=== PATIENT | female | born 1935 | race Caucasian/White ===

== ENCOUNTER 2016-10-27 11:27 | Inpatient (IN) ==
[2016-10-27] MEDS ORDERED: ALBUTEROL 2.5 MG/3 ML NEB RESP TX STA (11:48)
[2016-10-27] MEDS ORDERED: methylPREDNISolone SOD SUC 125 MG/2 ML VIAL IV STA (11:49)
--- NOTE | 2016-10-27 11:52 | Emergency Department Note ---
Enrrique Davis Meredith, am scribing for, and in the presence of, Kenneth Romero MD 11: 48. Heather Davis James D, MD, personally performed the services described in this documentation, ascribed by Montserrat Osuna in my presence, and it is both accurate and complete . Arrival - Arrival Chief Complaint: Weakness ED Nursing Triage Note: Brought in by EMS c/o generalized weakness and multiple falls-onset last night. Patient was dx with pneumonia here on Tuesday. C/o generalized pain. Denies SOB or CP. Mode of Arrival: Stretcher Limitations: No Limitations Source: Patient, Old Records Reviewed, RN Notes Reviewed Time Seen by Provider: 10/27/16 11:44 - History of Present Illness HPI Narrative: Pt is an 81 y/o white female brought to the ED by EMS with c/o generalized weakness and multiple falls since last night. She was seen here 2 days ago and was diagnosed with pneumonia. Pt denies any chest pain or shortness of breath. She has a history of HTN, NIDDM, UTI, GI bleed, IBS, GERD, arthritis, and anemia. Onset (ago): hour(s) Date of Last Menstrual Period: hysterectomy Allergies/Adverse Reactions: Allergies Allergy/AdvReac Type Severity Reaction Status Date / Time Iodinated Contrast Media - Allergy SHORTNESS Verified 03/18/16 17:28 IV Dye OF BREATH Amoxicillin [From Augmentin] AdvReac Vomiting Verified 03/18/16 17:28 clavulanic acid AdvReac Vomiting Verified 03/18/16 17:28 [From Augmentin] Home Medications: Home Medications Medication Instructions Recorded Confirmed Type Ascorbic Acid [Vitamin C] 500 mg PO DAILY 03/18/16 10/25/16 History Aspirin [Ecotrin] 81 mg PO DAILY 03/18/16 10/25/16 History Dicyclomine Cap/Tab [Bentyl 10 mg PO BID 03/18/16 10/25/16 History Cap/Tab] Ferrous Sulfate 325 mg PO BID 03/18/16 10/25/16 History Fosinopril [Monopril] 20 mg PO DAILY W/SUPPER 03/18/16 10/25/16 History Gabapentin Cap/Tab [Neurontin 300 mg PO QAM 03/18/16 10/25/16 History Cap/Tab] Gemfibrozil 600 mg PO BID 03/18/16 10/25/16 History NIFEdipine XL TAB [Procardia Xl] 60 mg PO DAILY 03/18/16 10/25/16 History Omeprazole 40 mg PO QAM 03/18/16 10/25/16 History Polyethylene Glycol Powder 17 gm PO QPM 03/18/16 10/25/16 History [Miralax] Saccharomyces Boulardii [Probiotic] 250 mg PO DAILY 03/18/16 10/25/16 History glipiZIDE [Glipizide] 10 mg PO BID 03/18/16 10/25/16 History hydroCHLOROthiazide 25 mg PO DAILY 03/18/16 10/25/16 History [Hydrochlorothiazide] Albuterol Neb [Proventil Neb] 2.5 mg RESP TX RT Q8H #90 03/24/16 10/25/16 Rx nebulization solution Gabapentin 300 mg PO QPM 10/25/16 10/25/16 History Levofloxacin Tab [Levaquin Tab] 500 mg PO DAILY #7 tablet 10/25/16 Rx Metformin HCl [Metformin HCl ER] 750 mg PO DAILY W/BREAKFAST 10/25/16 10/25/16 History Ondansetron [Ondansetron Odt] 4 mg PO Q4H PRN #10 tab.rapdis 10/25/16 Rx metFORMIN [Glucophage] 500 mg PO DAILY W/SUPPER 10/25/16 10/25/16 History Review of System - Review of System 12 point system: reviewed and no additional remarkable complaints except as stated - Review of System Constitutional: Present: as per HPI, weakness (multiple falls) Respiratory: Present: as per HPI, other (recent pneumonia diagnosis) Medical,Surgical,& Family Hx - Medical History Cardio: History of: Hypertension Endocrine: History of: Diabetes Mellitus (NIDDM) Respiratory: History of: Bronchitis, Pneumonia Genitourinary: History of: Recurring Urinary Tract Infections Gastrointestinal: History of: GERD, Gastrointestinal Bleed, GI Problems (IBS) Musculoskeletal: History of: Back/Neck Problems, Musculoskeletal Problems ( Arthritis) Hematology: History of: Anemia - Surgical History HEENT Surgeries: Surgical HX of: Eye Surgery (Cataracts), Tonsilectomy & Adenoidectomy Abdominal Surgeries: Surgical HX of: Appendectomy Reproductive Surgeries: Surgical HX of;: Hysterectomy Orthopedic Surgeries: Surgical HX of;: Total Hip Replacement, Total Knee Replacement - Family History Family History: Reports;: Family Cancer (2 Sister, 1 brother), Family Diabetes ( mother, 2 sisters, 1 brother), Family Heart Disease (1 sister), Family Hypertension (mother, father,), Family Stroke (father) Denies;: Family Anesthesia Reaction, Family Psychiatric Problems - Social History Smoking Status: Never smoker Frequency of Alcohol Use: None Type of Drug Use: None Exam Physical Examination: GENERAL: This is a well-nourished, well-developed white female in no apparent distress. VITAL SIGNS: Temperature: 98.0, Pulse: 73, Respirations: 22, Blood pressure: 150 /60, O2 Saturation: 94 HEENT: Head is normocephalic and atraumatic. Pupils are equally round and reactive to light. Extraocular movement are intact. Oropharynx is benign with moist mucous membranes. NECK: Neck is soft and supple without tenderness. There are no masses. There is no lymphadenopathy. LUNGS:Expiratory wheezes in bilateral posterior lung bassett. Chest rises symmetrically. There is no chest wall tenderness. CV: Heart is regular rate and rhythm without murmurs, rubs, or gallops. ABDOMEN: Abdomen is soft, non-tender to palpation. There are no abnormal masses palpated. There is no organomegaly. Bowel sounds are present and active. SKIN: Skin is warm and dry. No rash. EXTREMITIES: Patient has full range of motion without tenderness. There is no pedal edema. Generalized muscle weakness. NEUROLOGIC: Awake, alert, and oriented x4. Cranial nerves II through XII are grossly intact. There are no motorsensory deficits. PSYCHIATRIC: Normal affect. Normal mood. Vital Signs: Vital Signs Temperature 98.0 F 10/27/16 11:33 Pulse Rate 73 10/27/16 11:33 Respiratory Rate 18 10/27/16 11:41 Blood Pressure 150/60 10/27/16 11:33 O2 Sat by Pulse Oximetry 94 L 10/27/16 11:33 Course - Consultations Consultation #1: Discussed with Dr. Davis. Patient will be admitted to his service. Initial orders written for him. Time: :52 Disposition Clinical Impression: Pneumonia, Failed outpatient therapy, Generalized weakness Case discussed with: patient Disposition: Still a Patient Condition: Stable Time of Disposition: 11:52
--- NOTE | 2016-10-27 12:16 | XRay Report ---
XR chest 1V portable Indication: Pneumonia Comparison: Chest x-ray 10/25/2016 Technique: Portable AP chest was performed. Findings: Interval partial clearing of airspace opacities in the right cardiophrenic angle is demonstrated. The chest is otherwise stable. Impression: 1. Interval partial clearing of the lower right lung is demonstrated. 10/27/2016 12:13 PM PROCEDURE INTERPRETED AT [facility] DEPARTMENT OF RADIOLOGY Final Report Signed by: Dr. Franklin Harding
[2016-10-27 12:44] LABS: Basophils % 0.2 % (0.0-0.8); Eosinophils # 0.1 10*3/uL (0.0-0.87); Eosinophils % 0.7 % (0.00-10.9); Hematocrit 31.2 VOL% (35.7-47.0); Hemoglobin 10.2 GM/DL (12.0-16.0); Immature Granulocytes Absolute 0.17 #; Lymphocytes # 0.8 10*3/uL (1.4-4.0); Lymphocytes % 4.8 % (21.3-54.2); Mean Corpuscular HGB Conc 32.7 GM/DL (32-36); Mean Corpuscular Hemoglobin 30 PG (27-34); Mean Corpuscular Volume 90.2 FL (87-102); Mean Platelet Volume 11.7 FL (9.6-12.0); Monocytes % 6.2 % (1.7-12.7); Neutrophils # 14.4 10*3/uL (1.4-7.4); Neutrophils % 87.1 % (38.7-73.9); Platelet Count 261 T/CUMM (130-400); Red Blood Count 3.46 MC/CUMM (3.8-5.5); Red Cell Distribution Width 12.8 % (9.3-17.3); White Blood Count 16.5 T/CUMM (4-12)
[2016-10-27 13:25] LABS: Alanine Aminotransferase 13 U/L (13-56); Albumin 3.1 G/DL (3.4-5.0); Alkaline Phosphatase 71 U/L (45-117); Aspartate Amino Transferase 18 U/L (0-37); Bilirubin,Total < 0.39 MG/DL (0.2-1.0); Blood Urea Nitrogen 40 MG/DL (7-18); Calcium 9.1 MG/DL (8.5-10.1); Glucose 53 MG/DL (74-106); Osmolality,Calculated 285.4 MOS/KG (273-304); Sodium 140 MMOL/L (136-145); Total Protein 5.7 G/DL (6.4-8.3)
[2016-10-27] MEDS ORDERED: methylPREDNISolone SOD SUC 125 MG/2 ML VIAL ONE (13:38)
[2016-10-27] MEDS: SODIUM CHLORIDE 0.9% 1,000 ML IV SCH (15:20)
[2016-10-27] MEDS: LEVOFLOXACIN INJ 500 MG in PREMIX 1 EACH IV SCH (15:20)
--- NOTE | 2016-10-27 17:51 | Family Practice History&Phys ---
Assessment and Plan (1) right lower lobe pneumonia Status: Acute Assessment and plan: We will admit for IV hydration and antibiotics Current Visit: Yes (2) Generalized weakness Status: Acute Assessment and plan: Probably multifactorial in nature. Will monitor closely consult physical therapy Current Visit: Yes (3) type 2 diabetes mellitus Status: Chronic Assessment and plan: Resume home medications and start on sliding scale Current Visit: No (4) renal insufficiency Status: Acute Assessment and plan: We will hydrate well and monitor. We'll repeat labs a.m. Current Visit: Yes (5) hyperlipidemia Status: Chronic Assessment and plan: Resume home medications Current Visit: Yes (6) hypertension Status: Chronic Assessment and plan: Resume home medications and monitor closely Current Visit: No (7) gastroesophageal reflux Status: Chronic Assessment and plan: Elevate head of bed resume home meds Current Visit: Yes History of Present Illness Chief complaint: cough and nausea vomiting History of present illness: Ms. Goldstein is a 81 year old female Patient is an 81-year-old white female who was brought to emergency room by ambulance after she became extremely weak at home. Patient was seen in the emergency room on Tuesday and diagnosed as having a right lower lobe pneumonia. She had been having this nausea vomiting and became extremely weak. She apparently had fallen several times at home. She progressively became weaker. She was brought to the emergency room by ambulance where she was admitted for further evaluation and therapy. Home Medications Medication Instructions Recorded Confirmed Type Ascorbic Acid [Vitamin C] 500 mg PO DAILY 03/18/16 10/27/16 History Aspirin [Ecotrin] 81 mg PO DAILY 03/18/16 10/27/16 History Dicyclomine Cap/Tab [Bentyl 10 mg PO BID 03/18/16 10/27/16 History Cap/Tab] Ferrous Sulfate 325 mg PO BID 03/18/16 10/27/16 History Fosinopril [Monopril] 20 mg PO DAILY W/SUPPER 03/18/16 10/27/16 History Gabapentin Cap/Tab [Neurontin 300 mg PO QAM 03/18/16 10/27/16 History Cap/Tab] Gemfibrozil 600 mg PO BID 03/18/16 10/27/16 History NIFEdipine XL TAB [Procardia Xl] 60 mg PO DAILY 03/18/16 10/27/16 History Omeprazole 40 mg PO QAM 03/18/16 10/27/16 History Polyethylene Glycol Powder 17 gm PO QPM 03/18/16 10/27/16 History [Miralax] Saccharomyces Boulardii [Probiotic] 250 mg PO DAILY 03/18/16 10/27/16 History glipiZIDE [Glipizide] 10 mg PO BID 03/18/16 10/27/16 History hydroCHLOROthiazide 25 mg PO DAILY 03/18/16 10/27/16 History [Hydrochlorothiazide] Albuterol Neb [Proventil Neb] 2.5 mg RESP TX RT Q8H #90 03/24/16 10/27/16 Rx nebulization solution Gabapentin 300 mg PO QPM 10/25/16 10/27/16 History Levofloxacin Tab [Levaquin Tab] 500 mg PO DAILY #7 tablet 10/25/16 10/27/16 Rx Metformin HCl [Metformin HCl ER] 750 mg PO DAILY W/BREAKFAST 10/25/16 10/27/16 History Ondansetron [Ondansetron Odt] 4 mg PO Q4H PRN #10 tab.rapdis 10/25/16 10/27/16 Rx metFORMIN [Glucophage] 500 mg PO DAILY W/SUPPER 10/25/16 10/27/16 History Allergies Allergy/AdvReac Type Severity Reaction Status Date / Time Iodinated Contrast Media - Allergy SHORTNESS Verified 03/18/16 17:28 IV Dye OF BREATH Amoxicillin [From Augmentin] AdvReac Vomiting Verified 03/18/16 17:28 clavulanic acid AdvReac Vomiting Verified 03/18/16 17:28 [From Augmentin] Medical,Surgical,& Family Hx - Medical History Cardio: History of: Hypertension Neurology: History of: Peripheral Neuropathy HEENT: History of: Dental Problems Endocrine: History of: Diabetes Mellitus (NIDDM), Dyslipidemia Respiratory: History of: Bronchitis, Pneumonia Genitourinary: History of: Recurring Urinary Tract Infections Gastrointestinal: History of: GERD, Gastrointestinal Bleed, GI Problems (IBS) Musculoskeletal: History of: Back/Neck Problems, Musculoskeletal Problems ( Arthritis) Hematology: History of: Anemia - Surgical History HEENT Surgeries: Surgical HX of: Eye Surgery (Cataracts), Tonsilectomy & Adenoidectomy Abdominal Surgeries: Surgical HX of: Appendectomy Reproductive Surgeries: Surgical HX of;: Genitourinary Surgery (bladder suspension), Hysterectomy Orthopedic Surgeries: Surgical HX of;: Total Hip Replacement, Total Knee Replacement - Family History Family History: Reports;: Family Cancer (2 Sister, 1 brother), Family Diabetes ( mother, 2 sisters, 1 brother), Family Heart Disease (1 sister), Family Hypertension (mother, father,), Family Stroke (father) Denies;: Family Anesthesia Reaction, Family Psychiatric Problems - Social History Smoking Status: Never smoker Frequency of Alcohol Use: None Type of Drug Use: None Marital Status: Lives With:: Children Functional capacity: uses cane/walker Exam - Constitutional Vitals: Period Temp Pulse Resp BP Sys/Mendez Pulse Ox Last 24 Hr 98 F-99.6 F 68-76 16-28 103-158/50-60 91-99 General appearance: mild distress - Head Head exam: Present: normal inspection - ENT ENT exam: Present: normal exam - Neck Neck exam: Present: normal inspection - Respiratory Respiratory exam: Present: rhonchi - Cardiovascular Cardiovascular exam: Present: irregular rhythm - GI/Abdominal GI/Abdominal exam: Present: normal bowel sounds, soft - Extremities Exam Extremities exam: Present: full ROM, edema - Back Exam Back exam: Present: normal inspection - Neurological Exam Neurological exam: Present: alert, oriented X3 - Psychiatric Psychiatric exam: Present: normal affect - Skin Skin exam: Present: normal color Results - Labs CBC & BMP: 10/27/16 12:34 10/27/16 12:34
[2016-10-27] MEDS: ACETAMINOPHEN 325 MG TABLET PO PRN (21:32)
[2016-10-27] MEDS: GABAPENTIN 300 MG CAPSULE PO SCH (21:33)
[2016-10-27] MEDS: DICYCLOMINE 10 MG CAPSULE PO SCH (21:33)
[2016-10-27] MEDS: GEMFIBROZIL 600 MG TABLET PO SCH (21:33)
[2016-10-27] MEDS: DOCUSATE SODIUM 100 MG CAPSULE PO SCH (21:33)
[2016-10-27] MEDS: glipiZIDE 10 MG TABLET PO SCH (21:33)
[2016-10-27] MEDS: INSULIN LISPRO 100 UNIT/ML SUBCUT SCH ×2 (21:34→21:37)
[2016-10-27] MEDS: FERROUS SULFATE 325 MG TABLET PO SCH (21:35)
[2016-10-28] MEDS: SODIUM CHLORIDE 0.9% 1,000 ML IV SCH ×2 (00:35→08:22)
[2016-10-28 03:15] LABS: Basophils % 0.1 % (0.0-0.8); Hematocrit 29.7 VOL% (35.7-47.0); Hemoglobin 9.5 GM/DL (12.0-16.0); Immature Granulocytes % 1.1 %; Immature Granulocytes Absolute 0.12 #; Lymphocytes # 0.5 10*3/uL (1.4-4.0); Lymphocytes % 4.3 % (21.3-54.2); Mean Corpuscular Hemoglobin 29 PG (27-34); Mean Corpuscular Volume 90.8 FL (87-102); Mean Platelet Volume 12.2 FL (9.6-12.0); Monocytes # 0.4 10*3/uL (0.11-0.8); Monocytes % 3.5 % (1.7-12.7); Neutrophils # 10.2 10*3/uL (1.4-7.4); Platelet Count 269 T/CUMM (130-400); Red Blood Count 3.27 MC/CUMM (3.8-5.5); Red Cell Distribution Width 12.4 % (9.3-17.3); White Blood Count 11.2 T/CUMM (4-12)
[2016-10-28 03:19] LABS: Albumin 2.7 G/DL (3.4-5.0); Bilirubin,Total 1.2 MG/DL (0.2-1.0); Calcium 8.6 MG/DL (8.5-10.1); Potassium 4.4 MMOL/L (3.5-5.1); Total Protein 5.2 G/DL (6.4-8.3)
[2016-10-28 03:25] LABS: Ferritin 211.2 ng/ml (8-252); Magnesium 2.2 MG/DL (1.8-2.4); Thyroid Stimulating Hormone 0.336 uIU/ml (0.358-3.74)
[2016-10-28 04:54] LABS: Hypochromasia Slight; Microcytosis Slight; Platelet Estimate Normal
--- NOTE | 2016-10-28 08:10 | Family Practice Progress Note ---
Family Practice - PN: Subj Interval history: Patient states she feels much better today. She is afebrile with minimal cough today. Blood pressures have been elevated. On questioning patient states that she is only been taking 30 mg of her nifedipine instead of the 60 mg that had originally been ordered. She had reduced the dosage after having some significant diarrhea earlier this week. We will resume the 60 mg of nifedipine today. Her a.m. labs are stable except for a hemoglobin of 9.5 hematocrit 29.7. Creatinine is minimally elevated at 1.5. Osmolarity is still elevated consistent with some volume depletion. Patient is also complaining of pain in her right leg and foot secondary to the fall. We will order x-rays of these today. We will consult physical therapy to ambulate. Appearance-general alert and oriented HEENT-no acute changes Heart-irregular rate and rhythm no murmurs Lungs-clear to auscultation Abdomen-soft and nontender Extremities-slight edema, has tenderness in the right lower leg ankle and foot Neurological exam-stable to present Exam (Progress Note) - Constitutional Vitals: Period Temp Pulse Resp BP Sys/Mendez Pulse Ox Last 24 Hr 98 F-99.6 F 67-77 16-28 103-176/50-72 91-99 Results - Labs CBC & BMP: 10/28/16 02:17 10/28/16 02:17 Assessment and Plan (1) right lower lobe pneumonia Status: Acute Assessment and plan: We will admit for IV hydration and antibiotics Current Visit: Yes (2) Generalized weakness Status: Acute Assessment and plan: Probably multifactorial in nature. Will monitor closely consult physical therapy Current Visit: Yes (3) type 2 diabetes mellitus Status: Chronic Assessment and plan: Resume home medications and start on sliding scale Current Visit: No (4) renal insufficiency Status: Acute Assessment and plan: We will hydrate well and monitor. We'll repeat labs a.m. Current Visit: Yes (5) hyperlipidemia Status: Chronic Assessment and plan: Resume home medications Current Visit: Yes (6) hypertension Status: Chronic Assessment and plan: Resume home medications and monitor closely Current Visit: No (7) gastroesophageal reflux Status: Chronic Assessment and plan: Elevate head of bed resume home meds Current Visit: Yes
[2016-10-28] MEDS: LEVOFLOXACIN INJ 500 MG in PREMIX 1 EACH IV SCH (08:25)
[2016-10-28] MEDS: ASPIRIN EC 81 MG TABLET PO SCH (08:30)
[2016-10-28] MEDS: GABAPENTIN 300 MG CAPSULE PO SCH ×2 (08:30→21:19)
[2016-10-28] MEDS: FERROUS SULFATE 325 MG TABLET PO SCH ×2 (08:30→21:20)
[2016-10-28] MEDS: glipiZIDE 10 MG TABLET PO SCH ×2 (08:31→21:19)
[2016-10-28] MEDS: DOCUSATE SODIUM 100 MG CAPSULE PO SCH ×2 (08:31→21:19)
[2016-10-28] MEDS: hydroCHLOROthiazide 25 MG TABLET PO SCH (08:31)
[2016-10-28] MEDS: PANTOPRAZOLE 40 MG TABLET PO SCH (08:31)
[2016-10-28] MEDS: ASCORBIC ACID 500 MG TABLET PO SCH (08:31)
[2016-10-28] MEDS: DICYCLOMINE 10 MG CAPSULE PO SCH ×2 (08:31→21:20)
[2016-10-28] MEDS: GEMFIBROZIL 600 MG TABLET PO SCH ×2 (08:31→21:19)
[2016-10-28] MEDS: INSULIN LISPRO 100 UNIT/ML SUBCUT SCH ×2 (08:32→18:43)
--- NOTE | 2016-10-28 10:00 | Ultrasound Report ---
Exam: Carotid ultrasound Date: 10/28/2016 Comparison: None Technique: Duplex scans of the carotid and vertebral arteries using B-mode/Parker scale imaging and Doppler spectral analysis and color flow. Reason: Syncope Findings: The right ICA measures 3.3 mm in diameter and the left ICA measures 3. mm in diameter. Color-flow documented in the visualized arteries. The peak systolic velocities are as follows: Right CCA: 89.9 cm/s Right ICA: 118.4 cm/s Right ECA: 251.0 cm/s Left CCA: 163.6 cm/s Left ICA: 147.4 cm/s Left ECA: 126.4 cm/s The peak systolic ICA/CCA velocity ratios are as follows: 1.3 on the right and 0.9 on the left. Antegrade flow is present in both vertebral arteries. Impression:[Velocity measurements in the right ICA fall within the less than 50% stenosis range. The velocity measurements in the left ICA fall within the 50-69% stenosis range with heterogeneous plaque formation. However the artery is tortuous and the ICA/CCA ratio is normal which indicates that the stenosis may be less critical. Antegrade flow in both vertebral arteries.] The Society of Radiologists in Ultrasound consensus conference criteria was used. The Ultrasound images were captured and stored. PROCEDURE INTERPRETED AT [facility] DEPARTMENT OF RADIOLOGY Final Report Signed by: Dr. Sammie Nieto
--- NOTE | 2016-10-28 10:29 | XRay Report ---
Referring Physician: Rush Davis Exam: XR right ankle 2 views, XR right tibia/fibula 2 views, XR right foot 2 views Date: October 28, 2016 Reason: Right ankle pain, right foot pain secondary to fall, right leg pain secondary to fall, initial encounter Comparison: None Findings: The patient is status post right total knee replacement. Position and alignment appear satisfactory. There is mild adjacent heterotopic calcification. No acute fracture, dislocation or osseous destructive process is identified at the right tibia or fibula. There is soft tissue swelling at the right ankle, mainly at the lateral aspect. However, no acute fracture, dislocation or osseous destructive process is identified at the right ankle. There is diffuse demineralization/osteopenia at the right lower extremity. Mild hallux valgus is seen at the right foot. No acute fracture, dislocation or osseous destructive process is identified. Impression: 1. There is soft tissue swelling at the right ankle, mainly at the lateral aspect. However, no acute fracture is identified at the right ankle. 2. No acute fracture is identified at the right tibia/fibula. 3. No acute fracture is identified at the right foot. PROCEDURE INTERPRETED AT [facility] DEPARTMENT OF RADIOLOGY Final Report Signed by: Dr. Felisha Wu
[2016-10-28 10:33] LABS: Apearance,Urine CLEAR (Clear); Bilirubin,Urine Negative (Negative); Blood, Urine Negative (Negative); Glucose,Urine (UA) 150 mg/dL (Negative); Ketones,Urine Negative (Negative); Nitrite,Urine Negative (Negative); Protein,Urine 30 MG/DL; RBC,Urine 1 /HPF (0-4); Squamous Epithelial Cell,Urine Occasional /HPF (0-10); Urine Color Straw (Yellow); Urine Specific Gravity 1.011 (1.001-1.035); Urine Urobilinogen < 2.0 EU/DL (0.2-1.0); WBC,Urine <1 /HPF (0-6)
[2016-10-28] MEDS: FOSINOPRIL 20 MG TABLET PO SCH (18:44)
[2016-10-28] MEDS: metFORMIN 500 MG TABLET PO SCH (18:44)
[2016-10-28] MEDS ORDERED: cloNIDine 0.1 MG TABLET PO SCH (21:00)
[2016-10-28] MEDS: ZALEPLON 5 MG CAPSULE PO SCH (21:19)
[2016-10-29 06:56] LABS: Basophils # 0.1 10*3/uL (0.0-0.2); Basophils % 0.3 % (0.0-0.8); Eosinophils # 0.2 10*3/uL (0.0-0.87); Eosinophils % 1.5 % (0.00-10.9); Hemoglobin 9.6 GM/DL (12.0-16.0); Immature Granulocytes % 0.8 %; Immature Granulocytes Absolute 0.11 #; Lymphocytes # 1.2 10*3/uL (1.4-4.0); Lymphocytes % 7.9 % (21.3-54.2); Mean Corpuscular Hemoglobin 29 PG (27-34); Mean Corpuscular Volume 90.9 FL (87-102); Mean Platelet Volume 11.8 FL (9.6-12.0); Monocytes # 1.2 10*3/uL (0.11-0.8); Monocytes % 7.9 % (1.7-12.7); Neutrophils # 11.9 10*3/uL (1.4-7.4); Neutrophils % 81.6 % (38.7-73.9); Platelet Count 306 T/CUMM (130-400); Red Cell Distribution Width 12.6 % (9.3-17.3); White Blood Count 14.6 T/CUMM (4-12)
[2016-10-29] MEDS: INSULIN LISPRO 100 UNIT/ML SUBCUT SCH ×5 (07:28→20:53)
[2016-10-29 07:39] LABS: Calcium 8.6 MG/DL (8.5-10.1); Ferritin 176.4 ng/ml (8-252); Free T4 (Free Thyroxine) 1.07 NG/DL (0.76-1.46); Osmolality,Calculated 298.3 MOS/KG (273-304); Thyroid Stimulating Hormone 0.707 uIU/ml (0.358-3.74)
[2016-10-29] MEDS: SODIUM CHLORIDE 0.9% 1,000 ML IV SCH ×4 (08:58→22:08)
[2016-10-29] MEDS: DICYCLOMINE 10 MG CAPSULE PO SCH ×2 (08:59→20:25)
[2016-10-29] MEDS: GABAPENTIN 300 MG CAPSULE PO SCH ×2 (08:59→18:12)
[2016-10-29] MEDS: hydroCHLOROthiazide 25 MG TABLET PO SCH (08:59)
[2016-10-29] MEDS: LEVOFLOXACIN INJ 500 MG in PREMIX 1 EACH IV SCH (08:59)
[2016-10-29] MEDS: DOCUSATE SODIUM 100 MG CAPSULE PO SCH ×2 (08:59→20:25)
[2016-10-29] MEDS: FERROUS SULFATE 325 MG TABLET PO SCH ×2 (08:59→20:25)
[2016-10-29] MEDS: ASPIRIN EC 81 MG TABLET PO SCH (08:59)
[2016-10-29] MEDS: GEMFIBROZIL 600 MG TABLET PO SCH ×2 (08:59→20:25)
[2016-10-29] MEDS: ASCORBIC ACID 500 MG TABLET PO SCH (08:59)
[2016-10-29] MEDS: PANTOPRAZOLE 40 MG TABLET PO SCH (08:59)
[2016-10-29] MEDS: glipiZIDE 10 MG TABLET PO SCH ×2 (08:59→20:25)
--- NOTE | 2016-10-29 14:08 | Family Practice Progress Note ---
Family Practice - PN: Subj Interval history: Patient states that she feels stronger today. She has had increased cough and wheezing. She uses a home nebulizer and Advair at home. She has not been on any bronchodilators in the hospital. Her appetite is slowly improving. Reviewed her labs and studies. Denies any other related complaints. Seems to be slowly improved. Appearance-general alert and oriented HEENT-no acute changes Heart-regular rate and rhythm no murmurs Lungs-wheezing in bases bilaterally Abdomen-soft and nontender, no masses Extremities-slight edema Neurological exam-stable to present PLAN-we will start on respiratory treatments AND cough suppressants. She is presently on Levaquin. We will plan to repeat chest x-ray in a.m.. We will continue to increase activity. Her blood pressures have been running slightly high so we will modify her blood pressure medications. Exam (Progress Note) - Constitutional Vitals: Period Temp Pulse Resp BP Sys/Mendez Pulse Ox Last 24 Hr 97 F-99.2 F 69-82 18-22 128-166/58-86 90-98 Results - Labs CBC & BMP: 10/29/16 06:22 10/29/16 06:22 Assessment and Plan (1) right lower lobe pneumonia Status: Acute Assessment and plan: We will admit for IV hydration and antibiotics Current Visit: Yes (2) Generalized weakness Status: Acute Assessment and plan: Probably multifactorial in nature. Will monitor closely consult physical therapy Current Visit: Yes (3) type 2 diabetes mellitus Status: Chronic Assessment and plan: Resume home medications and start on sliding scale Current Visit: No (4) renal insufficiency Status: Acute Assessment and plan: We will hydrate well and monitor. We'll repeat labs a.m. Current Visit: Yes (5) hyperlipidemia Status: Chronic Assessment and plan: Resume home medications Current Visit: Yes (6) hypertension Status: Chronic Assessment and plan: Resume home medications and monitor closely Current Visit: No (7) gastroesophageal reflux Status: Chronic Assessment and plan: Elevate head of bed resume home meds Current Visit: Yes
[2016-10-29] MEDS: metFORMIN 500 MG TABLET PO SCH (16:55)
[2016-10-29] MEDS: FOSINOPRIL 20 MG TABLET PO SCH (16:56)
[2016-10-29] MEDS: ALBUTEROL/IPRATROPIUM 3 ML NEB RESP TX SCH (19:58)
[2016-10-29] MEDS: ZALEPLON 5 MG CAPSULE PO SCH (20:25)
[2016-10-29] MEDS: cloNIDine 0.1 MG TABLET PO SCH (20:25)
[2016-10-29] MEDS: ONDANSETRON 4 MG/2 ML VIAL IV PRN (20:47)
[2016-10-29] MEDS: FLUTICASONE/SALMETEROL 250-50 DISKUS 14 DOSE INH SCH (20:53)
[2016-10-29] MEDS: HYDROcodone/CHLORPHENIRAMINE ER 5 ML UDCUP PO PRN (21:35)
[2016-10-30] MEDS: ALBUTEROL/IPRATROPIUM 3 ML NEB RESP TX SCH ×4 (00:05→20:34)
[2016-10-30 04:08] LABS: Basophils % 0.3 % (0.0-0.8); Eosinophils # 0.3 10*3/uL (0.0-0.87); Eosinophils % 3.3 % (0.00-10.9); Hematocrit 27.9 VOL% (35.7-47.0); Hemoglobin 8.9 GM/DL (12.0-16.0); Immature Granulocytes % 0.7 %; Immature Granulocytes Absolute 0.07 #; Lymphocytes # 1.6 10*3/uL (1.4-4.0); Lymphocytes % 17.1 % (21.3-54.2); Mean Corpuscular HGB Conc 31.9 GM/DL (32-36); Mean Corpuscular Hemoglobin 29 PG (27-34); Mean Corpuscular Volume 89.4 FL (87-102); Mean Platelet Volume 11.7 FL (9.6-12.0); Monocytes # 1.1 10*3/uL (0.11-0.8); Monocytes % 11.9 % (1.7-12.7); Neutrophils # 6.3 10*3/uL (1.4-7.4); Neutrophils % 66.7 % (38.7-73.9); Platelet Count 291 T/CUMM (130-400); Red Blood Count 3.12 MC/CUMM (3.8-5.5); Red Cell Distribution Width 12.8 % (9.3-17.3); White Blood Count 9.5 T/CUMM (4-12)
[2016-10-30 04:37] LABS: Calcium 8.1 MG/DL (8.5-10.1); Osmolality,Calculated 288.7 MOS/KG (273-304); Potassium 3.8 MMOL/L (3.5-5.1)
[2016-10-30] MEDS: FERROUS SULFATE 325 MG TABLET PO SCH ×2 (08:09→20:08)
[2016-10-30] MEDS: ASCORBIC ACID 500 MG TABLET PO SCH (08:09)
[2016-10-30] MEDS: GABAPENTIN 300 MG CAPSULE PO SCH ×2 (08:09→20:08)
[2016-10-30] MEDS: DOCUSATE SODIUM 100 MG CAPSULE PO SCH ×2 (08:09→20:09)
[2016-10-30] MEDS: hydroCHLOROthiazide 25 MG TABLET PO SCH (08:09)
[2016-10-30] MEDS: glipiZIDE 10 MG TABLET PO SCH ×2 (08:09→20:09)
[2016-10-30] MEDS: DICYCLOMINE 10 MG CAPSULE PO SCH ×2 (08:09→20:09)
[2016-10-30] MEDS: GEMFIBROZIL 600 MG TABLET PO SCH (08:09)
[2016-10-30] MEDS: PANTOPRAZOLE 40 MG TABLET PO SCH (08:10)
[2016-10-30] MEDS: ASPIRIN EC 81 MG TABLET PO SCH (08:10)
[2016-10-30] MEDS: LEVOFLOXACIN INJ 500 MG in PREMIX 1 EACH IV SCH (08:10)
[2016-10-30] MEDS: INSULIN LISPRO 100 UNIT/ML SUBCUT SCH ×4 (08:10→20:11)
[2016-10-30] MEDS: FLUTICASONE/SALMETEROL 250-50 DISKUS 14 DOSE INH SCH ×2 (08:18→20:10)
[2016-10-30] MEDS: POLYETHYLENE GLYCOL POWDER 17 GM PACK PO SCH (09:14)
--- NOTE | 2016-10-30 09:27 | Family Practice Progress Note ---
Family Practice - PN: Subj Interval history: Patient states she feels better but is still extremely weak. Still has moderate nonproductive cough. Chest x-ray pending this a.m.. Test feels that she is breathing better overall. main complaint is constipation. A.m. vitals and labs are stable. Reviewed findings in detail. Appearance-general alert and oriented HEENT-no acute changes Heart-irregular rate and rhythm no murmurs Lungs-patient has slight wheezing in right base but overall much improved Abdomen-soft and nontender Extremities-slight edema Neurological exam-stable to present PLAN: We will continue present therapy and increase activity. Will review chest x-ray when available. Hopefully will continue to improve Exam (Progress Note) - Constitutional Vitals: Period Temp Pulse Resp BP Sys/Mendez Pulse Ox Last 24 Hr 97.3 F-98.7 F 51-88 16-20 124-166/51-96 89-98 Results - Labs CBC & BMP: 10/30/16 03:23 10/30/16 03:23 Assessment and Plan (1) right lower lobe pneumonia Status: Acute Assessment and plan: We will admit for IV hydration and antibiotics Current Visit: Yes (2) Generalized weakness Status: Acute Assessment and plan: Probably multifactorial in nature. Will monitor closely consult physical therapy Current Visit: Yes (3) type 2 diabetes mellitus Status: Chronic Assessment and plan: Resume home medications and start on sliding scale Current Visit: No (4) renal insufficiency Status: Acute Assessment and plan: We will hydrate well and monitor. We'll repeat labs a.m. Current Visit: Yes (5) hyperlipidemia Status: Chronic Assessment and plan: Resume home medications Current Visit: Yes (6) hypertension Status: Chronic Assessment and plan: Resume home medications and monitor closely Current Visit: No (7) gastroesophageal reflux Status: Chronic Assessment and plan: Elevate head of bed resume home meds Current Visit: Yes
[2016-10-30] MEDS: SODIUM CHLORIDE 0.9% 1,000 ML IV SCH ×2 (09:39→23:00)
--- NOTE | 2016-10-30 10:33 | XRay Report ---
2 view chest. Indication: Pneumonia. Comparison: October 27, 2016. The heart is normal in size. There is calcific plaque present within the aortic knob. The pulmonary vasculature is normal. There are interstitial infiltrates, mild in severity, at the lung bases, with slight worsening on the left compared to the previous study. No pleural effusion. No pneumothorax. Demineralization of the osseous structures, with exaggerated kyphosis and degenerative change. Impression: Basilar infiltrates, with left basilar worsening. PROCEDURE INTERPRETED AT [facility] DEPARTMENT OF RADIOLOGY Final Report Signed by: Dr. Celine Mckeon
[2016-10-30] MEDS: metFORMIN 500 MG TABLET PO SCH (17:17)
[2016-10-30] MEDS: FOSINOPRIL 20 MG TABLET PO SCH (17:17)
[2016-10-30] MEDS: ZALEPLON 5 MG CAPSULE PO SCH (20:09)
[2016-10-30] MEDS: cloNIDine 0.1 MG TABLET PO SCH (20:09)
[2016-10-31] MEDS: ALBUTEROL/IPRATROPIUM 3 ML NEB RESP TX SCH ×4 (00:50→21:08)
[2016-10-31] MEDS: ACETAMINOPHEN 325 MG TABLET PO PRN (03:40)
[2016-10-31 03:48] LABS: Basophils % 0.4 % (0.0-0.8); Eosinophils # 0.3 10*3/uL (0.0-0.87); Hematocrit 28.3 VOL% (35.7-47.0); Hemoglobin 8.8 GM/DL (12.0-16.0); Immature Granulocytes % 1.4 %; Immature Granulocytes Absolute 0.13 #; Lymphocytes # 1.2 10*3/uL (1.4-4.0); Mean Corpuscular HGB Conc 31.1 GM/DL (32-36); Mean Corpuscular Hemoglobin 29 PG (27-34); Mean Corpuscular Volume 92.2 FL (87-102); Mean Platelet Volume 11.3 FL (9.6-12.0); Monocytes # 0.9 10*3/uL (0.11-0.8); Monocytes % 9.9 % (1.7-12.7); Neutrophils # 6.8 10*3/uL (1.4-7.4); Neutrophils % 72.3 % (38.7-73.9); Platelet Count 262 T/CUMM (130-400); Red Blood Count 3.07 MC/CUMM (3.8-5.5); Red Cell Distribution Width 12.7 % (9.3-17.3); White Blood Count 9.5 T/CUMM (4-12)
[2016-10-31 04:20] LABS: Albumin 2.4 G/DL (3.4-5.0); Bilirubin,Total 0.5 MG/DL (0.2-1.0); Calcium 8.4 MG/DL (8.5-10.1); Total Protein 4.6 G/DL (6.4-8.3)
[2016-10-31] MEDS: GEMFIBROZIL 600 MG TABLET PO SCH ×3 (07:53→20:58)
[2016-10-31] MEDS: ONDANSETRON 4 MG/2 ML VIAL IV PRN ×2 (07:55→17:07)
[2016-10-31] MEDS: POLYETHYLENE GLYCOL POWDER 17 GM PACK PO SCH (08:48)
[2016-10-31] MEDS: DOCUSATE SODIUM 100 MG CAPSULE PO SCH ×2 (08:49→20:58)
[2016-10-31] MEDS: DICYCLOMINE 10 MG CAPSULE PO SCH ×2 (08:49→20:58)
[2016-10-31] MEDS: hydroCHLOROthiazide 25 MG TABLET PO SCH (08:49)
[2016-10-31] MEDS: LEVOFLOXACIN INJ 500 MG in PREMIX 1 EACH IV SCH (08:49)
[2016-10-31] MEDS: PANTOPRAZOLE 40 MG TABLET PO SCH (08:49)
[2016-10-31] MEDS: FERROUS SULFATE 325 MG TABLET PO SCH ×2 (08:49→20:58)
[2016-10-31] MEDS: ASPIRIN EC 81 MG TABLET PO SCH (08:49)
[2016-10-31] MEDS: GABAPENTIN 300 MG CAPSULE PO SCH ×2 (08:49→18:19)
[2016-10-31] MEDS: glipiZIDE 10 MG TABLET PO SCH ×2 (08:49→20:59)
[2016-10-31] MEDS: ASCORBIC ACID 500 MG TABLET PO SCH (08:49)
[2016-10-31] MEDS: INSULIN LISPRO 100 UNIT/ML SUBCUT SCH ×4 (08:50→20:35)
[2016-10-31] MEDS: FLUTICASONE/SALMETEROL 250-50 DISKUS 14 DOSE INH SCH ×2 (08:59→20:59)
--- NOTE | 2016-10-31 12:16 | Family Practice Progress Note ---
Family Practice - PN: Subj Interval history: Patient states she vomited this a.m.. States that she is having difficulty with food hanging in her upper esophagus. She said this has progressed over the last several weeks. Does not occur with every meal but is becoming more frequent. She has had esophageal dilatations in the past for esophageal stricture. States present symptoms feel like symptoms that she had with previous stricture. Patient states that her cough is improved but is still present. Recent chest x-ray revealed some slight worsening of pneumonia left greater than right. Her a.m. labs are stable. Appearance-general alert and oriented, appears comfortable and relaxed HEENT-no acute changes Heart-regular rate and rhythm no murmurs Lungs-she continues to have some wheezing in bases but definitely improved. Abdomen-soft and nontender, no masses or nodules noted, normal bowel sounds Extremities-slight edema Neurological exam-stable to present P L A N: Will add steroids to her present medications for bronchospasm. Will consult GI and a.m. for possible EGD. Encourage patient increase activity and sitting in chair as much as possible. We will plan repeat lab studies in a.m.. We will also repeat chest x-ray in a.m.. Exam (Progress Note) - Constitutional Vitals: Period Temp Pulse Resp BP Sys/Mendez Pulse Ox Last 24 Hr 98.3 F-98.4 F 63-76 16-22 111-158/49-71 90-98 Results - Labs CBC & BMP: 10/31/16 03:22 10/31/16 03:22 Assessment and Plan (1) right lower lobe pneumonia Status: Acute Assessment and plan: We will admit for IV hydration and antibiotics Current Visit: Yes (2) Generalized weakness Status: Acute Assessment and plan: Probably multifactorial in nature. Will monitor closely consult physical therapy Current Visit: Yes (3) type 2 diabetes mellitus Status: Chronic Assessment and plan: Resume home medications and start on sliding scale Current Visit: No (4) renal insufficiency Status: Acute Assessment and plan: We will hydrate well and monitor. We'll repeat labs a.m. Current Visit: Yes (5) hyperlipidemia Status: Chronic Assessment and plan: Resume home medications Current Visit: Yes (6) hypertension Status: Chronic Assessment and plan: Resume home medications and monitor closely Current Visit: No (7) gastroesophageal reflux Status: Chronic Assessment and plan: Elevate head of bed resume home meds Current Visit: Yes
[2016-10-31] MEDS ORDERED: BISACODYL 5 MG TABLET PO ONE (12:32)
[2016-10-31] MEDS: SODIUM CHLORIDE 0.9% 1,000 ML IV SCH ×2 (13:29→17:49)
[2016-10-31] MEDS: FOSINOPRIL 20 MG TABLET PO SCH (16:39)
[2016-10-31] MEDS: metFORMIN 500 MG TABLET PO SCH (16:39)
[2016-10-31] MEDS: HYDROcodone/CHLORPHENIRAMINE ER 5 ML UDCUP PO PRN (17:44)
[2016-10-31] MEDS ORDERED: DEXTROSE 50% 25 GM/50 ML VIAL IV ONE (20:39)
[2016-10-31] MEDS: DEXTROSE 50% 25 GM/50 ML VIAL IV PRN (20:49)
[2016-10-31] MEDS: ZALEPLON 5 MG CAPSULE PO SCH (20:58)
[2016-10-31] MEDS: cloNIDine 0.1 MG TABLET PO SCH (20:58)
[2016-11-01] MEDS: ALBUTEROL/IPRATROPIUM 3 ML NEB RESP TX SCH ×4 (00:48→19:50)
[2016-11-01] MEDS: DEXTROSE 50% 25 GM/50 ML VIAL IV PRN ×2 (03:10→05:39)
[2016-11-01] MEDS: SODIUM CHLORIDE 0.9% 1,000 ML IV SCH (05:48)
[2016-11-01 06:42] LABS: Basophils % 0.3 % (0.0-0.8); Eosinophils # 0.4 10*3/uL (0.0-0.87); Eosinophils % 3.8 % (0.00-10.9); Hematocrit 26.6 VOL% (35.7-47.0); Hemoglobin 8.4 GM/DL (12.0-16.0); Immature Granulocytes % 2.4 %; Immature Granulocytes Absolute 0.22 #; Lymphocytes # 1.4 10*3/uL (1.4-4.0); Lymphocytes % 15.1 % (21.3-54.2); Mean Corpuscular HGB Conc 31.6 GM/DL (32-36); Mean Corpuscular Hemoglobin 29 PG (27-34); Mean Corpuscular Volume 90.8 FL (87-102); Mean Platelet Volume 11.9 FL (9.6-12.0); Monocytes % 10.2 % (1.7-12.7); Neutrophils # 6.3 10*3/uL (1.4-7.4); Neutrophils % 68.2 % (38.7-73.9); Platelet Count 279 T/CUMM (130-400); Red Blood Count 2.93 MC/CUMM (3.8-5.5); Red Cell Distribution Width 12.9 % (9.3-17.3); White Blood Count 9.3 T/CUMM (4-12)
[2016-11-01 07:21] LABS: Alanine Aminotransferase 13 U/L (13-56); Albumin 2.3 G/DL (3.4-5.0); Alkaline Phosphatase 56 U/L (45-117); Aspartate Amino Transferase 13 U/L (0-37); Bilirubin,Total < 0.39 MG/DL (0.2-1.0); Blood Urea Nitrogen 19 MG/DL (7-18); Glucose 55 MG/DL (74-106); Osmolality,Calculated 278.4 MOS/KG (273-304); Potassium 4.5 MMOL/L (3.5-5.1); Sodium 140 MMOL/L (136-145); Total Protein 4.6 G/DL (6.4-8.3)
[2016-11-01] MEDS ORDERED: LACTULOSE 20 GM/30 ML UDCUP PO ONE ×2 (08:54→14:29)
[2016-11-01] MEDS: GEMFIBROZIL 600 MG TABLET PO SCH ×2 (09:04→21:00)
[2016-11-01] MEDS: FERROUS SULFATE 325 MG TABLET PO SCH ×2 (09:04→21:03)
[2016-11-01] MEDS: ASCORBIC ACID 500 MG TABLET PO SCH (09:04)
[2016-11-01] MEDS: methylPREDNISolone SOD SUC 125 MG/2 ML VIAL IV SCH ×2 (09:05→16:49)
[2016-11-01] MEDS: ASPIRIN EC 81 MG TABLET PO SCH (09:05)
[2016-11-01] MEDS: GABAPENTIN 300 MG CAPSULE PO SCH ×2 (09:05→18:14)
[2016-11-01] MEDS: POLYETHYLENE GLYCOL POWDER 17 GM PACK PO SCH (09:05)
[2016-11-01] MEDS: DICYCLOMINE 10 MG CAPSULE PO SCH ×2 (09:05→21:02)
[2016-11-01] MEDS: PANTOPRAZOLE 40 MG TABLET PO SCH (09:05)
[2016-11-01] MEDS: DOCUSATE SODIUM 100 MG CAPSULE PO SCH ×2 (09:05→21:02)
[2016-11-01] MEDS: hydroCHLOROthiazide 25 MG TABLET PO SCH (09:05)
[2016-11-01] MEDS: FLUTICASONE/SALMETEROL 250-50 DISKUS 14 DOSE INH SCH ×2 (09:06→20:59)
[2016-11-01] MEDS: LEVOFLOXACIN INJ 500 MG in PREMIX 1 EACH IV SCH (09:06)
[2016-11-01] MEDS: INSULIN LISPRO 100 UNIT/ML SUBCUT SCH ×4 (10:17→21:00)
--- NOTE | 2016-11-01 10:36 | Gastrointestinal Consult Note ---
Assessment and Plan (1) Dysphagia Status: Acute Assessment and plan: 11/01-History of dysphagia with reported dilations in past. Recent worsening of difficulty with early satiety, difficulty with some solids and pills and regurgitation. Obtain [facility] records. Plan and addendum to follow by Dr Prasad. Current Visit: Yes History of Present Illness Chief complaint: Dysphagia History of present illness: Ms. Goldstein is a 81 year old female who presented to the hospital with onset of cough, nausea and vomiting. Pt states that last Tuesday she was seen in the ER for RLL pneumonia. She was discharged home at that time on Levaquin and Zofran for nausea. She was given followup appt with Dr Davis later that week. Pt states she progressively became weaker as the days went by and continued to have some episodes of nausea and vomiting. She states that she presented back to the ER on 10.27 for increased weakness and falls and was was admitted at that time. She is noted to have a history of HTN, DM, GERD, anemia and OA. She states that she has problems at home over the last several months of GERD and at times regurgitation after she eats. She states she takes Prilosec but this doesnt always control her symptoms. Pt has a history of dysphagia and states this has worsened over the last several months. She was scheduled for repeat EGD last June but states she has been sick off and on since this time and hasnt rescheduled. She reports having trouble at times with solids and pills. Reports early satiety with eating as well at times after taking several bites of food. Pt feels like she may at times be aspirating when she eats. She cannot recall her last EGD however states it was at [facility]. She denies any weight loss. Denies melena or hematochezia. Denies coffee ground or hematemesis. Her last colonoscopy was in 2013 with findings of diverticulosis. She has a history of anemia and takes iron for this daily. Home Medications Medication Instructions Recorded Confirmed Type Ascorbic Acid [Vitamin C] 500 mg PO DAILY 03/18/16 10/27/16 History Aspirin [Ecotrin] 81 mg PO DAILY 03/18/16 10/27/16 History Dicyclomine Cap/Tab [Bentyl 10 mg PO BID 03/18/16 10/27/16 History Cap/Tab] Ferrous Sulfate 325 mg PO BID 03/18/16 10/27/16 History Fosinopril [Monopril] 20 mg PO DAILY W/SUPPER 03/18/16 10/27/16 History Gabapentin Cap/Tab [Neurontin 300 mg PO QAM 03/18/16 10/27/16 History Cap/Tab] Gemfibrozil 600 mg PO BID 03/18/16 10/27/16 History NIFEdipine XL TAB [Procardia Xl] 60 mg PO DAILY 03/18/16 10/27/16 History Omeprazole 40 mg PO QAM 03/18/16 10/27/16 History Polyethylene Glycol Powder 17 gm PO QPM 03/18/16 10/27/16 History [Miralax] Saccharomyces Boulardii [Probiotic] 250 mg PO DAILY 03/18/16 10/27/16 History glipiZIDE [Glipizide] 10 mg PO BID 03/18/16 10/27/16 History hydroCHLOROthiazide 25 mg PO DAILY 03/18/16 10/27/16 History [Hydrochlorothiazide] Albuterol Neb [Proventil Neb] 2.5 mg RESP TX RT Q8H #90 03/24/16 10/27/16 Rx nebulization solution Gabapentin 300 mg PO QPM 10/25/16 10/27/16 History Levofloxacin Tab [Levaquin Tab] 500 mg PO DAILY #7 tablet 10/25/16 10/27/16 Rx Metformin HCl [Metformin HCl ER] 750 mg PO DAILY W/BREAKFAST 10/25/16 10/27/16 History Ondansetron [Ondansetron Odt] 4 mg PO Q4H PRN #10 tab.rapdis 10/25/16 10/27/16 Rx metFORMIN [Glucophage] 500 mg PO DAILY W/SUPPER 10/25/16 10/27/16 History Allergies Allergy/AdvReac Type Severity Reaction Status Date / Time Iodinated Contrast Media - Allergy SHORTNESS Verified 03/18/16 17:28 IV Dye OF BREATH Amoxicillin [From Augmentin] AdvReac Vomiting Verified 03/18/16 17:28 clavulanic acid AdvReac Vomiting Verified 03/18/16 17:28 [From Augmentin] Medical,Surgical,& Family Hx - Medical History Cardio: History of: Hypertension Neurology: History of: Peripheral Neuropathy HEENT: History of: Dental Problems Endocrine: History of: Diabetes Mellitus (NIDDM), Dyslipidemia Respiratory: History of: Bronchitis, Pneumonia Genitourinary: History of: Recurring Urinary Tract Infections Gastrointestinal: History of: GERD, Gastrointestinal Bleed, GI Problems (IBS) Musculoskeletal: History of: Back/Neck Problems, Musculoskeletal Problems ( Arthritis) Hematology: History of: Anemia - Surgical History HEENT Surgeries: Surgical HX of: Eye Surgery (Cataracts), Tonsilectomy & Adenoidectomy Abdominal Surgeries: Surgical HX of: Appendectomy Reproductive Surgeries: Surgical HX of;: Genitourinary Surgery (bladder suspension), Hysterectomy Orthopedic Surgeries: Surgical HX of;: Total Hip Replacement, Total Knee Replacement - Family History Family History: Reports;: Family Cancer (2 Sister, 1 brother), Family Diabetes ( mother, 2 sisters, 1 brother), Family Heart Disease (1 sister), Family Hypertension (mother, father,), Family Stroke (father) Denies;: Family Anesthesia Reaction, Family Psychiatric Problems - Social History Smoking Status: Never smoker Frequency of Alcohol Use: None Type of Drug Use: None 12 point system: reviewed and no additional remarkable complaints except as stated - Constitutional Constitutional: Present: as per HPI, weakness - EENT Eyes: Present: as per HPI Ears: Present: as per HPI Nose, mouth and throat: Present: as per HPI, dysphagia - Cardiovascular Cardiovascular: Present: as per HPI - Respiratory Respiratory: Present: as per HPI - Gastrointestinal Gastrointestinal: Present: as per HPI, dyspepsia, heartburn, nausea, vomiting - Genitourinary Genitourinary: Present: as per HPI - Musculoskeletal Musculoskeletal: Present: as per HPI - Neurological Neurological: Present: as per HPI - Psychiatric Psychiatric: Present: as per HPI - Endocrine Endocrine: Present: as per HPI - Hematologic/Lymphatic Hematologic/Lymphatic: Present: as per HPI Exam - Constitutional Vitals: Period Temp Pulse Resp BP Sys/Mendez Pulse Ox Last 24 Hr 97.2 F-98.8 F 57-82 18-24 105-162/44-85 90-99 General appearance: normal weight, no acute distress - Head Head exam: Present: normal inspection, normocephalic - Eye Eye exam: Present: other (lids and conjunctiva unremarkable). Absent: scleral icterus - ENT ENT exam: Present: normal exam, normal oropharynx - Neck Neck exam: Present: normal inspection - Respiratory Respiratory exam: Present: clear to auscultation bilaterally. Absent: rales, rhonchi, wheezes - Cardiovascular Cardiovascular exam: Present: regular rate and rhythm. Absent: diastolic murmur , JVD, systolic murmur - GI/Abdominal GI/Abdominal exam: Present: normal bowel sounds, soft. Absent: ascites, distended, mass, organomegaly, tenderness - Extremities Exam Extremities exam: Present: normal inspection, full ROM - Back Exam Back exam: Present: normal inspection - Neurological Exam Neurological exam: Present: alert, oriented X3 - Psychiatric Psychiatric exam: Present: normal affect, normal mood - Skin Skin exam: Present: normal color, warm, dry Results - Labs CBC & BMP: 11/01/16 04:46 11/01/16 04:46 Lab Results: I have reviewed the past 24 hour labs
[2016-11-01] MEDS: glipiZIDE 10 MG TABLET PO SCH ×2 (14:39→21:03)
--- NOTE | 2016-11-01 15:25 | Physician Query Form ---
CLICK EDIT DOCUMENT TO SELECT QUERY ANSWER --> OK --> SIGN Korin Bear RN Clinical Phytopathology Teacher W) [phone] (f) [phone] [email or web address]: Make your selection(s) from the choices in EACH section by typing an "x" and enter comments in the comment section. Please use your independent medical judgment in providing your response. This request does not imply that any particular answer is desired or expected. CLINICAL INDICATORS: (Providers should not edit this section) Based on documentation of "Acute renal insufficiency" Creatinine from 1.70 to 1.30. GFR from 32 to 41. Monitored with serial lab checks. Treated with NS infusion. Clarify which of the following most accurately represents the patient's renal status: ( ) Acute kidney injury (non-traumatic) ( ) Acute renal failure (x ) Acute renal failure with underlying Chronic Kidney Disease (CKD) - please provide stage below ( ) Acute renal failure with pathological renal lesion ( ) Acute renal failure with necrosis ( ) tubular ( ) medullary ( ) cortical ( ) CKD - please provide stage below ( ) End Stage Renal Disease ( ) Acute interstitial nephritis ( ) Hepatorenal syndrome ( ) Other, please specify: ( ) Clinically unable to determine Chronic Kidney Disease Stages Source: National Kidney Disease Foundation ( ) Stage I (eGFR > or = 90) ( ) Stage II (eGFR 60 - 89) ( x) Stage III (eGFR 30 - 59) ( ) Stage IV (eGFR 15 - 29) ( ) Stage V (eGFR < 15 or dialysis) COMMENTS: Use of terms such as suspected, likely, or probable (associated with a specific diagnosis that is being evaluated, monitored, or treated as if it exists) are acceptable and can be restated in the discharge summary if not ruled out. MTDD
[2016-11-01] MEDS: FOSINOPRIL 20 MG TABLET PO SCH (16:50)
[2016-11-01] MEDS: ACETAMINOPHEN 325 MG TABLET PO PRN (16:53)
[2016-11-01] MEDS: metFORMIN 500 MG TABLET PO SCH (16:54)
[2016-11-01] MEDS: ZALEPLON 5 MG CAPSULE PO SCH (21:02)
[2016-11-01] MEDS: cloNIDine 0.1 MG TABLET PO SCH (21:03)
[2016-11-01] MEDS: HYDROcodone/CHLORPHENIRAMINE ER 5 ML UDCUP PO PRN (21:13)
[2016-11-02] MEDS: ALBUTEROL/IPRATROPIUM 3 ML NEB RESP TX SCH ×4 (01:04→19:16)
[2016-11-02] MEDS: SODIUM CHLORIDE 0.9% 1,000 ML IV SCH ×2 (02:31→22:45)
[2016-11-02] MEDS: methylPREDNISolone SOD SUC 125 MG/2 ML VIAL IV SCH ×3 (02:41→16:41)
[2016-11-02 06:55] LABS: Basophils % 0.1 % (0.0-0.8); Hematocrit 28.9 VOL% (35.7-47.0); Immature Granulocytes % 2.3 %; Immature Granulocytes Absolute 0.25 #; Lymphocytes # 0.5 10*3/uL (1.4-4.0); Lymphocytes % 4.7 % (21.3-54.2); Mean Corpuscular HGB Conc 31.1 GM/DL (32-36); Mean Corpuscular Hemoglobin 29 PG (27-34); Mean Corpuscular Volume 91.7 FL (87-102); Mean Platelet Volume 11.1 FL (9.6-12.0); Monocytes # 0.3 10*3/uL (0.11-0.8); Monocytes % 2.5 % (1.7-12.7); Neutrophils # 9.7 10*3/uL (1.4-7.4); Neutrophils % 90.4 % (38.7-73.9); Platelet Count 315 T/CUMM (130-400); Red Blood Count 3.15 MC/CUMM (3.8-5.5); Red Cell Distribution Width 12.6 % (9.3-17.3); White Blood Count 10.8 T/CUMM (4-12)
[2016-11-02 07:17] LABS: Lymphocytes 3 % (20-55); Platelet Estimate Adequate; Segmented Neutrophils 93 % (50-85); Total Cells Counted 100
[2016-11-02 07:18] LABS: Burr Cells Slight; Elliptocytes Few; Hypochromasia 1+
[2016-11-02] MEDS: INSULIN LISPRO 100 UNIT/ML SUBCUT SCH ×4 (08:41→21:02)
--- NOTE | 2016-11-02 08:41 | Family Practice Progress Note ---
Family Practice - PN: Subj Interval history: Patient states that she feels better today. States that her cough is improved and she is breathing better overall. Still getting choked on some food substances. Consult to GI and will defer to their decisions about need for EGD. Chest x-ray is pending from this a.m.. Her lung bassett are clear to auscultation this a.m.. Will increase activity and possible discharge in a.m. if continues to improve Exam (Progress Note) - Constitutional Vitals: Period Temp Pulse Resp BP Sys/Mendez Pulse Ox Last 24 Hr 97.8 F-98.7 F 65-86 16-22 99-162/47-89 93-99 Results - Labs CBC & BMP: 11/02/16 06:29 11/01/16 04:46 Assessment and Plan (1) right lower lobe pneumonia Status: Acute Assessment and plan: We will admit for IV hydration and antibiotics Current Visit: Yes (2) Generalized weakness Status: Acute Assessment and plan: Probably multifactorial in nature. Will monitor closely consult physical therapy Current Visit: Yes (3) type 2 diabetes mellitus Status: Chronic Assessment and plan: Resume home medications and start on sliding scale Current Visit: No (4) renal insufficiency Status: Acute Assessment and plan: We will hydrate well and monitor. We'll repeat labs a.m. Current Visit: Yes (5) hyperlipidemia Status: Chronic Assessment and plan: Resume home medications Current Visit: Yes (6) hypertension Status: Chronic Assessment and plan: Resume home medications and monitor closely Current Visit: No (7) gastroesophageal reflux Status: Chronic Assessment and plan: Elevate head of bed resume home meds Current Visit: Yes
[2016-11-02] MEDS: LEVOFLOXACIN INJ 500 MG in PREMIX 1 EACH IV SCH (08:42)
[2016-11-02] MEDS: GEMFIBROZIL 600 MG TABLET PO SCH ×2 (08:43→21:01)
[2016-11-02] MEDS: ASPIRIN EC 81 MG TABLET PO SCH (08:43)
[2016-11-02] MEDS: glipiZIDE 10 MG TABLET PO SCH ×2 (08:43→21:01)
[2016-11-02] MEDS: PANTOPRAZOLE 40 MG TABLET PO SCH (08:43)
[2016-11-02] MEDS: GABAPENTIN 300 MG CAPSULE PO SCH ×2 (08:44→18:25)
[2016-11-02] MEDS: DICYCLOMINE 10 MG CAPSULE PO SCH ×2 (08:44→21:01)
[2016-11-02] MEDS: DOCUSATE SODIUM 100 MG CAPSULE PO SCH ×2 (08:44→21:01)
[2016-11-02] MEDS: ASCORBIC ACID 500 MG TABLET PO SCH (08:44)
[2016-11-02] MEDS: FERROUS SULFATE 325 MG TABLET PO SCH ×2 (08:45→21:01)
[2016-11-02] MEDS: hydroCHLOROthiazide 25 MG TABLET PO SCH (08:45)
--- NOTE | 2016-11-02 09:03 | XRay Report ---
Exam: Chest 2 views Date: November 02, 2016 at 8:55 AM Comparison: Chest 2 views October 30, 2016 Reason: Pneumonia Findings: The cardiac silhouette is normal in size. There are minimal opacities at both lung bases. This likely represents atelectasis and possibly pneumonia. Follow-up is recommended to confirm resolution. No pneumothorax is identified, but there is likely minimal left pleural fluid. The lungs are also hyperexpanded, which can be seen in COPD. No acute osseous process is identified. Impression: There has been no significant change. PROCEDURE INTERPRETED AT [facility] Final Report Signed by: Dr. Felisha Wu
--- NOTE | 2016-11-02 09:49 | Gastrointestinal Progress Note ---
Assessment and Plan (1) Dysphagia Status: Acute Assessment and plan: 11/02-continue reports of dysphagia. Patient reports improved breathing. Chest x-ray noted with no change. For possible discharge home tomorrow. Tentatively plan for EGD tomorrow morning pending respiratory status. Plan an addendum to followed by Dr. Prasad 11/01-History of dysphagia with reported dilations in past. Recent worsening of difficulty with early satiety, difficulty with some solids and pills and regurgitation. Obtain [facility] records. Plan and addendum to follow by Dr Prasad. Current Visit: Yes Gastroenterology - PN: Subj Interval history: CC: Dysphagia Patient is seen awake and alert sitting up in bed. Physical therapy at bedside. Patient states she is feeling much stronger today. Denies any abdominal pain, nausea or vomiting. States she feels like she is breathing a little better as well. She does complain of continued sensation of food becoming lodged in her throat as she is eating. Chest x-ray this morning shows no significant change however patient clinically appears to be doing better. WBC unremarkable, afebrile. Patient is noted for possible discharge home tomorrow. If patient's respiratory status continues to improve could tentatively plan EGD for tomorrow prior to discharge. Abdomen is soft, nontender. ROS: Denies shortness of breath or chest pain Exam (Progress Note) - Constitutional Vitals: Period Temp Pulse Resp BP Sys/Mendez Pulse Ox Last 24 Hr 97.8 F-98.7 F 65-86 16-22 99-162/47-89 93-99 General appearance: normal weight, no acute distress - Head Head exam: Present: normal inspection, normocephalic - Eye Eye exam: Present: other (Lids and conjunctivae unremarkable). Absent: scleral icterus - ENT ENT exam: Present: normal exam, normal oropharynx - Neck Neck exam: Present: normal inspection - Respiratory Respiratory exam: Present: clear to auscultation bilaterally. Absent: rales, rhonchi, wheezes - Cardiovascular Cardiovascular exam: Present: regular rate and rhythm. Absent: diastolic murmur , JVD, systolic murmur - GI/Abdominal GI/Abdominal exam: Present: normal bowel sounds, soft. Absent: ascites, distended, mass, organomegaly, tenderness - Extremities Exam Extremities exam: Present: normal inspection, full ROM - Back Exam Back exam: Present: normal inspection - Neurological Exam Neurological exam: Present: alert, oriented X3 - Psychiatric Psychiatric exam: Present: normal affect, normal mood - Skin Skin exam: Present: normal color, warm, dry Results - Labs CBC & BMP: 11/02/16 06:29 11/01/16 04:46 Lab Results: I have reviewed the past 24 hour labs - Diagnostic Findings Procedure: Chest x-ray: report reviewed by me
[2016-11-02] MEDS: POLYETHYLENE GLYCOL POWDER 17 GM PACK PO SCH (11:07)
[2016-11-02] MEDS: ACETAMINOPHEN 325 MG TABLET PO PRN ×2 (14:18→20:01)
[2016-11-02] MEDS: metFORMIN 500 MG TABLET PO SCH (16:43)
[2016-11-02] MEDS: FOSINOPRIL 20 MG TABLET PO SCH (16:47)
[2016-11-02] MEDS: ZALEPLON 5 MG CAPSULE PO SCH (21:01)
[2016-11-02] MEDS: cloNIDine 0.1 MG TABLET PO SCH (21:01)
[2016-11-02] MEDS: HYDROcodone/CHLORPHENIRAMINE ER 5 ML UDCUP PO PRN (21:02)
[2016-11-02] MEDS: FLUTICASONE/SALMETEROL 250-50 DISKUS 14 DOSE INH SCH ×2 (21:12→22:55)
[2016-11-03] MEDS: ALBUTEROL/IPRATROPIUM 3 ML NEB RESP TX SCH ×4 (00:12→18:49)
[2016-11-03] MEDS: methylPREDNISolone SOD SUC 125 MG/2 ML VIAL IV SCH ×3 (02:20→17:54)
[2016-11-03 06:08] LABS: Basophils % 0.1 % (0.0-0.8); Hematocrit 26.5 VOL% (35.7-47.0); Hemoglobin 8.5 GM/DL (12.0-16.0); Immature Granulocytes % 1.5 %; Lymphocytes # 0.5 10*3/uL (1.4-4.0); Lymphocytes % 3.9 % (21.3-54.2); Mean Corpuscular HGB Conc 32.1 GM/DL (32-36); Mean Corpuscular Hemoglobin 29 PG (27-34); Mean Corpuscular Volume 89.8 FL (87-102); Mean Platelet Volume 11.2 FL (9.6-12.0); Monocytes # 0.5 10*3/uL (0.11-0.8); Monocytes % 3.6 % (1.7-12.7); Neutrophils # 12.5 10*3/uL (1.4-7.4); Neutrophils % 90.9 % (38.7-73.9); Platelet Count 342 T/CUMM (130-400); Red Blood Count 2.95 MC/CUMM (3.8-5.5); Red Cell Distribution Width 12.9 % (9.3-17.3); White Blood Count 13.8 T/CUMM (4-12)
[2016-11-03 06:32] LABS: Osmolality,Calculated 290.3 MOS/KG (273-304); Potassium 5.2 MMOL/L (3.5-5.1)
[2016-11-03 06:57] LABS: Band Neutrophils 1 % (0-10); Lymphocytes 3 % (20-55); Segmented Neutrophils 95 % (50-85); Total Cells Counted 100
[2016-11-03 06:58] LABS: Hypochromasia 1+; Platelet Estimate Adequate
[2016-11-03] MEDS ORDERED: FUROSEMIDE 20 MG/2 ML VIAL IV ONE (09:00)
[2016-11-03] MEDS ORDERED: LIDOCAINE 2% 5 ML VIAL ONE (13:19)
[2016-11-03] MEDS ORDERED: PROPOFOL 200 MG/20 ML VIAL IV ONE (13:19)
--- NOTE | 2016-11-03 13:26 | History and Physical Update ---
History and Physical Update - History and Physical H&P was reviewed, the patient examined and there: are no changes in the patients condition since last H&P was completed. - Physical Exam Mental Status: alert and oriented Heart: regular rate and rhythm Lung: clear to auscultation Abdomen: within normal limits Vitals: within normal limits
--- NOTE | 2016-11-03 13:29 | Operative Note ---
Date of procedure: 11/03/16 Pre-op diagnosis: dysphagia Procedure: Procedure: Esophagogastroduodenoscopy with bougie dilation esophagus Brief clinical abstract: 81-year-old female has had recent dysphagia to solids. Her weight stable. Indication for procedure: Dysphagia Endoscopic findings:[After informed consent was obtained, the patient was placed in the left lateral decubitus position. The gastroscope was inserted in the upper esophagus under direct vision with no resistance encountered. Esophageal mucosa appeared normal down to the squamocolumnar junction. There was a mildly obstructive fibrous appearing stricture at that level consistent with reflux etiology. A small hiatal hernia was present just distal to this. The endoscope was advanced in the stomach which was carefully examined including retroflexed view of the cardia and fundus with no other abnormality seen. The pyloric channel, duodenal bulb, second and third portion of the duodenum were normal. The endoscope was withdrawn and Llanos dilator size 54 Hungarian was inserted in the upper esophagus and advanced to the level of the GE junction with mild resistance encountered. No blood was noted on the dilator afterwards and she had no chest pain. She appeared to tolerate the procedure well. Impression: #1 distal esophageal stricture secondary to GERD-status post bougie dilation #2 small hiatal hernia Recommendations: Continue PPI therapy. Relate as needed for dysphagia symptoms. Anesthesia: MAC Surgeon / Physician: Pramod Prasad Estimated blood loss: none Specimens: none sent Condition: stable Disposition: post procedure unit Results - Labs CBC & BMP: 11/03/16 05:10 11/03/16 05:10 Discharge Plan - Discharge Medications No Action Saccharomyces Boulardii [Probiotic] 250 mg PO DAILY Ascorbic Acid [Vitamin C] 500 mg PO DAILY Omeprazole 40 mg PO QAM Dicyclomine Cap/Tab [Bentyl Cap/Tab] 10 mg PO BID Aspirin [Ecotrin] 81 mg PO DAILY Polyethylene Glycol Powder [Miralax] 17 gm PO QPM NIFEdipine XL TAB [Procardia Xl] 60 mg PO DAILY hydroCHLOROthiazide [Hydrochlorothiazide] 25 mg PO DAILY glipiZIDE [Glipizide] 10 mg PO BID Gemfibrozil 600 mg PO BID Gabapentin Cap/Tab [Neurontin Cap/Tab] 300 mg PO QAM Fosinopril [Monopril] 20 mg PO DAILY W/SUPPER Ferrous Sulfate 325 mg PO BID Albuterol Neb [Proventil Neb] 2.5 mg RESP TX RT Q8H #90 nebulization solution Gabapentin 300 mg PO QPM Metformin HCl [Metformin HCl ER] 750 mg PO DAILY W/BREAKFAST Levofloxacin Tab [Levaquin Tab] 500 mg PO DAILY #7 tablet Ondansetron [Ondansetron Odt] 4 mg PO Q4H PRN #10 tab.rapdis PRN Reason: Nausea metFORMIN [Glucophage] 500 mg PO DAILY W/SUPPER - Follow Up or Referral - Forms/Instructions
--- NOTE | 2016-11-03 14:36 | Anesthesia ---
Anesthesia Post OP - Post Ansesthetic Evaluation Patient seen in post op: Yes Resp: within normal limits CV: within normal limits Mental: within normal limits Temp: within normal limits [id number]: within normal limits Nausea and Vomiting: within normal limits Pain: within normal limits
[2016-11-03] MEDS: ASCORBIC ACID 500 MG TABLET PO SCH (15:11)
[2016-11-03] MEDS: FERROUS SULFATE 325 MG TABLET PO SCH ×2 (15:11→21:01)
[2016-11-03] MEDS: GABAPENTIN 300 MG CAPSULE PO SCH ×2 (15:12→18:01)
[2016-11-03] MEDS: FLUTICASONE/SALMETEROL 250-50 DISKUS 14 DOSE INH SCH ×2 (15:12→21:38)
[2016-11-03] MEDS: PANTOPRAZOLE 40 MG TABLET PO SCH (15:12)
[2016-11-03] MEDS: DOCUSATE SODIUM 100 MG CAPSULE PO SCH ×2 (15:12→21:01)
[2016-11-03] MEDS: DICYCLOMINE 10 MG CAPSULE PO SCH ×2 (15:12→21:01)
[2016-11-03] MEDS: ASPIRIN EC 81 MG TABLET PO SCH (15:12)
[2016-11-03] MEDS: hydroCHLOROthiazide 25 MG TABLET PO SCH (15:12)
[2016-11-03] MEDS: POLYETHYLENE GLYCOL POWDER 17 GM PACK PO SCH (15:13)
[2016-11-03] MEDS: GEMFIBROZIL 600 MG TABLET PO SCH ×2 (15:14→21:01)
[2016-11-03] MEDS: INSULIN LISPRO 100 UNIT/ML SUBCUT SCH ×4 (15:15→21:02)
[2016-11-03] MEDS: LEVOFLOXACIN INJ 500 MG in PREMIX 1 EACH IV SCH (15:15)
[2016-11-03] MEDS: glipiZIDE 10 MG TABLET PO SCH ×2 (15:17→21:01)
[2016-11-03] MEDS: FOSINOPRIL 20 MG TABLET PO SCH (17:54)
[2016-11-03] MEDS: SODIUM CHLORIDE 0.9% 1,000 ML IV SCH (17:55)
[2016-11-03] MEDS: metFORMIN 500 MG TABLET PO SCH (17:58)
--- NOTE | 2016-11-03 19:01 | Family Practice Progress Note ---
Family Practice - PN: Subj Interval history: Patient is somewhat lethargic following EGD this a.m.. Patient was noted to have a distal esophageal stricture which was dilated. Patient tolerated procedure well with no competitions. Overall she has continued to improve. Her lung bassett are clear to auscultation this p.m. She has not ambulated much today because of the sedation from the EGD. We'll monitor overnight and increased activity in a.m.. Hopefully can discharge in a.m. if patient doing well Exam (Progress Note) - Constitutional Vitals: Period Temp Pulse Resp BP Sys/Mendez Pulse Ox Last 24 Hr 98.1 F-100.1 F 65-87 16-24 126-167/57-76 88-99 Results - Labs CBC & BMP: 11/03/16 05:10 11/03/16 05:10 Assessment and Plan (1) right lower lobe pneumonia Status: Acute Assessment and plan: We will admit for IV hydration and antibiotics Current Visit: Yes (2) Generalized weakness Status: Acute Assessment and plan: Probably multifactorial in nature. Will monitor closely consult physical therapy Current Visit: Yes (3) type 2 diabetes mellitus Status: Chronic Assessment and plan: Resume home medications and start on sliding scale Current Visit: No (4) renal insufficiency Status: Acute Assessment and plan: We will hydrate well and monitor. We'll repeat labs a.m. Current Visit: Yes (5) hyperlipidemia Status: Chronic Assessment and plan: Resume home medications Current Visit: Yes (6) hypertension Status: Chronic Assessment and plan: Resume home medications and monitor closely Current Visit: No (7) gastroesophageal reflux Status: Chronic Assessment and plan: Elevate head of bed resume home meds Current Visit: Yes
[2016-11-03] MEDS ORDERED: GABAPENTIN 300 MG CAPSULE PO SCH (21:00)
[2016-11-03] MEDS: ZALEPLON 5 MG CAPSULE PO SCH (21:01)
[2016-11-03] MEDS: cloNIDine 0.1 MG TABLET PO SCH (21:01)
[2016-11-04] MEDS: ALBUTEROL/IPRATROPIUM 3 ML NEB RESP TX SCH ×2 (00:08→08:03)
[2016-11-04] MEDS: methylPREDNISolone SOD SUC 125 MG/2 ML VIAL IV SCH ×2 (00:26→08:08)
[2016-11-04 07:35] LABS: Hematocrit 31.7 VOL% (35.7-47.0); Hemoglobin 9.8 GM/DL (12.0-16.0); Immature Granulocytes % 1.7 %; Immature Granulocytes Absolute 0.21 #; Lymphocytes # 0.6 10*3/uL (1.4-4.0); Lymphocytes % 4.7 % (21.3-54.2); Mean Corpuscular HGB Conc 30.9 GM/DL (32-36); Mean Corpuscular Hemoglobin 28 PG (27-34); Mean Corpuscular Volume 91.6 FL (87-102); Mean Platelet Volume 10.8 FL (9.6-12.0); Monocytes # 0.5 10*3/uL (0.11-0.8); Monocytes % 3.7 % (1.7-12.7); Neutrophils # 11.3 10*3/uL (1.4-7.4); Neutrophils % 89.9 % (38.7-73.9); Platelet Count 436 T/CUMM (130-400); Red Blood Count 3.46 MC/CUMM (3.8-5.5); Red Cell Distribution Width 12.9 % (9.3-17.3); White Blood Count 12.5 T/CUMM (4-12)
[2016-11-04 07:59] LABS: Band Neutrophils 2 % (0-10); Hypochromasia 1+; Lymphocytes 4 % (20-55); Microcytosis 1+; Platelet Estimate Increased; Segmented Neutrophils 91 % (50-85); Total Cells Counted 100
[2016-11-04 08:06] LABS: Albumin 3.2 G/DL (3.4-5.0); Calcium 9.2 MG/DL (8.5-10.1); Potassium 4.7 MMOL/L (3.5-5.1); Total Protein 5.9 G/DL (6.4-8.3)
[2016-11-04] MEDS: INSULIN LISPRO 100 UNIT/ML SUBCUT SCH (08:07)
[2016-11-04] MEDS: POLYETHYLENE GLYCOL POWDER 17 GM PACK PO SCH (08:08)
[2016-11-04] MEDS: GEMFIBROZIL 600 MG TABLET PO SCH (08:11)
[2016-11-04] MEDS: ASCORBIC ACID 500 MG TABLET PO SCH (08:11)
[2016-11-04] MEDS: DICYCLOMINE 10 MG CAPSULE PO SCH (08:11)
[2016-11-04] MEDS: PANTOPRAZOLE 40 MG TABLET PO SCH (08:11)
[2016-11-04] MEDS: glipiZIDE 10 MG TABLET PO SCH (08:11)
[2016-11-04] MEDS: FERROUS SULFATE 325 MG TABLET PO SCH (08:11)
[2016-11-04] MEDS: hydroCHLOROthiazide 25 MG TABLET PO SCH (08:11)
[2016-11-04] MEDS: DOCUSATE SODIUM 100 MG CAPSULE PO SCH (08:12)
[2016-11-04] MEDS: ASPIRIN EC 81 MG TABLET PO SCH (08:13)
[2016-11-04] MEDS: LEVOFLOXACIN INJ 500 MG in PREMIX 1 EACH IV SCH (08:13)
--- NOTE | 2016-11-04 08:14 | Discharge Summary ---
Hospital Course - Hospital Course Hospital Course: History of present illness: Ms. Goldstein is a 81 year old female Patient is an 81-year-old white female who was brought to emergency room by ambulance after she became extremely weak at home. Patient was seen in the emergency room on Tuesday and diagnosed as having a right lower lobe pneumonia. She had been having this nausea vomiting and became extremely weak. She apparently had fallen several times at home. She progressively became weaker. She was brought to the emergency room by ambulance where she was admitted for further evaluation and therapy. Diagnosis - Discharge Diagnosis (1) right lower lobe pneumonia Status: Acute (2) Generalized weakness Status: Acute (3) type 2 diabetes mellitus Status: Chronic (4) renal insufficiency Status: Acute (5) hyperlipidemia Status: Chronic (6) hypertension Status: Chronic (7) gastroesophageal reflux Status: Chronic Discharge Plan - Discharge Data Disposition: Disch To Home/Self Care Condition at Discharge: Stable Discharge Diet: diabetic diet Activity: ambulate only with your walker Weight Bearing at Discharge: weight bear as tolerated Contact your physician if you experience:: fever over 101, Shortness of breath - Discharge Medications Continue Saccharomyces Boulardii [Probiotic] 250 mg PO DAILY Ascorbic Acid [Vitamin C] 500 mg PO DAILY Omeprazole 40 mg PO QAM Dicyclomine Cap/Tab [Bentyl Cap/Tab] 10 mg PO BID Aspirin [Ecotrin] 81 mg PO DAILY Polyethylene Glycol Powder [Miralax] 17 gm PO QPM NIFEdipine XL TAB [Procardia Xl] 60 mg PO DAILY hydroCHLOROthiazide [Hydrochlorothiazide] 25 mg PO DAILY glipiZIDE [Glipizide] 10 mg PO BID Gemfibrozil 600 mg PO BID Gabapentin Cap/Tab [Neurontin Cap/Tab] 600 mg PO QAM Fosinopril [Monopril] 20 mg PO DAILY W/SUPPER Ferrous Sulfate 325 mg PO BID Albuterol Neb [Proventil Neb] 2.5 mg RESP TX RT Q8H #90 nebulization solution Gabapentin 600 mg PO BEDTIME Metformin HCl [Metformin HCl ER] 750 mg PO DAILY W/BREAKFAST Levofloxacin Tab [Levaquin Tab] 500 mg PO DAILY #7 tablet Ondansetron [Ondansetron Odt] 4 mg PO Q4H PRN #10 tab.rapdis PRN Reason: Nausea metFORMIN [Glucophage] 500 mg PO DAILY W/SUPPER - Follow Up or Referral Follow Up: Rush Davis DO [Physician] - - Forms/Instructions Exam - Constitutional Vitals: Period Temp Pulse Resp BP Sys/Mendez Pulse Ox Last 24 Hr 98.1 F-99.4 F 64-79 18-24 110-167/54-76 88-99 Discharge Results Labs on day of discharge: Labs from last 24 hours 11/04/16 11/04/16 11/04/16 07:50 07:21 07:21 WBC 12.5 H RBC 3.46 L Hgb 9.8 L Hct 31.7 L MCV 91.6 MCH 28 MCHC 30.9 L RDW 12.9 Plt Count 436 H D MPV 10.8 Neut % (Auto) 89.9 H Lymph % (Auto) 4.7 L Cottle % (Auto) 3.7 Eos % (Auto) 0.0 Baso % (Auto) 0.0 Neut # (Auto) 11.3 H Lymph # (Auto) 0.6 L [place] # (Auto) 0.5 Eos # (Auto) 0.0 Baso # (Auto) 0.0 Total Counted 100 Immature Gran % 1.7 Nucleated RBC % 0.0 Immature Gran # 0.21 Segmented Neutrophils 91 H Band Neutrophils 2 Lymphocytes 4 L Monocytes 3 Nucleated RBCs # 0.00 Platelet Estimate Increased Hypochromasia 1+ Microcytosis 1+ Morphology Comment Sodium 143 Potassium 4.7 Chloride 105 Carbon Dioxide 27 Anion Gap 15.7 H BUN 35 H Creatinine 1.60 H GFR Calculation 32 BUN/Creatinine Ratio 21.00 H Glucose 242 H POC Glucose 259 H Calculated Osmolality 300.0 Calcium 9.2 Total Bilirubin 1.00 AST 8 ALT 17 Alkaline Phosphatase 70 Total Protein 5.9 L Albumin 3.2 L Globulin 2.7 Albumin/Globulin Ratio 1.1 11/03/16 11/03/16 11/03/16 19:19 17:34 15:09 WBC RBC Hgb Hct MCV MCH MCHC RDW Plt Count MPV Neut % (Auto) Lymph % (Auto) Cottle % (Auto) Eos % (Auto) Baso % (Auto) Neut # (Auto) Lymph # (Auto) Cottle # (Auto) Eos # (Auto) Baso # (Auto) Total Counted Immature Gran % Nucleated RBC % Immature Gran # Segmented Neutrophils Band Neutrophils Lymphocytes Monocytes Nucleated RBCs # Platelet Estimate Hypochromasia Microcytosis Morphology Comment Sodium Potassium Chloride Carbon Dioxide Anion Gap BUN Creatinine GFR Calculation BUN/Creatinine Ratio Glucose POC Glucose 204 H 180 H 110 H Calculated Osmolality Calcium Total Bilirubin AST ALT Alkaline Phosphatase Total Protein Albumin Globulin Albumin/Globulin Ratio 11/03/16 11/03/16 11:29 08:06 WBC RBC Hgb Hct MCV MCH MCHC RDW Plt Count MPV Neut % (Auto) Lymph % (Auto) Cott[place] % (Auto) Eos % (Auto) Baso % (Auto) Neut # (Auto) Lymph # (Auto) Cottle # (Auto) Eos # (Auto) Baso # (Auto) Total Counted Immature Gran % Nucleated RBC % Immature Gran # Segmented Neutrophils Band Neutrophils Lymphocytes Monocytes Nucleated RBCs # Platelet Estimate Hypochromasia Microcytosis Morphology Comment Sodium Potassium Chloride Carbon Dioxide Anion Gap BUN Creatinine GFR Calculation BUN/Creatinine Ratio Glucose POC Glucose 207 H 218 H Calculated Osmolality Calcium Total Bilirubin AST ALT Alkaline Phosphatase Total Protein Albumin Globulin Albumin/Globulin Ratio DS: Provider Date of admission: 10/27/16 11:49 Ms. Goldstein is a 81 year old female Patient is an 81-year-old white female who was brought to emergency room by ambulance after she became extremely weak at home. Patient was seen in the emergency room on Tuesday and diagnosed as having a right lower lobe pneumonia. She had been having this nausea vomiting and became extremely weak. She apparently had fallen several times at home. She progressively became weaker. She was brought to the emergency room by ambulance where she was admitted for further evaluation and therapy. Primary care physician: . No PCP Attending physician on admission: Rush Davis DO Consults: 10/27/16 14:29 Consult to Case Mgmt/Social Srvs [CONS] Routine Reason for Case Mgmt/Social Srvs: Discharge Planning 10/28/16 07:59 Consult to Physical Therapy [CONS] Routine Reason for Physical Therapy: Ambulation Start Therapy: Today Consult Comment: Please assist with ambulation and strength 10/31/16 12:22 Consult to Physician [CONS] Routine Comment: Consulting Provider: Pramod Prasad When should Consulting Provider be notified: In am Discharging clinician: Rush Davis DO
[2016-11-04] MEDS ORDERED: GABAPENTIN 600 MG TABLET PO SCH (09:00)
[2016-11-04] MEDS: FLUTICASONE/SALMETEROL 250-50 DISKUS 14 DOSE INH SCH (10:57)
[2016-11-04 13:12] VITALS: BP 150/89
[2016-11-05] MEDS ORDERED: AZITHROMYCIN 250 MG TABLET PO SCH (09:00)
== END 2016-11-04 12:30 | DRG 194 ==
LOC: EDBD → EDUNIT# → N.ED 11:27 → N.EDINP 11:49 → N.2E 14:28
PROVIDERS: ADMIT Family Medicine; ATTEND Family Medicine

== ENCOUNTER 2017-02-10 10:21 | Inpatient (IN) ==
[2017-02-10] MEDS ORDERED: SODIUM CHLORIDE 0.9% 1,000 ML IV STA (10:50)
[2017-02-10 11:00] LABS: Basophils # 0.1 10*3/uL (0.0-0.2); Basophils % 0.3 % (0.0-0.8); Eosinophils # 0.1 10*3/uL (0.0-0.87); Eosinophils % 0.3 % (0.00-10.9); Hemoglobin 13.8 GM/DL (12.0-16.0); Immature Granulocytes % 0.3 %; Immature Granulocytes Absolute 0.05 #; Lymphocytes # 0.4 10*3/uL (1.4-4.0); Lymphocytes % 2.3 % (21.3-54.2); Mean Corpuscular HGB Conc 32.9 GM/DL (32-36); Mean Corpuscular Hemoglobin 29 PG (27-34); Mean Platelet Volume 11.4 FL (9.6-12.0); Monocytes # 1.1 10*3/uL (0.11-0.8); Monocytes % 6.1 % (1.7-12.7); Neutrophils # 15.6 10*3/uL (1.4-7.4); Neutrophils % 90.7 % (38.7-73.9); Platelet Count 314 T/CUMM (130-400); Red Blood Count 4.83 MC/CUMM (3.8-5.5); Red Cell Distribution Width 13.4 % (9.3-17.3); White Blood Count 17.3 T/CUMM (4-12)
[2017-02-10 11:32] LABS: Apearance,Urine Slightly Hazy (Clear); Bilirubin,Urine Negative (Negative); Blood, Urine Negative (Negative); Glucose,Urine (UA) Negative (Negative); Ketones,Urine Negative (Negative); Mucus,Urine Occasional /LPF (Occasional); Nitrite,Urine Negative (Negative); Protein,Urine 100 MG/DL; Squamous Epithelial Cell,Urine Occasional /HPF (0-10); Urine Color Yellow (Yellow); Urine Specific Gravity 1.014 (1.001-1.035); Urine Urobilinogen < 2.0 EU/DL (0.2-1.0)
[2017-02-10 11:33] LABS: Alanine Aminotransferase 15 U/L (13-56); Albumin 3.7 G/DL (3.4-5.0); Alkaline Phosphatase 80 U/L (45-117); Aspartate Amino Transferase 12 U/L (0-37); Bilirubin,Total < 0.39 MG/DL (0.2-1.0); Blood Urea Nitrogen 43 MG/DL (7-18); Calcium 9.1 MG/DL (8.5-10.1); Glucose 241 MG/DL (74-106); Osmolality,Calculated 299.3 MOS/KG (273-304); Sodium 141 MMOL/L (136-145); Total Protein 6.5 G/DL (6.4-8.3)
--- NOTE | 2017-02-10 12:10 | Ultrasound Report ---
US gallbladder Indication: Abdominal pain with nausea and vomiting. ULTRASOUND ABDOMEN, limited Comparison: 10/25/2016 Findings: Liver: Unremarkable Gallbladder: No stones or sludge. Negative sonographic Cross sign. Common bile duct: 5 mm Pancreas: Tail obscured by bowel gas. Head and body are unremarkable. Right kidney: 10.6 cm length. No solid mass, calcification or obstruction. There are 2 cysts present, one is slightly complex with a thin internal septation. This complex cyst is also the largest measuring 29 x 27 x 17 mm located at the lower pole. This more complex cyst was not seen on the previous exam. Impression: No acute intra-abdominal pathology. Slightly complex right renal cyst now present at the lower pole, not seen previously. Consider 12 month follow-up ultrasound. PROCEDURE INTERPRETED AT [facility] DEPARTMENT OF RADIOLOGY Final Report Signed by: Corbin Corona M.D.
--- NOTE | 2017-02-10 12:33 | Emergency Department Note ---
Coni Davis Hilary, am scribing for, and in the presence of, Jono Harris MD 10:51. Kimberly Davis Phillip K, MD, personally performed the services described in this documentation, ascribed by Lisa Newberry in my presence, and it is both accurate and complete 232 . Arrival - Arrival Chief Complaint: Nausea/Vomiting/Diarrhea Stated Complaint: low blood pressure vomiting ED Nursing Triage Note: Pain all over with generalized weakness - pt states that she has been having some n/v/d onset this am - pt was sent from Dr Woods office for evaulation Mode of Arrival: Wheelchair Limitations: No Limitations Source: Patient, RN Notes Reviewed - History of Present Illness HPI Narrative: Pt is a 81 y/o female presenting to the ED with c/o nausea and vomiting which onset around 0500. She confirms weakness, nausea, vomiting, pain in middle and right side abdominal pain, eye pain, and fever but denies chest pain. Pt has a PMHx of IBS and believes this could be the cause. No other complaints or problems stated in the ED. Onset (ago): hour(s) Consistency: constant Severity: mild Severity scale (1-10): 1 Allergies/Adverse Reactions: Allergies Allergy/AdvReac Type Severity Reaction Status Date / Time Iodinated Contrast Media - Allergy SHORTNESS Verified 03/18/16 17:28 Oral and OF BREATH [Iodinated Contrast Media - IV Dye] Amoxicillin [From Augmentin] AdvReac Vomiting Verified 03/18/16 17:28 clavulanic acid AdvReac Vomiting Verified 03/18/16 17:28 [From Augmentin] Home Medications: Home Medications Medication Instructions Recorded Confirmed Type Ascorbic Acid [Vitamin C] 500 mg PO DAILY 03/18/16 02/10/17 History Aspirin [Ecotrin] 81 mg PO DAILY 03/18/16 02/10/17 History Dicyclomine Cap/Tab [Bentyl 10 mg PO BID 03/18/16 02/10/17 History Cap/Tab] Ferrous Sulfate 325 mg PO BID 03/18/16 02/10/17 History Fosinopril [Monopril] 20 mg PO DAILY W/SUPPER 03/18/16 02/10/17 History Gemfibrozil 600 mg PO BID 03/18/16 02/10/17 History NIFEdipine XL TAB [Procardia Xl] 60 mg PO DAILY 03/18/16 02/10/17 History Omeprazole 40 mg PO QAM 03/18/16 02/10/17 History Polyethylene Glycol Powder 17 gm PO QPM 03/18/16 02/10/17 History [Miralax] glipiZIDE [Glipizide] 10 mg PO BID 03/18/16 02/10/17 History hydroCHLOROthiazide 25 mg PO DAILY 03/18/16 02/10/17 History [Hydrochlorothiazide] Gabapentin 600 mg PO BEDTIME 10/25/16 02/10/17 History Metformin HCl [Metformin HCl ER] 750 mg PO DAILY W/BREAKFAST 10/25/16 02/10/17 History metFORMIN [Glucophage] 500 mg PO DAILY W/SUPPER 10/25/16 02/10/17 History Albuterol Neb [Proventil Neb] 2.5 mg RESP TX RT Q8H PRN 02/10/17 02/10/17 History Ascorbic Acid Tab [Vitamin C Tab] 500 mg PO DAILY 02/10/17 02/10/17 History Fluticasone/Salmeterol 250-50 1 puff INH BID 02/10/17 02/10/17 History [Advair 250-50] Gabapentin 300 mg PO QAM 02/10/17 02/10/17 History Lactobacillus Combo No.6 1 each PO DAILY 02/10/17 02/10/17 History [Probiotic Complex] Review of System - Review of System 12 point system: reviewed and no additional remarkable complaints except as stated - Review of System Constitutional: Present: fever (subjective), weakness Gastrointestinal: Present: abdominal pain, nausea, vomiting Neurological: Present: weakness Medical,Surgical,& Family Hx - Medical History Neurology: History of: Peripheral Neuropathy HEENT: History of: Dental Problems Endocrine: History of: Dyslipidemia Respiratory: History of: Asthma, Bronchitis, Pneumonia Genitourinary: History of: Recurring Urinary Tract Infections Gastrointestinal: History of: GERD, Gastrointestinal Bleed Musculoskeletal: History of: Back/Neck Problems, Musculoskeletal Problems ( Arthritis) Hematology: History of: Anemia - Surgical History HEENT Surgeries: Surgical HX of: Eye Surgery (Cataracts), Tonsilectomy & Adenoidectomy Abdominal Surgeries: Surgical HX of: Appendectomy Reproductive Surgeries: Surgical HX of;: Genitourinary Surgery (bladder suspension) Orthopedic Surgeries: Surgical HX of;: Total Hip Replacement, Total Knee Replacement - Family History Family History: Reports;: Family Cancer (2 Sister, 1 brother), Family Diabetes ( mother, 2 sisters, 1 brother), Family Heart Disease (1 sister), Family Hypertension (mother, father,), Family Stroke (father) Denies;: Family Anesthesia Reaction, Family Psychiatric Problems - Social History Smoking Status: Never smoker Frequency of Alcohol Use: None Type of Drug Use: None Exam Vital Signs: Vital Signs Temperature 98.1 F 02/10/17 10:40 Pulse Rate 72 02/10/17 10:52 Respiratory Rate 28 H 02/10/17 10:52 Blood Pressure 123/39 02/10/17 10:52 O2 Sat by Pulse Oximetry 99 02/10/17 10:52 - General General appearance: alert, in no apparent distress - Head Head exam: Present: atraumatic, normocephalic - Eye Eye exam: Present: normal appearance, PERRL, EOMI - ENT ENT exam: Present: mucous membranes moist, TM's normal bilaterally. Absent: mucous membranes dry - Neck Neck exam: Present: full ROM, trachea midline. Absent: tenderness - Chest Chest inspection: Present: symmetric chest wall rise. Absent: tenderness - Respiratory Respiratory exam: Present: normal lung sounds bilaterally. Absent: respiratory distress - Cardiovascular Cardiovascular exam: Present: regular rate, normal rhythm, normal heart sounds, murmur (2/6 systolic ejection ) - Abdominal Exam Abdominal exam: Present: soft, tenderness (diffused around RUQ), normal bowel sounds. Absent: distention - Extremities Exam Extremities exam: Present: full ROM. Absent: tenderness - Back Exam Back exam: Present: full ROM, CVA tenderness (R), CVA tenderness (L). Absent: tenderness - Neurological Exam Neurological exam: Present: alert, oriented X3, CN II-XII intact. Absent: motor sensory deficit - Psychiatric Psychiatric exam: Present: normal affect, normal mood - Skin Skin exam: Present: warm, dry, intact, normal color. Absent: rash Course Course Narrative: On subsequent exam patient does have tenderness in the left lower quadrant also and has a history of diverticulitis. We will obtain a CT abdomen to rule out diverticulitis. Patient discussed with Dr. Davis. Will admit for IV antibiotics. Results - Labs CBC & BMP: 02/10/17 10:51 02/10/17 10:51 Lab Results: I have reviewed the patients labs Labs: Laboratory Tests 02/10/17 10:51 WBC 17.3 H RBC 4.83 Hgb 13.8 Hct 42.0 Plt Count 314 Neut % (Auto) 90.7 H Lymph % (Auto) 2.3 L Neut # (Auto) 15.6 H Lymph # (Auto) 0.4 L [place] # (Auto) 1.1 H Laboratory Tests 02/10/17 02/10/17 10:51 11:20 Sodium 141 Potassium 4.0 Chloride 104 Carbon Dioxide 24 Anion Gap 17.0 H BUN 43 H Creatinine 2.20 H Glucose 241 H POC Glucose 226 H Total Protein 6.5 Laboratory Tests 02/10/17 02/10/17 02/10/17 10:50 10:51 12:44 Total Counted 100 Segmented Neutrophils 74 Band Neutrophils 15 H Lymphocytes 6 L Monocytes 4 Eosinophils 1 Platelet Estimate Adequate Hypochromasia Slight Lactic Acid 1.7 Urine pH 5.0 Ur Specific [place] 1.014 Urine Protein 100 Urine Urobilinogen < 2.0 H Urine Leukocytes Trace - Diagnostic Findings Procedure: CT Abdomen and Pelvis: report reviewed by me (1. Findings compatible with right lower lobe pneumonia. 2. Colonic diverticulosis is present without evidence of diverticulitis. 3. Complex right renal cyst with internal calcification or septal calcification as differential considerations including cyst renal cell carcinoma 4. Mild hepatomegaly is of uncertain clinical significance. ), Ultrasound: report reviewed by me (Gallbladder: No acute intra- abdominal pathology. Slightly complex right renal cyst now present at the lower pole, not seen previoulsy. Consider 12 month follow up) Disposition Clinical Impression: Right lower lobe pneumonia, Diverticulosis, Complex right renal cyst, Vomiting and diarrhea Case discussed with: patient, patient's physician Disposition: Still a Patient Condition: Guarded Additional Instructions: Admit to Dr. Davis
[2017-02-10] MEDS ORDERED: LEVOFLOXACIN INJ 500 MG in PREMIX 1 EACH IV STA (12:41)
[2017-02-10] MEDS ORDERED: metroNIDAZOLE INJ 500 MG in PREMIX 1 EACH IV STA (12:41)
[2017-02-10] MEDS ORDERED: LEVOFLOXACIN INJ 100 ML IV ONE (12:48)
[2017-02-10] MEDS ORDERED: metroNIDAZOLE 500 MG/100 ML PREMIX IV ONE (12:48)
[2017-02-10 12:57] LABS: Band Neutrophils 15 % (0-10); Eosinophils 1 % (0-10); Hypochromasia Slight; Lymphocytes 6 % (20-55); Platelet Estimate Adequate; Segmented Neutrophils 74 % (50-85); Total Cells Counted 100
--- NOTE | 2017-02-10 13:13 | CT Report ---
CT abdomen pelvis wo con Indication: Nausea vomiting and diarrhea. Left lower quadrant abdominal pain. Elevated white blood cell count. History of prior diverticulitis. Comparison: None. Technique: CT of the abdomen and pelvis was performed without administration of intravenous contrast. The CT examination was performed using one or more of the following dose reduction techniques: Automatic exposure control, adjustment of the mA and kV according to patient size, use of acute or iterative reconstruction techniques. Findings: Complete evaluation of solid organs, vascular structures, and bowel wall is not possible secondary to lack of intravenous contrast. Lower chest: Air space attenuation and consolidation of the right lower lobe is present that has surrounding groundglass attenuation superimposed on thickened intralobular septal lines. The appearance of the right lower lobe is most suggestive of an infectious process. The lower chest otherwise demonstrates no evidence of acute pathology. Liver: The liver is minimally enlarged measuring 22 cm in craniocaudal dimension. No focal lesion of the liver as demonstrated on noncontrast enhanced CT. Gallbladder: Gallbladder is upper limits of normal in size. No stones or wall thickening clearly demonstrated. Spleen: Spleen demonstrates no significant abnormality. Pancreas: Pancreas demonstrates no significant abnormality. Adrenal glands: Digital implants demonstrate no significant abnormalities. Kidneys: Left kidney demonstrates an exophytic structure round in shape measuring 2.1 cm favored to represent cyst. The right kidney demonstrates hypoattenuating lesion of the posterior medial cortex measuring up to 2.5 cm. A curvilinear internal calcification is suggested. Further evaluation is limited secondary to lack of intravenous contrast. Complex cyst and/or cystic renal cell carcinoma not excluded. Distal ureters are not identified within the pelvis secondary to streak artifact arising from right hip prosthesis. No urolithiasis is demonstrated within the abdomen and upper pelvis. Aorta: Diffuse intimal calcification is noted throughout the aorta, SMA origin, bilateral renal arteries, and iliac arteries. Inferior vena cava: Inferior vena cava is normal in appearance. Lymph nodes: No adenopathy is noted within the abdomen or pelvis. Stomach and bowel: Stomach demonstrates no significant abnormality. A duodenal diverticulum is present at the second portion of the duodenum. Duodenum and small bowel otherwise are unremarkable. The large bowel demonstrates multiple diverticula involving the descending and sigmoid colon. No inflammatory changes are present. Intrapelvic contents: No acute findings are noted within the pelvis. The uterus is surgically absent. Osseous structures: Prior right hip arthroplasty is demonstrated. Bony structures appear demineralized. No acute osseous pathology is present. Soft tissues and musculature: Soft tissues and musculature of the body wall demonstrate no acute findings. Impression: 1. Findings compatible with right lower lobe pneumonia. 2. Colonic diverticulosis is present without evidence of diverticulitis. 3. Complex right renal cyst with internal calcification or septal calcification as differential considerations including cystic renal cell carcinoma. 4. Mild hepatomegaly is of uncertain clinical significance. 02/10/2017 1:06 PM PROCEDURE INTERPRETED AT [facility] DEPARTMENT OF RADIOLOGY Final Report Signed by: Dr. Franklin Harding
--- NOTE | 2017-02-10 13:14 | XRay Report ---
XR chest 1V portable Indication: Elevated white blood cell count. Comparison: Chest x-ray 11/02/2016. Technique: Portable AP chest was performed. Findings: Since the comparison study, there has been interval development of patchy somewhat confluent airspace opacification in the mid to lower right lung. The left lung and upper right lung are clear. Heart size appears within normal limits. Bones and soft tissues demonstrate no evidence of acute pathology. Impression: 1. Infectious process mid lower right lung is suggested. Follow-up is recommended to ensure resolution. 02/10/2017 1:10 PM PROCEDURE INTERPRETED AT [facility] DEPARTMENT OF RADIOLOGY Final Report Signed by: Dr. Franklin Harding
[2017-02-10] MEDS: SODIUM CHLORIDE 0.9% 1,000 ML IV SCH (16:20)
--- NOTE | 2017-02-10 19:01 | Family Practice History&Phys ---
Assessment and Plan (1) Right lower lobe pneumonia Status: Acute Assessment and plan: We will admit and start on appropriate therapy and antibiotics. Current Visit: Yes (2) Vomiting and diarrhea Status: Acute Assessment and plan: We'll admit and start on IV hydration and treat symptomatically Current Visit: Yes (3) Generalized weakness Status: Acute Assessment and plan: Symptoms have progressed over the last several days. Current Visit: No (4) chronic obstructive pulmonary disease Status: Chronic Assessment and plan: Stable on present medications. Has occasional exacerbations. Current Visit: Yes (5) type 2 diabetes mellitus Status: Chronic Assessment and plan: Blood sugars have been under good control on present medications Current Visit: No (6) gastroesophageal reflux Status: Chronic Assessment and plan: Stable on present medications Current Visit: No (7) hyperlipidemia Status: Chronic Assessment and plan: Stable on present medications Current Visit: No (8) hypertension Status: Chronic Assessment and plan: Stable with present treatment plan Current Visit: No History of Present Illness Chief complaint: nausea vomiting weakness and diffuse abdominal pain History of present illness: Ms. Goldstein is a 81 year old female Patient is an 81-year-old white female well known to me who presented to the emergency room complaining of nausea vomiting which occurred over the last 12- 24 hours her. She's has some diffuse abdominal pain associated with the nausea and vomiting. His head low-grade fever and malaise. She had slight cough at times. Patient was seen in the emergency room and noted to be extremely weak. The patient had an elevated white blood cell count 17,300. She was noted on abdominal CT scan and chest x-ray to have a right lower lobe pneumonia. Was also noted to have a right renal cyst which has not previously been noted on the studies. In view of the degree of weakness and other symptoms it was elected to admit for further evaluation and therapy. Home Medications Medication Instructions Recorded Confirmed Type Ascorbic Acid [Vitamin C] 500 mg PO DAILY 03/18/16 02/10/17 History Aspirin [Ecotrin] 81 mg PO DAILY 03/18/16 02/10/17 History Dicyclomine Cap/Tab [Bentyl 10 mg PO BID 03/18/16 02/10/17 History Cap/Tab] Ferrous Sulfate 325 mg PO BID 03/18/16 02/10/17 History Gemfibrozil 600 mg PO BID 03/18/16 02/10/17 History NIFEdipine XL TAB [Procardia Xl] 60 mg PO DAILY 03/18/16 02/10/17 History Omeprazole 40 mg PO QAM 03/18/16 02/10/17 History Polyethylene Glycol Powder 17 gm PO QPM 03/18/16 02/10/17 History [Miralax] glipiZIDE [Glipizide] 10 mg PO BID 03/18/16 02/10/17 History hydroCHLOROthiazide 25 mg PO DAILY 03/18/16 02/10/17 History [Hydrochlorothiazide] Gabapentin 600 mg PO BEDTIME 10/25/16 02/10/17 History Metformin HCl [Metformin HCl ER] 750 mg PO DAILY W/BREAKFAST 10/25/16 02/10/17 History metFORMIN [Glucophage] 500 mg PO DAILY W/SUPPER 10/25/16 02/10/17 History Albuterol Neb [Proventil Neb] 2.5 mg RESP TX RT Q8H PRN 02/10/17 02/10/17 History Gabapentin 300 mg PO QAM 02/10/17 02/10/17 History Lactobacillus Combo No.6 1 each PO DAILY 02/10/17 02/10/17 History [Probiotic Complex] Allergies Allergy/AdvReac Type Severity Reaction Status Date / Time Iodinated Contrast Media - Allergy SHORTNESS Verified 03/18/16 17:28 Oral and OF BREATH [Iodinated Contrast Media - IV Dye] Amoxicillin [From Augmentin] AdvReac Vomiting Verified 03/18/16 17:28 clavulanic acid AdvReac Vomiting Verified 03/18/16 17:28 [From Augmentin] Medical,Surgical,& Family Hx - Medical History Cardio: History of: Hypertension Neurology: History of: Peripheral Neuropathy HEENT: History of: Dental Problems Endocrine: History of: Diabetes Mellitus (NIDDM), Dyslipidemia Rheumatology: History of;: Rheumatological Problems Respiratory: History of: Asthma, Bronchitis, COPD, Pneumonia Genitourinary: History of: Recurring Urinary Tract Infections Gastrointestinal: History of: GERD, Gastrointestinal Bleed, GI Problems ( history irritable bowel syndrome, diverticulosis, diverticulitis) Musculoskeletal: History of: Back/Neck Problems, Musculoskeletal Problems ( Arthritis) Hematology: History of: Anemia - Surgical History HEENT Surgeries: Surgical HX of: Eye Surgery (Cataracts), Tonsilectomy & Adenoidectomy Abdominal Surgeries: Surgical HX of: Appendectomy Reproductive Surgeries: Surgical HX of;: Genitourinary Surgery (bladder suspension), Hysterectomy Orthopedic Surgeries: Surgical HX of;: Total Hip Replacement, Total Knee Replacement - Family History Family History: Reports;: Family Cancer (2 Sister, 1 brother), Family Diabetes ( mother, 2 sisters, 1 brother), Family Heart Disease (1 sister), Family Hypertension (mother, father,), Family Stroke (father) Denies;: Family Anesthesia Reaction, Family Psychiatric Problems - Social History Smoking Status: Never smoker Frequency of Alcohol Use: None Type of Drug Use: None Marital Status: Lives With:: Children Functional capacity: uses cane/walker Exam - Constitutional Vitals: Period Temp Pulse Resp BP Sys/Mendez Pulse Ox Last 24 Hr 97.5 F-98.1 F 72-82 18-28 67-138/37-51 91-99 General appearance: mild distress - Head Head exam: Present: normal inspection - Eye Pupils: Present: ADAM - ENT ENT exam: Present: normal exam - Neck Neck exam: Present: normal inspection - Respiratory Respiratory exam: Present: clear to auscultation bilaterally - Cardiovascular Cardiovascular exam: Present: irregular rhythm, tachycardia - GI/Abdominal GI/Abdominal exam: Present: hyperactive bowel sounds, tenderness (some diffuse abdominal tenderness) - Extremities Exam Extremities exam: Present: full ROM, edema - Back Exam Back exam: Present: normal inspection - Neurological Exam Neurological exam: Present: alert, oriented X3 - Psychiatric Psychiatric exam: Present: normal affect - Skin Skin exam: Present: normal color Results - Labs CBC & BMP: 02/10/17 10:51 02/10/17 10:51
[2017-02-10] MEDS ORDERED: ALBUTEROL 2.5 MG/3 ML NEB RESP TX PRN (19:19)
[2017-02-10] MEDS: FLUTICASONE/SALMETEROL 250-50 DISKUS 14 DOSE INH SCH (20:24)
[2017-02-10] MEDS: GABAPENTIN 300 MG CAPSULE PO SCH (20:25)
[2017-02-10] MEDS: DOCUSATE SODIUM 100 MG CAPSULE PO SCH (20:26)
[2017-02-10] MEDS: GEMFIBROZIL 600 MG TABLET PO SCH (20:27)
[2017-02-10] MEDS: FERROUS SULFATE 325 MG TABLET PO SCH (20:27)
[2017-02-10] MEDS: DICYCLOMINE 10 MG CAPSULE PO SCH (20:27)
[2017-02-10] MEDS: ACETAMINOPHEN 325 MG TABLET PO PRN (20:27)
[2017-02-10] MEDS: INSULIN LISPRO 100 UNIT/ML SUBCUT SCH (20:42)
[2017-02-10] MEDS ORDERED: glipiZIDE 10 MG TABLET PO SCH (21:00)
[2017-02-11] MEDS: SODIUM CHLORIDE 0.9% 1,000 ML IV SCH ×3 (00:16→17:10)
[2017-02-11 06:48] LABS: Basophils % 0.2 % (0.0-0.8); Eosinophils # 0.2 10*3/uL (0.0-0.87); Eosinophils % 1.3 % (0.00-10.9); Hematocrit 32.5 VOL% (35.7-47.0); Immature Granulocytes % 0.5 %; Immature Granulocytes Absolute 0.09 #; Lymphocytes # 1.7 10*3/uL (1.4-4.0); Lymphocytes % 9.1 % (21.3-54.2); Mean Corpuscular HGB Conc 32.9 GM/DL (32-36); Mean Corpuscular Hemoglobin 29 PG (27-34); Mean Corpuscular Volume 87.1 FL (87-102); Monocytes # 1.2 10*3/uL (0.11-0.8); Monocytes % 6.6 % (1.7-12.7); Neutrophils % 82.3 % (38.7-73.9); Red Cell Distribution Width 13.6 % (9.3-17.3); White Blood Count 18.3 T/CUMM (4-12)
[2017-02-11 06:50] LABS: Hemoglobin 10.7 GM/DL (12.0-16.0); Platelet Count 243 T/CUMM (130-400); Red Blood Count 3.73 MC/CUMM (3.8-5.5)
[2017-02-11 07:06] LABS: Band Neutrophils 7 % (0-10); Eosinophils 2 % (0-10); Hypochromasia 1+; Lymphocytes 7 % (20-55); Segmented Neutrophils 80 % (50-85); Total Cells Counted 100
[2017-02-11 07:07] LABS: Microcytosis 1+; Ovalocytes Slight; Platelet Estimate Normal
[2017-02-11 07:18] LABS: Calcium 8.8 MG/DL (8.5-10.1); Magnesium 2.1 MG/DL (1.8-2.4); Potassium 3.8 MMOL/L (3.5-5.1); Risk Ratio 1.9; Thyroid Stimulating Hormone 0.683 uIU/ml (0.358-3.74); VLDL CHOLESTEROL 6.6 MG/DL
[2017-02-11] MEDS: INSULIN LISPRO 100 UNIT/ML SUBCUT SCH ×4 (07:55→20:25)
[2017-02-11] MEDS ORDERED: GLUCAGON 1 MG VIAL IM PRN (07:58)
[2017-02-11] MEDS ORDERED: DEXTROSE 50% 25 GM/50 ML VIAL IV PRN (07:58)
--- NOTE | 2017-02-11 08:10 | Family Practice Progress Note ---
Family Practice - PN: Subj Interval history: Patient was admitted with nausea vomiting diarrhea and severe weakness. She was noted to be volume repleted with a white blood cell count of 18,300. She was found to have a right lower lobe pneumonia. She has responded well to IV fluids and medications. Her nausea has resolved but she is still very weak. Her chest x-ray this a.m. is improved. Her lung bassett are clear to auscultation abdomen is soft. Plan to continue present treatment plan Exam (Progress Note) - Constitutional Vitals: Period Temp Pulse Resp BP Sys/Mendez Pulse Ox Last 24 Hr 97.5 F-98.7 F 57-82 18-28 67-162/37-71 91-99 Results - Labs CBC & BMP: 02/11/17 06:06 02/11/17 06:06 Assessment and Plan (1) Right lower lobe pneumonia Status: Acute Assessment and plan: We will admit and start on appropriate therapy and antibiotics. Current Visit: Yes (2) Vomiting and diarrhea Status: Acute Assessment and plan: We'll admit and start on IV hydration and treat symptomatically Current Visit: Yes (3) Generalized weakness Status: Acute Assessment and plan: Symptoms have progressed over the last several days. Current Visit: No (4) chronic obstructive pulmonary disease Status: Chronic Assessment and plan: Stable on present medications. Has occasional exacerbations. Current Visit: Yes (5) type 2 diabetes mellitus Status: Chronic Assessment and plan: Blood sugars have been under good control on present medications Current Visit: No (6) gastroesophageal reflux Status: Chronic Assessment and plan: Stable on present medications Current Visit: No (7) hyperlipidemia Status: Chronic Assessment and plan: Stable on present medications Current Visit: No (8) hypertension Status: Chronic Assessment and plan: Stable with present treatment plan Current Visit: No
[2017-02-11] MEDS: ASCORBIC ACID 500 MG TABLET PO SCH (08:54)
[2017-02-11] MEDS: FERROUS SULFATE 325 MG TABLET PO SCH ×2 (08:54→20:18)
[2017-02-11] MEDS: LACTOBACILLUS ACIDOPHILUS/BULGARICUS CAPLET PO SCH (08:55)
[2017-02-11] MEDS: PANTOPRAZOLE 40 MG TABLET PO SCH (08:55)
[2017-02-11] MEDS: DICYCLOMINE 10 MG CAPSULE PO SCH ×2 (08:55→20:18)
[2017-02-11] MEDS: glipiZIDE 10 MG TABLET PO SCH ×2 (08:56→18:34)
[2017-02-11] MEDS: hydroCHLOROthiazide 25 MG TABLET PO SCH (08:56)
[2017-02-11] MEDS: DOCUSATE SODIUM 100 MG CAPSULE PO SCH ×2 (08:58→20:18)
[2017-02-11] MEDS: ASPIRIN EC 81 MG TABLET PO SCH (08:58)
[2017-02-11] MEDS ORDERED: LEVOFLOXACIN INJ 250 MG in PREMIX 1 EACH IV SCH (09:00)
[2017-02-11] MEDS: GEMFIBROZIL 600 MG TABLET PO SCH ×2 (09:03→20:18)
[2017-02-11] MEDS: FLUTICASONE/SALMETEROL 250-50 DISKUS 14 DOSE INH SCH ×2 (09:04→20:18)
[2017-02-11] MEDS: GABAPENTIN 300 MG CAPSULE PO SCH ×2 (09:05→20:17)
[2017-02-11] MEDS: LEVOFLOXACIN INJ 500 MG in PREMIX 1 EACH IV SCH (09:49)
[2017-02-11] MEDS: ACETAMINOPHEN 325 MG TABLET PO PRN ×2 (10:01→21:19)
[2017-02-11] MEDS: ONDANSETRON 4 MG/2 ML VIAL IV PRN (10:02)
--- NOTE | 2017-02-11 10:21 | XRay Report ---
XR chest 2V Indication: Right lower lobe pneumonia. Comparison: Chest x-ray 02/10/2017 Technique: PA and lateral chest x-ray was performed. Findings: Interval partial clearing of airspace disease within the mid to lower right lung is demonstrated. The chest otherwise demonstrates little change. Impression: 1. Interval partial clearing of the right lung is demonstrated. 02/11/2017 10:18 AM PROCEDURE INTERPRETED AT [facility] DEPARTMENT OF RADIOLOGY Final Report Signed by: Dr. Franklin Harding
[2017-02-11] MEDS ORDERED: metFORMIN 500 MG TABLET PO SCH (17:00)
[2017-02-11] MEDS: POLYETHYLENE GLYCOL POWDER 17 GM PACK PO SCH (18:35)
[2017-02-12] MEDS: SODIUM CHLORIDE 0.9% 1,000 ML IV SCH ×3 (01:30→18:25)
[2017-02-12 05:51] LABS: Basophils % 0.3 % (0.0-0.8); Eosinophils # 0.2 10*3/uL (0.0-0.87); Eosinophils % 1.4 % (0.00-10.9); Hematocrit 30.8 VOL% (35.7-47.0); Hemoglobin 9.9 GM/DL (12.0-16.0); Immature Granulocytes Absolute 0.15 #; Lymphocytes # 0.8 10*3/uL (1.4-4.0); Lymphocytes % 5.1 % (21.3-54.2); Mean Corpuscular HGB Conc 32.1 GM/DL (32-36); Mean Corpuscular Hemoglobin 28 PG (27-34); Mean Corpuscular Volume 87.7 FL (87-102); Mean Platelet Volume 12.2 FL (9.6-12.0); Monocytes % 6.6 % (1.7-12.7); Neutrophils # 13.1 10*3/uL (1.4-7.4); Neutrophils % 85.6 % (38.7-73.9); Platelet Count 224 T/CUMM (130-400); Red Blood Count 3.51 MC/CUMM (3.8-5.5); Red Cell Distribution Width 13.7 % (9.3-17.3); White Blood Count 15.3 T/CUMM (4-12)
[2017-02-12 06:16] LABS: Calcium 7.3 MG/DL (8.5-10.1); Osmolality,Calculated 295.7 MOS/KG (273-304); Potassium 3.8 MMOL/L (3.5-5.1)
--- NOTE | 2017-02-12 07:11 | Family Practice Progress Note ---
Family Practice - PN: Subj Interval history: Patient seen this morning. She still has rhonchi and some shortness of breath. Her oxygen sats running approximately 90-94. White count still elevated at 15.3 and hemoglobin hematocrit are running 10 and 31. Fortunately, her creatinine is come down to 1.20 and glucose is within normal limits 126. Overall continuing antibiotics and will monitor MIS closely. She is very alert and responsive to questions Exam (Progress Note) - Constitutional Vitals: Period Temp Pulse Resp BP Sys/Mendez Pulse Ox Last 24 Hr 96.6 F-98.9 F 61-82 18-21 74-154/44-69 90-95 Exam: Generally alert and oriented answers all questions appropriately HEENT neck supple trachea midline Lungs positive rhonchi. Patient is on O2 2 L. Does have a paroxysmal cough and will give her medication for this Cardiovascular rate regular no gallop or rub Abdomen soft nondistended Extremities no clubbing or cyanosis Results - Labs CBC & BMP: 02/12/17 04:51 02/12/17 04:51 Assessment and Plan (1) Right lower lobe pneumonia Status: Acute Assessment and plan: 02/12/2017: We will plan on getting a chest x-ray this Tuesday. We are continuing IV antibiotic Current Visit: Yes
[2017-02-12] MEDS: INSULIN LISPRO 100 UNIT/ML SUBCUT SCH ×2 (07:43→18:11)
[2017-02-12] MEDS: glipiZIDE 10 MG TABLET PO SCH ×2 (07:44→16:32)
[2017-02-12 08:15] LABS: Burr Cells 2+; Segmented Neutrophils 93 % (50-85); Target Cells Slight; Total Cells Counted 100
[2017-02-12 08:16] LABS: Platelet Estimate Adequate
[2017-02-12] MEDS: LEVOFLOXACIN INJ 500 MG in PREMIX 1 EACH IV SCH (09:13)
[2017-02-12] MEDS: DICYCLOMINE 10 MG CAPSULE PO SCH ×2 (09:15→20:30)
[2017-02-12] MEDS: ASCORBIC ACID 500 MG TABLET PO SCH (09:15)
[2017-02-12] MEDS: FERROUS SULFATE 325 MG TABLET PO SCH ×2 (09:15→20:30)
[2017-02-12] MEDS: LACTOBACILLUS ACIDOPHILUS/BULGARICUS CAPLET PO SCH (09:16)
[2017-02-12] MEDS: DOCUSATE SODIUM 100 MG CAPSULE PO SCH ×2 (09:16→20:30)
[2017-02-12] MEDS: hydroCHLOROthiazide 25 MG TABLET PO SCH (09:16)
[2017-02-12] MEDS: GEMFIBROZIL 600 MG TABLET PO SCH ×2 (09:17→20:30)
[2017-02-12] MEDS: PANTOPRAZOLE 40 MG TABLET PO SCH (09:17)
[2017-02-12] MEDS: ASPIRIN EC 81 MG TABLET PO SCH (09:17)
[2017-02-12] MEDS: GABAPENTIN 300 MG CAPSULE PO SCH ×2 (09:17→20:30)
[2017-02-12] MEDS: FLUTICASONE/SALMETEROL 250-50 DISKUS 14 DOSE INH SCH ×2 (09:19→20:30)
[2017-02-12] MEDS: DEXTROMETHORPHAN ER 6 MG/ML 90 ML/BOTTLE PO PRN ×2 (09:25→20:41)
[2017-02-12] MEDS: metFORMIN 500 MG TABLET PO SCH (16:32)
[2017-02-12] MEDS: POLYETHYLENE GLYCOL POWDER 17 GM PACK PO SCH (18:24)
[2017-02-12] MEDS: ACETAMINOPHEN 325 MG TABLET PO PRN (22:25)
[2017-02-13] MEDS: SODIUM CHLORIDE 0.9% 1,000 ML IV SCH ×2 (06:57→18:14)
--- NOTE | 2017-02-13 08:26 | Family Practice Progress Note ---
Family Practice - PN: Subj Interval history: Patient seen this morning. She still has rhonchi and some shortness of breath. Her oxygen sats running approximately 90-94. White count still elevated at 15.3 and hemoglobin hematocrit are running 10 and 31. Fortunately, her creatinine is come down to 1.20 and glucose is within normal limits 126. Overall continuing antibiotics and will monitor MIS closely. She is very alert and responsive to questions 02/13/2017: Patient seen this morning. She arouses easily and talks very coherently and is very pleasant. Her temperature is about 99.1 but she is denying any chills. Does have some loose all pulmonary rhonchi but is not having shortness of breath on 2 L of O2. Vital signs are stable except for an elevation of blood pressure 198/83, will have them recheck. At this time will maintain current medications. Does have a little wheezing and we are going to start some Xopenex treatments. Exam (Progress Note) - Constitutional Vitals: Period Temp Pulse Resp BP Sys/Mendez Pulse Ox Last 24 Hr 97.4 F-99.1 F 68-80 18-22 120-198/52-92 92-95 Exam: Generally alert and oriented answers all questions appropriately HEENT neck supple trachea midline Lungs positive rhonchi. Patient is on O2 2 L. Does have a paroxysmal cough and will give her medication for this. Some mild wheezing will start beta agonist breathing treatment Cardiovascular rate regular no gallop or rub Abdomen soft nondistended Extremities no clubbing or cyanosis Results - Labs CBC & BMP: 02/12/17 04:51 02/12/17 04:51 Assessment and Plan (1) Right lower lobe pneumonia Status: Acute Assessment and plan: 02/12/2017: We will plan on getting a chest x-ray this Tuesday. We are continuing IV antibiotic 02/13/2017 continuing antibiotics and doing breathing treatment Current Visit: Yes (2) Hypertension Status: Acute Assessment and plan: 02/13/2017: We will have the nurses recheck her blood pressure. Had not had her blood pressure medicine this morning as of the time reading was done Current Visit: Yes
[2017-02-13] MEDS: FLUTICASONE/SALMETEROL 250-50 DISKUS 14 DOSE INH SCH ×2 (09:52→21:04)
[2017-02-13] MEDS: LEVOFLOXACIN INJ 500 MG in PREMIX 1 EACH IV SCH (09:53)
[2017-02-13] MEDS: glipiZIDE 10 MG TABLET PO SCH ×2 (09:54→17:31)
[2017-02-13] MEDS: DICYCLOMINE 10 MG CAPSULE PO SCH ×2 (09:54→21:04)
[2017-02-13] MEDS: hydroCHLOROthiazide 25 MG TABLET PO SCH (09:54)
[2017-02-13] MEDS: GABAPENTIN 300 MG CAPSULE PO SCH ×2 (09:54→21:03)
[2017-02-13] MEDS: INSULIN LISPRO 100 UNIT/ML SUBCUT SCH ×2 (09:54→17:30)
[2017-02-13] MEDS: LACTOBACILLUS ACIDOPHILUS/BULGARICUS CAPLET PO SCH (09:54)
[2017-02-13] MEDS: ASPIRIN EC 81 MG TABLET PO SCH (09:55)
[2017-02-13] MEDS: FERROUS SULFATE 325 MG TABLET PO SCH ×2 (09:55→21:03)
[2017-02-13] MEDS: GEMFIBROZIL 600 MG TABLET PO SCH ×2 (09:55→21:03)
[2017-02-13] MEDS: DOCUSATE SODIUM 100 MG CAPSULE PO SCH ×2 (09:55→21:03)
[2017-02-13] MEDS: DEXTROMETHORPHAN ER 6 MG/ML 90 ML/BOTTLE PO PRN ×2 (09:56→21:04)
[2017-02-13] MEDS: PANTOPRAZOLE 40 MG TABLET PO SCH (10:00)
[2017-02-13] MEDS: ASCORBIC ACID 500 MG TABLET PO SCH (10:00)
[2017-02-13] MEDS: ACETAMINOPHEN 325 MG TABLET PO PRN (12:07)
[2017-02-13] MEDS: metFORMIN 500 MG TABLET PO SCH (17:31)
[2017-02-13] MEDS: POLYETHYLENE GLYCOL POWDER 17 GM PACK PO SCH (18:15)
[2017-02-13] MEDS: ONDANSETRON 4 MG/2 ML VIAL IV PRN (20:05)
[2017-02-13] MEDS ORDERED: PROMETHAZINE 25 MG/1 ML VIAL IM PRN ×2 (23:25→23:29)
[2017-02-13] MEDS ORDERED: PROMETHAZINE 25 MG/1 ML VIAL IM SCH (23:30)
--- NOTE | 2017-02-14 06:55 | Physician Query Form ---
CLICK EDIT DOCUMENT TO SELECT QUERY ANSWER --> OK --> SIGN Salima Harding RN, CCDS Certified Clinical Lifter Driver W) [phone] (f) [phone] [email or web address] PROVIDERS: Make your selection(s) from the choices in EACH section by typing an "x" and enter comments in the comment section. Please use your independent medical judgment in providing your response. This request does not imply that any particular answer is desired or expected. CLINICAL INDICATORS: (Providers should not edit this section) The medical record indicates that the patient was admitted with vomiting, diarrhea, creatinine of 2.20# on the 6th that has decreased to 1.20# on the 8th , GFR of 23# that has increased to 49# on the 8th, and the patient was treated with IVF's. Clarify which of the following most accurately represents the patient's renal status: ( ) Acute kidney injury (non-traumatic) ( x) Acute renal failure ( ) Acute renal failure with underlying Chronic Kidney Disease (CKD) - please provide stage below ( ) Acute renal failure with pathological renal lesion ( ) Acute renal failure with necrosis ( ) tubular ( ) medullary ( ) cortical ( ) CKD - please provide stage below ( ) End Stage Renal Disease ( ) Acute interstitial nephritis ( ) Hepatorenal syndrome ( ) Other, please specify: ( ) Clinically unable to determine Chronic Kidney Disease Stages Source: National Kidney [employer] Foundation ( ) Stage I (eGFR > or = 90) ( ) Stage II (eGFR 60 - 89) ( ) Stage III (eGFR 30 - 59) ( ) Stage IV (eGFR 15 - 29) ( ) Stage V (eGFR < 15 or dialysis) COMMENTS: PLEASE ALSO DOCUMENT RESPONSE IN PROGRESS NOTES AND/OR DISCHARGE SUMMARY Use of terms such as suspected, likely, or probable (associated with a specific diagnosis that is being evaluated, monitored, or treated as if it exists) are acceptable and can be restated in the discharge summary if not ruled out. MTDD
[2017-02-14] MEDS: hydroCHLOROthiazide 25 MG TABLET PO SCH (08:40)
[2017-02-14] MEDS: DOCUSATE SODIUM 100 MG CAPSULE PO SCH ×2 (08:40→20:50)
[2017-02-14] MEDS: glipiZIDE 10 MG TABLET PO SCH ×2 (08:40→16:35)
[2017-02-14] MEDS: FERROUS SULFATE 325 MG TABLET PO SCH ×2 (08:40→20:47)
--- NOTE | 2017-02-14 08:40 | Family Practice Progress Note ---
Family Practice - PN: Subj Interval history: Patient continues to improve respiratory status. Her blood sugars have been low. Blood pressures have been elevated. No changes made over the weekend. Her lung bassett are clear to auscultation this a.m. Patient still very weak so will have patient increase activity today have modified both blood pressure and blood sugar medications. If patient stable hopefully can discharge a.m. Exam (Progress Note) - Constitutional Vitals: Period Temp Pulse Resp BP Sys/Mendez Pulse Ox Last 24 Hr 97.1 F-98.8 F 66-80 20-22 162-200/70-85 92-100 Results - Labs CBC & BMP: 02/12/17 04:51 02/12/17 04:51 Assessment and Plan (1) Right lower lobe pneumonia Status: Acute Assessment and plan: We will admit and start on appropriate therapy and antibiotics. Current Visit: Yes (2) Vomiting and diarrhea Status: Acute Assessment and plan: We'll admit and start on IV hydration and treat symptomatically Current Visit: Yes (3) Generalized weakness Status: Acute Assessment and plan: Symptoms have progressed over the last several days. Current Visit: No (4) chronic obstructive pulmonary disease Status: Chronic Assessment and plan: Stable on present medications. Has occasional exacerbations. Current Visit: Yes (5) type 2 diabetes mellitus Status: Chronic Assessment and plan: Blood sugars have been under good control on present medications Current Visit: No (6) gastroesophageal reflux Status: Chronic Assessment and plan: Stable on present medications Current Visit: No (7) hyperlipidemia Status: Chronic Assessment and plan: Stable on present medications Current Visit: No (8) hypertension Status: Chronic Assessment and plan: Stable with present treatment plan Current Visit: No
[2017-02-14] MEDS: IRBESARTAN 150 MG TABLET PO SCH (08:43)
[2017-02-14] MEDS: GABAPENTIN 300 MG CAPSULE PO SCH ×2 (08:43→20:57)
[2017-02-14] MEDS: GEMFIBROZIL 600 MG TABLET PO SCH ×2 (08:45→20:57)
[2017-02-14] MEDS: ASCORBIC ACID 500 MG TABLET PO SCH (08:45)
[2017-02-14] MEDS: DICYCLOMINE 10 MG CAPSULE PO SCH ×2 (08:45→20:50)
[2017-02-14] MEDS: PANTOPRAZOLE 40 MG TABLET PO SCH (08:45)
[2017-02-14] MEDS: ASPIRIN EC 81 MG TABLET PO SCH (08:45)
[2017-02-14] MEDS: LACTOBACILLUS ACIDOPHILUS/BULGARICUS CAPLET PO SCH (08:45)
[2017-02-14] MEDS: FLUTICASONE/SALMETEROL 250-50 DISKUS 14 DOSE INH SCH ×2 (08:51→20:50)
[2017-02-14] MEDS: INSULIN LISPRO 100 UNIT/ML SUBCUT SCH ×2 (08:51→16:35)
[2017-02-14] MEDS: LEVOFLOXACIN INJ 500 MG in PREMIX 1 EACH IV SCH (08:52)
[2017-02-14] MEDS: SODIUM CHLORIDE 0.9% 1,000 ML IV SCH ×2 (16:36→22:50)
[2017-02-14] MEDS: POLYETHYLENE GLYCOL POWDER 17 GM PACK PO SCH (18:04)
[2017-02-14] MEDS: ACETAMINOPHEN 325 MG TABLET PO PRN (20:48)
[2017-02-15 02:15] LABS: Osmolality,Calculated 284.8 MOS/KG (273-304); Potassium 4.1 MMOL/L (3.5-5.1)
[2017-02-15 02:40] LABS: Basophils % 0.5 % (0.0-0.8); Eosinophils # 0.4 10*3/uL (0.0-0.87); Eosinophils % 5.2 % (0.00-10.9); Hematocrit 34.4 VOL% (35.7-47.0); Hemoglobin 11.2 GM/DL (12.0-16.0); Immature Granulocytes Absolute 0.08 #; Lymphocytes # 1.9 10*3/uL (1.4-4.0); Lymphocytes % 23.5 % (21.3-54.2); Mean Corpuscular HGB Conc 32.6 GM/DL (32-36); Mean Corpuscular Hemoglobin 28 PG (27-34); Mean Corpuscular Volume 86.6 FL (87-102); Mean Platelet Volume 11.9 FL (9.6-12.0); Monocytes # 0.9 10*3/uL (0.11-0.8); Monocytes % 11.1 % (1.7-12.7); Neutrophils # 4.7 10*3/uL (1.4-7.4); Neutrophils % 58.7 % (38.7-73.9); Platelet Count 297 T/CUMM (130-400); Red Blood Count 3.97 MC/CUMM (3.8-5.5); Red Cell Distribution Width 13.6 % (9.3-17.3); White Blood Count 7.9 T/CUMM (4-12)
[2017-02-15 03:18] LABS: Burr Cells Few; Platelet Estimate Adequate
[2017-02-15] MEDS: glipiZIDE 10 MG TABLET PO SCH (07:55)
[2017-02-15 07:58] VITALS: BP 151/87
[2017-02-15] MEDS: INSULIN LISPRO 100 UNIT/ML SUBCUT SCH (07:59)
--- NOTE | 2017-02-15 08:09 | Discharge Summary ---
Hospital Course - Hospital Course Hospital Course: History of present illness: Ms. Goldstein is a 81 year old female Patient is an 81-year-old white female well known to me who presented to the emergency room complaining of nausea vomiting which occurred over the last 12- 24 hours her. She's has some diffuse abdominal pain associated with the nausea and vomiting. His head low-grade fever and malaise. She had slight cough at times. Patient was seen in the emergency room and noted to be extremely weak. The patient had an elevated white blood cell count 17,300. She was noted on abdominal CT scan and chest x-ray to have a right lower lobe pneumonia. Was also noted to have a right renal cyst which has not previously been noted on the studies. In view of the degree of weakness and other symptoms it was elected to admit for further evaluation and therap DISCHARGE SUMMARY -patient was admitted hospital lab and x-ray studies obtained. Chest x-ray revealed a right lower lobe pneumonia. Patient was started on appropriate antibiotics and therapy. She initially was having nausea vomiting and symptoms which resolved with hydration. White blood cell count on admission was 18,000. Her WBC at time of discharge 7.9. Patient is much improved at time of discharge. Her lab values are stable. Lung bassett are clear to auscultation. Tolerating diet activity and medications. Will discharge patient to home care and arrange follow-up in the clinic. Call or return to emergency room if condition worsening problems develop Diagnosis - Discharge Diagnosis (1) Right lower lobe pneumonia Status: Acute (2) Vomiting and diarrhea Status: Acute (3) Generalized weakness Status: Acute (4) chronic obstructive pulmonary disease Status: Chronic (5) type 2 diabetes mellitus Status: Chronic (6) gastroesophageal reflux Status: Chronic (7) hyperlipidemia Status: Chronic (8) hypertension Status: Chronic Discharge Plan - Discharge Data Disposition: Disch To Home/Self Care Condition at Discharge: Stable Discharge Diet: diabetic diet Activity: ambulate only with your walker Weight Bearing at Discharge: weight bear as tolerated Contact your physician if you experience:: fever over 101, Shortness of breath - Discharge Medications New Irbesartan [Avapro] 150 mg PO DAILY #30 tablet Levofloxacin Tab [Levaquin Tab] 500 mg PO Q24H #10 tablet Continue Ascorbic Acid [Vitamin C] 500 mg PO DAILY Omeprazole 40 mg PO QAM Dicyclomine Cap/Tab [Bentyl Cap/Tab] 10 mg PO BID Aspirin [Ecotrin] 81 mg PO DAILY Polyethylene Glycol Powder [Miralax] 17 gm PO QPM NIFEdipine XL TAB [Procardia Xl] 60 mg PO DAILY hydroCHLOROthiazide [Hydrochlorothiazide] 25 mg PO DAILY glipiZIDE [Glipizide] 10 mg PO BID Gemfibrozil 600 mg PO BID Ferrous Sulfate 325 mg PO BID Gabapentin 600 mg PO BEDTIME Metformin HCl [Metformin HCl ER] 750 mg PO DAILY W/BREAKFAST Lactobacillus Combo No.6 [Probiotic Complex] 1 each PO DAILY Gabapentin 300 mg PO QAM Albuterol Neb [Proventil Neb] 2.5 mg RESP TX RT Q8H PRN PRN Reason: Shortness Of Breath metFORMIN [Glucophage] 500 mg PO DAILY W/SUPPER - Follow Up or Referral Follow Up: Rush Davis DO [Physician] - 02/24/17 - Forms/Instructions Exam - Constitutional Vitals: Period Temp Pulse Resp BP Sys/Mendez Pulse Ox Last 24 Hr 97.6 F-98.6 F 61-65 18-22 142-167/66-87 94-96 General appearance: no acute distress - Head Head exam: Present: normal inspection - Eye Pupils: Present: ADAM - ENT ENT exam: Present: normal exam - Neck Neck exam: Present: normal inspection - Respiratory Respiratory exam: Present: clear to auscultation bilaterally - Cardiovascular Cardiovascular exam: Present: irregular rhythm - GI/Abdominal GI/Abdominal exam: Present: normal bowel sounds, soft - Extremities Exam Extremities exam: Present: normal inspection - Back Exam Back exam: Present: normal inspection - Neurological Exam Neurological exam: Present: alert, oriented X3 - Psychiatric Psychiatric exam: Present: normal affect - Skin Skin exam: Present: normal color Discharge Results Labs on day of discharge: Labs from last 24 hours 02/15/17 02/15/17 02/15/17 02:50 01:32 01:29 WBC RBC Hgb Hct MCV MCH MCHC RDW Plt Count MPV Neut % (Auto) Lymph % (Auto) Upson % (Auto) Eos % (Auto) Baso % (Auto) Neut # (Auto) Lymph # (Auto) Upson # (Auto) Eos # (Auto) Baso # (Auto) Immature Gran % Nucleated RBC % Immature Gran # Nucleated RBCs # Platelet Estimate Shweta Cells Sodium Potassium Chloride Carbon Dioxide Anion Gap BUN Creatinine GFR Calculation BUN/Creatinine Ratio Glucose 51 POC Glucose 120 H 69 L Calculated Osmolality Calcium 02/15/17 02/15/17 02/15/17 01:29 01:29 00:54 WBC 7.9 D RBC 3.97 Hgb 11.2 L Hct 34.4 L MCV 86.6 L MCH 28 MCHC 32.6 RDW 13.6 Plt Count 297 D MPV 11.9 Neut % (Auto) 58.7 Lymph % (Auto) 23.5 Upson % (Auto) 11.1 Eos % (Auto) 5.2 Baso % (Auto) 0.5 Neut # (Auto) 4.7 Lymph # (Auto) 1.9 Upson # (Auto) 0.9 H Eos # (Auto) 0.4 Baso # (Auto) 0.0 Immature Gran % 1.0 Nucleated RBC % 0.0 Immature Gran # 0.08 Nucleated RBCs # 0.00 Platelet Estimate Adequate Shweta Cells Few Sodium 144 Potassium 4.1 Chloride 109 H Carbon Dioxide 26 Anion Gap 13.1 BUN 18 Creatinine 1.10 H GFR Calculation 55 BUN/Creatinine Ratio 16.00 Glucose 50 L POC Glucose 30 L* Calculated Osmolality 284.8 Calcium 9.0 D 02/14/17 02/14/17 02/14/17 20:14 18:04 16:45 WBC RBC Hgb Hct MCV MCH MCHC RDW Plt Count MPV Neut % (Auto) Lymph % (Auto) Upson % (Auto) Eos % (Auto) Baso % (Auto) Neut # (Auto) Lymph # (Auto) Upson # (Auto) Eos # (Auto) Baso # (Auto) Immature Gran % Nucleated RBC % Immature Gran # Nucleated RBCs # Platelet Estimate Shweta Cells Sodium Potassium Chloride Carbon Dioxide Anion Gap BUN Creatinine GFR Calculation BUN/Creatinine Ratio Glucose POC Glucose 74 135 H 66 L Calculated Osmolality Calcium 02/14/17 02/14/17 02/14/17 16:07 15:05 11:17 WBC RBC Hgb Hct MCV MCH MCHC RDW Plt Count MPV Neut % (Auto) Lymph % (Auto) Upson % (Auto) Eos % (Auto) Baso % (Auto) Neut # (Auto) Lymph # (Auto) Upson # (Auto) Eos # (Auto) Baso # (Auto) Immature Gran % Nucleated RBC % Immature Gran # Nucleated RBCs # Platelet Estimate Shweta Cells Sodium Potassium Chloride Carbon Dioxide Anion Gap BUN Creatinine GFR Calculation BUN/Creatinine Ratio Glucose POC Glucose 68 L 61 L 104 Calculated Osmolality Calcium 02/14/17 08:20 WBC RBC Hgb Hct MCV MCH MCHC RDW Plt Count MPV Neut % (Auto) Lymph % (Auto) Upson % (Auto) Eos % (Auto) Baso % (Auto) Neut # (Auto) Lymph # (Auto) Upson # (Auto) Eos # (Auto) Baso # (Auto) Immature Gran % Nucleated RBC % Immature Gran # Nucleated RBCs # Platelet Estimate Clay Cells Sodium Potassium Chloride Carbon Dioxide Anion Gap BUN Creatinine GFR Calculation BUN/Creatinine Ratio Glucose POC Glucose 88 Calculated Osmolality Calcium DS: Provider Date of admission: 02/11/17 09:17 Primary care physician: . No PCP Attending physician on admission: Rush Davis DO Consults: 02/10/17 13:24 Consult to Case Mgmt/Social Srvs [CONS] Routine Reason for Case Mgmt/Social Srvs: Discharge Planning Discharging clinician: Rush Davis DO
[2017-02-15] MEDS ORDERED: LEVOFLOXACIN 500 MG TABLET PO SCH (08:30)
[2017-02-15] MEDS: ASCORBIC ACID 500 MG TABLET PO SCH (08:44)
[2017-02-15] MEDS: hydroCHLOROthiazide 25 MG TABLET PO SCH (08:44)
[2017-02-15] MEDS: FERROUS SULFATE 325 MG TABLET PO SCH (08:44)
[2017-02-15] MEDS: LACTOBACILLUS ACIDOPHILUS/BULGARICUS CAPLET PO SCH (08:44)
[2017-02-15] MEDS: DOCUSATE SODIUM 100 MG CAPSULE PO SCH (08:44)
[2017-02-15] MEDS: GEMFIBROZIL 600 MG TABLET PO SCH (08:44)
[2017-02-15] MEDS: PANTOPRAZOLE 40 MG TABLET PO SCH (08:44)
[2017-02-15] MEDS: IRBESARTAN 150 MG TABLET PO SCH (08:44)
[2017-02-15] MEDS: ASPIRIN EC 81 MG TABLET PO SCH (08:45)
[2017-02-15] MEDS: FLUTICASONE/SALMETEROL 250-50 DISKUS 14 DOSE INH SCH (08:45)
[2017-02-15] MEDS: DICYCLOMINE 10 MG CAPSULE PO SCH (08:45)
[2017-02-15] MEDS: GABAPENTIN 300 MG CAPSULE PO SCH (08:45)
[2017-02-15] MEDS: LEVOFLOXACIN INJ 500 MG in PREMIX 1 EACH IV SCH (08:46)
[2017-02-15] MEDS: DEXTROMETHORPHAN ER 6 MG/ML 90 ML/BOTTLE PO PRN (10:04)
== END 2017-02-15 10:25 | disposition home or self-care (01) | DRG 190 ==
LOC: N.ED 10:21 → N.EDINP 10:21 → N.2E 15:05
PROVIDERS: ADMIT Family Medicine; ATTEND Family Medicine

== ENCOUNTER 2018-11-03 09:53 | Observation (INO) ==
[2018-11-03] MEDS ORDERED: SODIUM CHLORIDE 0.9% 500 ML IV STA (10:24)
[2018-11-03 11:05] LABS: Basophils # 0.1 10*3/uL (0.0-0.2); Basophils % 0.8 % (0.0-0.8); Eosinophils # 0.2 10*3/uL (0.0-0.87); Hematocrit 40.3 VOL% (35.7-47.0); Hemoglobin 12.7 GM/DL (12.0-16.0); Immature Granulocytes % 0.5 %; Immature Granulocytes Absolute 0.04 #; Lymphocytes # 1.1 10*3/uL (1.4-4.0); Lymphocytes % 14.3 % (21.3-54.2); Mean Corpuscular HGB Conc 31.5 GM/DL (32-36); Mean Corpuscular Hemoglobin 28 PG (27-34); Mean Corpuscular Volume 88.8 FL (87-102); Mean Platelet Volume 11.4 FL (9.6-12.0); Monocytes # 0.5 10*3/uL (0.11-0.8); Monocytes % 7.3 % (1.7-12.7); Neutrophils # 5.4 10*3/uL (1.4-7.4); Neutrophils % 74.1 % (38.7-73.9); Platelet Count 284 T/CUMM (130-400); Red Blood Count 4.54 MC/CUMM (3.8-5.5); Red Cell Distribution Width 12.7 % (9.3-17.3); White Blood Count 7.4 T/CUMM (4-12)
[2018-11-03 11:30] LABS: Alanine Aminotransferase 14 U/L (13-56); Albumin 3.8 G/DL (3.4-5.0); Alkaline Phosphatase 89 U/L (45-117); Aspartate Amino Transferase 16 U/L (0-37); Bilirubin,Total < 0.39 MG/DL (0.2-1.0); Blood Urea Nitrogen 24 MG/DL (7-18); Glucose 138 MG/DL (74-106); Potassium 4.3 MMOL/L (3.5-5.1); Sodium 143 MMOL/L (136-145)
[2018-11-03 11:48] LABS: Apearance,Urine CLEAR (Clear); Bilirubin,Urine Negative (Negative); Blood, Urine Negative (Negative); Glucose,Urine (UA) Negative (Negative); Ketones,Urine Negative (Negative); Mucus,Urine Occasional /LPF (Occasional); Nitrite,Urine Negative (Negative); Protein,Urine 100 MG/DL; RBC,Urine 3 /HPF (0-4); Urine Color Straw (Yellow); Urine Specific Gravity 1.009 (1.001-1.035); Urine Urobilinogen < 2.0 EU/DL (0.2-1.0); WBC,Urine <1 /HPF (0-6)
[2018-11-03] MEDS ORDERED: ONDANSETRON 4 MG/2 ML VIAL IV PRN (12:02)
[2018-11-03] MEDS ORDERED: GLUCAGON 1 MG VIAL IM PRN (12:04)
[2018-11-03] MEDS ORDERED: DEXTROSE 50% 25 GM/50 ML SYRINGE IV PRN (12:04)
[2018-11-03] MEDS ORDERED: SODIUM CHLORIDE 0.9% 1,000 ML IV SCH (12:30)
[2018-11-03] MEDS: ENOXAPARIN 40 MG/0.4 ML SYRINGE SUBCUT SCH (16:23)
[2018-11-03] MEDS: ACETAMINOPHEN 325 MG TABLET PO PRN (16:24)
[2018-11-03] MEDS ORDERED: ALBUTEROL 2.5 MG/3 ML NEB RESP TX PRN (17:19)
[2018-11-03] MEDS ORDERED: cloNIDine 0.1 MG TABLET PO PRN (17:29)
[2018-11-03] MEDS: INSULIN LISPRO 100 UNIT/ML SUBCUT SCH ×2 (18:12→21:29)
[2018-11-03 18:24] LABS: Folate > 24.0 NG/ML (5.4-24.0); Vitamin B12 593 PG/ML (211-911)
[2018-11-03] MEDS ORDERED: POLYETHYLENE GLYCOL POWDER 17 GM PACK PO SCH (19:00)
[2018-11-03] MEDS: DOCUSATE SODIUM 100 MG CAPSULE PO SCH (21:29)
[2018-11-03] MEDS: DICYCLOMINE 10 MG CAPSULE PO SCH (21:29)
[2018-11-03] MEDS: FLUTICASONE/SALMETEROL 250-50 DISKUS 14 DOSE INH SCH (21:29)
[2018-11-03] MEDS: glipiZIDE 10 MG TABLET PO SCH (21:29)
[2018-11-03] MEDS: FERROUS SULFATE 325 MG TABLET PO SCH (21:29)
[2018-11-03] MEDS: GEMFIBROZIL 600 MG TABLET PO SCH (21:30)
[2018-11-03] MEDS: GABAPENTIN 300 MG CAPSULE PO SCH (21:30)
[2018-11-03] MEDS: POLYETHYLENE GLYCOL POWDER 17 GM PACK PO SCH (21:30)
[2018-11-04] MEDS: INSULIN LISPRO 100 UNIT/ML SUBCUT SCH (08:13)
[2018-11-04] MEDS: ASCORBIC ACID 500 MG TABLET PO SCH (08:14)
[2018-11-04] MEDS: FERROUS SULFATE 325 MG TABLET PO SCH ×2 (08:14→21:08)
[2018-11-04] MEDS: hydroCHLOROthiazide 25 MG TABLET PO SCH (08:14)
[2018-11-04] MEDS: DOCUSATE SODIUM 100 MG CAPSULE PO SCH ×2 (08:14→21:08)
[2018-11-04] MEDS: GEMFIBROZIL 600 MG TABLET PO SCH ×2 (08:14→21:08)
[2018-11-04] MEDS: DICYCLOMINE 10 MG CAPSULE PO SCH ×2 (08:14→21:07)
[2018-11-04] MEDS: ACETAMINOPHEN 325 MG TABLET PO PRN ×2 (08:15→21:07)
[2018-11-04] MEDS: PANTOPRAZOLE 40 MG TABLET PO SCH (08:15)
[2018-11-04] MEDS: glipiZIDE 10 MG TABLET PO SCH ×2 (08:15→21:08)
[2018-11-04] MEDS: ASPIRIN EC 81 MG TABLET PO SCH (08:21)
[2018-11-04] MEDS: FLUTICASONE/SALMETEROL 250-50 DISKUS 14 DOSE INH SCH ×2 (08:22→21:08)
[2018-11-04] MEDS: GABAPENTIN 300 MG CAPSULE PO SCH ×2 (08:22→21:08)
[2018-11-04] MEDS ORDERED: OMEPRAZOLE 80 MG PO SCH (09:00)
[2018-11-04] MEDS: ENOXAPARIN 40 MG/0.4 ML SYRINGE SUBCUT SCH (13:33)
[2018-11-04] MEDS: OLMESARTAN 20 MG TABLET PO SCH (15:54)
[2018-11-04] MEDS: metFORMIN 500 MG TABLET PO SCH (17:07)
[2018-11-04] MEDS: POLYETHYLENE GLYCOL POWDER 17 GM PACK PO SCH (21:08)
[2018-11-05] MEDS ORDERED: KETOROLAC 30 MG/1 ML VIAL IV ONE (08:58)
[2018-11-05] MEDS: GEMFIBROZIL 600 MG TABLET PO SCH ×2 (09:03→20:06)
[2018-11-05] MEDS: FLUTICASONE/SALMETEROL 250-50 DISKUS 14 DOSE INH SCH ×2 (09:03→20:06)
[2018-11-05] MEDS: OLMESARTAN 20 MG TABLET PO SCH (09:04)
[2018-11-05] MEDS: PANTOPRAZOLE 40 MG TABLET PO SCH (09:04)
[2018-11-05] MEDS: ASCORBIC ACID 500 MG TABLET PO SCH (09:04)
[2018-11-05] MEDS: DICYCLOMINE 10 MG CAPSULE PO SCH ×2 (09:04→20:06)
[2018-11-05] MEDS: glipiZIDE 10 MG TABLET PO SCH ×2 (09:04→20:06)
[2018-11-05] MEDS: hydroCHLOROthiazide 25 MG TABLET PO SCH (09:04)
[2018-11-05] MEDS: DOCUSATE SODIUM 100 MG CAPSULE PO SCH ×2 (09:04→20:06)
[2018-11-05] MEDS: ASPIRIN EC 81 MG TABLET PO SCH (09:04)
[2018-11-05] MEDS: FERROUS SULFATE 325 MG TABLET PO SCH ×2 (09:04→20:06)
[2018-11-05] MEDS: GABAPENTIN 300 MG CAPSULE PO SCH ×2 (09:04→20:06)
[2018-11-05] MEDS: ENOXAPARIN 40 MG/0.4 ML SYRINGE SUBCUT SCH (12:30)
[2018-11-05] MEDS: metFORMIN 500 MG TABLET PO SCH (16:21)
[2018-11-05] MEDS: ALBUTEROL 2.5 MG/3 ML NEB RESP TX PRN ×2 (16:59→23:10)
[2018-11-05] MEDS: POLYETHYLENE GLYCOL POWDER 17 GM PACK PO SCH (20:06)
[2018-11-05] MEDS: ACETAMINOPHEN 325 MG TABLET PO PRN (20:07)
[2018-11-06 05:05] LABS: Basophils % 0.6 % (0.0-0.8); Eosinophils # 0.2 10*3/uL (0.0-0.87); Eosinophils % 3.2 % (0.00-10.9); Hematocrit 32.6 VOL% (35.7-47.0); Hemoglobin 10.4 GM/DL (12.0-16.0); Immature Granulocytes % 0.3 %; Immature Granulocytes Absolute 0.02 #; Lymphocytes # 1.4 10*3/uL (1.4-4.0); Lymphocytes % 22.5 % (21.3-54.2); Mean Corpuscular HGB Conc 31.9 GM/DL (32-36); Mean Corpuscular Hemoglobin 28 PG (27-34); Mean Corpuscular Volume 89.1 FL (87-102); Mean Platelet Volume 11.9 FL (9.6-12.0); Monocytes # 0.7 10*3/uL (0.11-0.8); Monocytes % 11.2 % (1.7-12.7); Neutrophils # 3.9 10*3/uL (1.4-7.4); Neutrophils % 62.2 % (38.7-73.9); Platelet Count 232 T/CUMM (130-400); Red Blood Count 3.66 MC/CUMM (3.8-5.5); Red Cell Distribution Width 12.8 % (9.3-17.3); White Blood Count 6.2 T/CUMM (4-12)
[2018-11-06 05:27] LABS: Calcium 8.4 MG/DL (8.5-10.1); Osmolality,Calculated 283.7 MOS/KG (273-304); Potassium 4.2 MMOL/L (3.5-5.1)
[2018-11-06] MEDS: DOCUSATE SODIUM 100 MG CAPSULE PO SCH ×2 (09:01→20:21)
[2018-11-06] MEDS: ASPIRIN EC 81 MG TABLET PO SCH (09:01)
[2018-11-06] MEDS: PANTOPRAZOLE 40 MG TABLET PO SCH (09:01)
[2018-11-06] MEDS: glipiZIDE 10 MG TABLET PO SCH ×2 (09:01→20:22)
[2018-11-06] MEDS: FERROUS SULFATE 325 MG TABLET PO SCH ×2 (09:01→20:22)
[2018-11-06] MEDS: GEMFIBROZIL 600 MG TABLET PO SCH ×2 (09:01→20:22)
[2018-11-06] MEDS: ASCORBIC ACID 500 MG TABLET PO SCH (09:01)
[2018-11-06] MEDS: FLUTICASONE/SALMETEROL 250-50 DISKUS 14 DOSE INH SCH ×2 (09:01→20:23)
[2018-11-06] MEDS: GABAPENTIN 300 MG CAPSULE PO SCH ×2 (09:02→20:22)
[2018-11-06] MEDS: OLMESARTAN 20 MG TABLET PO SCH (09:02)
[2018-11-06] MEDS: hydroCHLOROthiazide 25 MG TABLET PO SCH (09:02)
[2018-11-06] MEDS: DICYCLOMINE 10 MG CAPSULE PO SCH ×2 (09:02→20:22)
[2018-11-06] MEDS: ENOXAPARIN 40 MG/0.4 ML SYRINGE SUBCUT SCH (12:16)
[2018-11-06] MEDS: metFORMIN 500 MG TABLET PO SCH (17:27)
[2018-11-06] MEDS: ALBUTEROL 2.5 MG/3 ML NEB RESP TX PRN (20:13)
[2018-11-06] MEDS: POLYETHYLENE GLYCOL POWDER 17 GM PACK PO SCH (20:23)
[2018-11-06] MEDS: ACETAMINOPHEN 325 MG TABLET PO PRN (22:16)
[2018-11-07 05:15] LABS: Basophils # 0.1 10*3/uL (0.0-0.2); Basophils % 0.7 % (0.0-0.8); Eosinophils # 0.3 10*3/uL (0.0-0.87); Eosinophils % 3.7 % (0.00-10.9); Hematocrit 32.2 VOL% (35.7-47.0); Hemoglobin 10.1 GM/DL (12.0-16.0); Immature Granulocytes % 0.1 %; Immature Granulocytes Absolute 0.01 #; Lymphocytes # 1.5 10*3/uL (1.4-4.0); Lymphocytes % 21.1 % (21.3-54.2); Mean Corpuscular HGB Conc 31.4 GM/DL (32-36); Mean Corpuscular Hemoglobin 28 PG (27-34); Mean Corpuscular Volume 90.2 FL (87-102); Mean Platelet Volume 12.1 FL (9.6-12.0); Monocytes # 0.8 10*3/uL (0.11-0.8); Monocytes % 10.8 % (1.7-12.7); Neutrophils # 4.5 10*3/uL (1.4-7.4); Neutrophils % 63.6 % (38.7-73.9); Platelet Count 224 T/CUMM (130-400); Red Blood Count 3.57 MC/CUMM (3.8-5.5); Red Cell Distribution Width 12.8 % (9.3-17.3); White Blood Count 7.1 T/CUMM (4-12)
[2018-11-07 05:29] LABS: Alanine Aminotransferase 13 U/L (13-56); Albumin 2.6 G/DL (3.4-5.0); Alkaline Phosphatase 71 U/L (45-117); Aspartate Amino Transferase 12 U/L (0-37); Bilirubin,Total < 0.39 MG/DL (0.2-1.0); Blood Urea Nitrogen 39 MG/DL (7-18); Calcium 8.1 MG/DL (8.5-10.1); Glucose 72 MG/DL (74-106); Osmolality,Calculated 282.7 MOS/KG (273-304); Potassium 4.3 MMOL/L (3.5-5.1); Sodium 138 MMOL/L (136-145); Total Protein 5.9 G/DL (6.4-8.3)
[2018-11-07 08:11] VITALS: BP 130/58
[2018-11-07] MEDS: hydroCHLOROthiazide 25 MG TABLET PO SCH (08:56)
[2018-11-07] MEDS: glipiZIDE 10 MG TABLET PO SCH (08:57)
[2018-11-07] MEDS: DOCUSATE SODIUM 100 MG CAPSULE PO SCH (08:57)
[2018-11-07] MEDS: ASCORBIC ACID 500 MG TABLET PO SCH (08:57)
[2018-11-07] MEDS: GABAPENTIN 300 MG CAPSULE PO SCH (08:57)
[2018-11-07] MEDS: PANTOPRAZOLE 40 MG TABLET PO SCH (08:58)
[2018-11-07] MEDS: FERROUS SULFATE 325 MG TABLET PO SCH (08:58)
[2018-11-07] MEDS: GEMFIBROZIL 600 MG TABLET PO SCH (08:58)
[2018-11-07] MEDS: ASPIRIN EC 81 MG TABLET PO SCH (08:58)
[2018-11-07] MEDS ORDERED: cloNIDine 0.1 MG TABLET PO SCH (09:00)
[2018-11-07] MEDS: FLUTICASONE/SALMETEROL 250-50 DISKUS 14 DOSE INH SCH (09:00)
[2018-11-07] MEDS: DICYCLOMINE 10 MG CAPSULE PO SCH (09:08)
[2018-11-07] MEDS ORDERED: ENOXAPARIN 30 MG/0.3 ML SYRINGE SUBCUT SCH (12:00)
== END 2018-11-07 09:57 | disposition home or self-care (01) ==
LOC: N.ED 09:53 → N.EDINP 09:53 → N.TELEN 15:24
PROVIDERS: ADMIT Family Medicine; ATTEND Family Medicine

== ENCOUNTER 2019-03-09 09:57 | Inpatient (IN) ==
[2019-03-09] MEDS ORDERED: PANTOPRAZOLE 40 MG VIAL IV STA (10:31)
[2019-03-09] MEDS ORDERED: SODIUM CHLORIDE 0.9% 500 ML IV STA (10:31)
[2019-03-09] MEDS ORDERED: HYDROmorphone 2 MG/1 ML VIAL IV STA (10:31)
[2019-03-09] MEDS ORDERED: ONDANSETRON 4 MG/2 ML VIAL IV STA (10:31)
[2019-03-09] MEDS ORDERED: FUROSEMIDE 40 MG/4 ML VIAL IV STA (10:31)
[2019-03-09] MEDS ORDERED: ALBUTEROL/IPRATROPIUM 3 ML NEB RESP TX STA (10:31)
[2019-03-09 10:56] LABS: Basophils # 0.1 10*3/uL (0.0-0.2); Basophils % 0.4 % (0.0-0.8); Eosinophils # 0.3 10*3/uL (0.0-0.87); Eosinophils % 1.9 % (0.00-10.9); Hematocrit 36.9 VOL% (35.7-47.0); Hemoglobin 11.6 GM/DL (12.0-16.0); Immature Granulocytes % 0.5 %; Immature Granulocytes Absolute 0.08 #; Lymphocytes # 1.2 10*3/uL (1.4-4.0); Lymphocytes % 6.6 % (21.3-54.2); Mean Corpuscular HGB Conc 31.4 GM/DL (32-36); Mean Corpuscular Volume 90.2 FL (87-102); Mean Platelet Volume 11.3 FL (9.6-12.0); Neutrophils % 84.6 % (38.7-73.9); Platelet Count 288 T/CUMM (130-400); Red Blood Count 4.09 MC/CUMM (3.8-5.5); White Blood Count 17.7 T/CUMM (4-12)
[2019-03-09 11:29] LABS: Alanine Aminotransferase 15 U/L (13-56); Albumin 3.7 G/DL (3.4-5.0); Alkaline Phosphatase 82 U/L (45-117); Amylase 79 U/L (25-115); Aspartate Amino Transferase 16 U/L (0-37); Bilirubin,Total < 0.39 MG/DL (0.2-1.0); Blood Urea Nitrogen 19 MG/DL (7-18); Calcium 8.7 MG/DL (8.5-10.1); Glucose 99 MG/DL (74-106); Osmolality,Calculated 278.5 MOS/KG (273-304); Total Protein 6.6 G/DL (6.4-8.3)
[2019-03-09] MEDS ORDERED: CEFTAROLINE 600 MG in SODIUM CHLORIDE 0.9% 100 ML IV STA (12:38)
[2019-03-09 14:40] LABS: Apearance,Urine CLEAR (Clear); Bilirubin,Urine Negative (Negative); Blood, Urine Negative (Negative); Glucose,Urine (UA) Negative (Negative); Ketones,Urine Negative (Negative); Nitrite,Urine Negative (Negative); Protein,Urine Negative; RBC,Urine 1 /HPF (0-4); Urine Color Colorless (Yellow); Urine Specific Gravity 1.011 (1.001-1.035); Urine Urobilinogen < 2.0 EU/DL (0.2-1.0); WBC,Urine <1 /HPF (0-6)
[2019-03-09] MEDS ORDERED: GLUCAGON 1 MG VIAL IM PRN (15:32)
[2019-03-09] MEDS ORDERED: ONDANSETRON 4 MG TABLET PO PRN (15:32)
[2019-03-09] MEDS ORDERED: DEXTROSE 50% 25 GM/50 ML VIAL IV PRN (15:32)
[2019-03-09] MEDS ORDERED: MORPHINE 4 MG/1 ML VIAL IV PRN (15:32)
[2019-03-09] MEDS ORDERED: ALBUTEROL 2.5 MG/3 ML NEB RESP TX PRN ×2 (15:32)
[2019-03-09] MEDS: ALBUTEROL/IPRATROPIUM 3 ML NEB RESP TX SCH ×3 (16:03→22:55)
[2019-03-09] MEDS ORDERED: metFORMIN 500 MG TABLET PO SCH (17:00)
[2019-03-09] MEDS: FUROSEMIDE 20 MG/2 ML VIAL IV SCH (18:40)
[2019-03-09] MEDS: SODIUM CHLORIDE 0.9% 1,000 ML IV SCH (18:44)
[2019-03-09] MEDS ORDERED: POLYETHYLENE GLYCOL POWDER 17 GM PACK PO SCH (19:00)
[2019-03-09] MEDS: metroNIDAZOLE 250 MG TABLET PO SCH ×2 (19:00→20:57)
[2019-03-09] MEDS: INSULIN REGULAR 100 UNIT/ML SUBCUT SCH (19:11)
[2019-03-09] MEDS: ACETAMINOPHEN 325 MG TABLET PO PRN (19:38)
[2019-03-09] MEDS: glipiZIDE 10 MG TABLET PO SCH (20:56)
[2019-03-09] MEDS: TERAZOSIN 1 MG CAPSULE PO SCH (20:57)
[2019-03-09] MEDS: GEMFIBROZIL 600 MG TABLET PO SCH (20:57)
[2019-03-09] MEDS: GABAPENTIN 600 MG TABLET PO SCH (20:57)
[2019-03-09] MEDS: DICYCLOMINE 10 MG CAPSULE PO SCH (20:57)
[2019-03-09] MEDS: FERROUS SULFATE 325 MG TABLET PO SCH (20:57)
[2019-03-09] MEDS: ENOXAPARIN 30 MG/0.3 ML SYRINGE SUBCUT SCH (20:57)
[2019-03-09] MEDS: DOCUSATE SODIUM 100 MG CAPSULE PO SCH (20:57)
[2019-03-09] MEDS: FLUTICASONE/SALMETEROL 250-50 DISKUS 14 DOSE INH SCH (20:57)
[2019-03-09] MEDS: PANTOPRAZOLE 40 MG TABLET PO SCH (21:29)
[2019-03-10] MEDS: INSULIN REGULAR 100 UNIT/ML SUBCUT SCH ×4 (01:05→18:26)
[2019-03-10] MEDS: CEFTAROLINE 400 MG in SODIUM CHLORIDE 0.9% 100 ML IV SCH ×2 (01:08→13:22)
[2019-03-10] MEDS: ALBUTEROL/IPRATROPIUM 3 ML NEB RESP TX SCH ×6 (02:18→23:58)
[2019-03-10 05:16] LABS: Basophils # 0.1 10*3/uL (0.0-0.2); Basophils % 0.4 % (0.0-0.8); Eosinophils # 0.2 10*3/uL (0.0-0.87); Eosinophils % 1.7 % (0.00-10.9); Hematocrit 32.2 VOL% (35.7-47.0); Hemoglobin 9.9 GM/DL (12.0-16.0); Immature Granulocytes % 0.4 %; Immature Granulocytes Absolute 0.05 #; Lymphocytes % 8.4 % (21.3-54.2); Mean Corpuscular HGB Conc 30.7 GM/DL (32-36); Mean Corpuscular Volume 91.2 FL (87-102); Mean Platelet Volume 12.1 FL (9.6-12.0); Monocytes % 8.1 % (1.7-12.7); Platelet Count 227 T/CUMM (130-400); Red Blood Count 3.53 MC/CUMM (3.8-5.5); Red Cell Distribution Width 13.1 % (9.3-17.3)
[2019-03-10 05:25] LABS: Alanine Aminotransferase 11 U/L (13-56); Albumin 2.9 G/DL (3.4-5.0); Alkaline Phosphatase 65 U/L (45-117); Aspartate Amino Transferase 12 U/L (0-37); Bilirubin,Total < 0.39 MG/DL (0.2-1.0); Blood Urea Nitrogen 23 MG/DL (7-18); Calcium 8.1 MG/DL (8.5-10.1); Glucose 166 MG/DL (74-106); Osmolality,Calculated 282.7 MOS/KG (273-304); Total Protein 5.8 G/DL (6.4-8.3)
[2019-03-10] MEDS ORDERED: ASPIRIN CHEW 81 MG TABLET PO ONE (07:51)
[2019-03-10] MEDS: TERAZOSIN 1 MG CAPSULE PO SCH ×2 (08:28→20:16)
[2019-03-10] MEDS: FLUTICASONE/SALMETEROL 250-50 DISKUS 14 DOSE INH SCH ×2 (08:28→20:16)
[2019-03-10] MEDS: FERROUS SULFATE 325 MG TABLET PO SCH ×2 (08:29→20:16)
[2019-03-10] MEDS: PANTOPRAZOLE 40 MG TABLET PO SCH (08:29)
[2019-03-10] MEDS: GEMFIBROZIL 600 MG TABLET PO SCH ×2 (08:29→20:16)
[2019-03-10] MEDS: MULTIVITAMIN (CENTRUM) TABLET PO SCH (08:29)
[2019-03-10] MEDS: DOCUSATE SODIUM 100 MG CAPSULE PO SCH ×2 (08:30→20:16)
[2019-03-10] MEDS: ASCORBIC ACID 500 MG TABLET PO SCH (08:30)
[2019-03-10] MEDS: metroNIDAZOLE 250 MG TABLET PO SCH ×3 (08:31→20:16)
[2019-03-10] MEDS: DICYCLOMINE 10 MG CAPSULE PO SCH ×2 (08:31→20:16)
[2019-03-10] MEDS: GABAPENTIN 600 MG TABLET PO SCH ×2 (08:31→20:16)
[2019-03-10] MEDS: FUROSEMIDE 20 MG/2 ML VIAL IV SCH (08:33)
[2019-03-10] MEDS ORDERED: PANTOPRAZOLE 40 MG TABLET PO SCH (09:00)
[2019-03-10] MEDS ORDERED: hydroCHLOROthiazide 25 MG TABLET PO SCH (09:00)
[2019-03-10] MEDS: ASPIRIN EC 81 MG TABLET PO SCH (10:21)
[2019-03-10] MEDS: ACIDOPHILUS PROBIOTIC PO SCH (11:07)
[2019-03-10] MEDS: SODIUM CHLORIDE 0.9% 1,000 ML IV SCH (11:55)
[2019-03-10] MEDS ORDERED: LACTOBACILLUS ACIDOPHILUS/BULGARICUS CHEW TABLET PO SCH (15:00)
[2019-03-10] MEDS: metFORMIN 500 MG TABLET PO SCH (17:16)
[2019-03-10] MEDS: ACETAMINOPHEN 325 MG TABLET PO PRN ×2 (17:19→22:46)
[2019-03-10] MEDS: glipiZIDE 10 MG TABLET PO SCH (20:16)
[2019-03-10] MEDS: ENOXAPARIN 30 MG/0.3 ML SYRINGE SUBCUT SCH (20:17)
[2019-03-11] MEDS: INSULIN REGULAR 100 UNIT/ML SUBCUT SCH ×4 (00:53→18:34)
[2019-03-11] MEDS: CEFTAROLINE 400 MG in SODIUM CHLORIDE 0.9% 100 ML IV SCH ×2 (01:05→12:44)
[2019-03-11] MEDS: ONDANSETRON 4 MG/2 ML VIAL IV PRN ×2 (01:56→08:50)
[2019-03-11] MEDS: ALBUTEROL/IPRATROPIUM 3 ML NEB RESP TX SCH ×6 (02:25→23:47)
[2019-03-11] MEDS ORDERED: FUROSEMIDE 40 MG/4 ML VIAL IV ONE (03:59)
[2019-03-11] MEDS: SODIUM CHLORIDE 0.9% 1,000 ML IV SCH (07:11)
[2019-03-11] MEDS: FLUTICASONE/SALMETEROL 250-50 DISKUS 14 DOSE INH SCH ×2 (07:59→20:25)
[2019-03-11] MEDS: ACIDOPHILUS PROBIOTIC PO SCH (07:59)
[2019-03-11] MEDS: FERROUS SULFATE 325 MG TABLET PO SCH ×2 (08:00→20:25)
[2019-03-11] MEDS: metFORMIN 500 MG TABLET PO SCH (08:00)
[2019-03-11] MEDS: GABAPENTIN 600 MG TABLET PO SCH ×2 (08:00→20:25)
[2019-03-11] MEDS: GEMFIBROZIL 600 MG TABLET PO SCH ×2 (08:01→20:25)
[2019-03-11] MEDS: metroNIDAZOLE 250 MG TABLET PO SCH ×3 (08:01→20:25)
[2019-03-11] MEDS: ASPIRIN EC 81 MG TABLET PO SCH (08:02)
[2019-03-11] MEDS: MULTIVITAMIN (CENTRUM) TABLET PO SCH (08:02)
[2019-03-11] MEDS: PANTOPRAZOLE 40 MG TABLET PO SCH (08:02)
[2019-03-11] MEDS: DOCUSATE SODIUM 100 MG CAPSULE PO SCH ×2 (08:02→20:25)
[2019-03-11] MEDS: TERAZOSIN 1 MG CAPSULE PO SCH ×2 (08:02→20:25)
[2019-03-11] MEDS: DICYCLOMINE 10 MG CAPSULE PO SCH ×2 (08:02→20:25)
[2019-03-11] MEDS: ASCORBIC ACID 500 MG TABLET PO SCH (08:02)
[2019-03-11] MEDS ORDERED: FUROSEMIDE 20 MG/2 ML VIAL IV SCH (09:00)
[2019-03-11] MEDS: NYSTATIN 500,000 UNIT/5 ML UDCUP SWISH/SWAL SCH ×3 (12:49→20:25)
[2019-03-11] MEDS: FUROSEMIDE 20 MG/2 ML VIAL IV SCH (15:32)
[2019-03-11] MEDS: glipiZIDE 10 MG TABLET PO SCH (20:25)
[2019-03-11] MEDS: ENOXAPARIN 30 MG/0.3 ML SYRINGE SUBCUT SCH (20:25)
[2019-03-12] MEDS: CEFTAROLINE 400 MG in SODIUM CHLORIDE 0.9% 100 ML IV SCH (00:06)
[2019-03-12] MEDS: INSULIN REGULAR 100 UNIT/ML SUBCUT SCH ×4 (00:08→17:21)
[2019-03-12] MEDS: ALBUTEROL/IPRATROPIUM 3 ML NEB RESP TX SCH ×5 (03:10→19:29)
[2019-03-12 05:42] LABS: Basophils # 0.1 10*3/uL (0.0-0.2); Basophils % 0.5 % (0.0-0.8); Eosinophils # 0.3 10*3/uL (0.0-0.87); Hematocrit 28.8 VOL% (35.7-47.0); Hemoglobin 9.1 GM/DL (12.0-16.0); Immature Granulocytes % 0.3 %; Immature Granulocytes Absolute 0.03 #; Lymphocytes # 0.9 10*3/uL (1.4-4.0); Lymphocytes % 9.8 % (21.3-54.2); Mean Corpuscular HGB Conc 31.6 GM/DL (32-36); Mean Corpuscular Volume 88.9 FL (87-102); Mean Platelet Volume 12.2 FL (9.6-12.0); Monocytes % 8.9 % (1.7-12.7); Neutrophils % 77.5 % (38.7-73.9); Platelet Count 223 T/CUMM (130-400); Red Blood Count 3.24 MC/CUMM (3.8-5.5); Red Cell Distribution Width 13.1 % (9.3-17.3); White Blood Count 9.4 T/CUMM (4-12)
[2019-03-12 05:57] LABS: Calcium 8.4 MG/DL (8.5-10.1); Osmolality,Calculated 275.1 MOS/KG (273-304)
[2019-03-12] MEDS: cefTRIAXone 1,000 MG in SYRINGE 1 EACH IV SCH (08:52)
[2019-03-12] MEDS: FUROSEMIDE 20 MG/2 ML VIAL IV SCH ×2 (08:53→16:56)
[2019-03-12] MEDS: NYSTATIN 500,000 UNIT/5 ML UDCUP SWISH/SWAL SCH ×4 (08:53→20:45)
[2019-03-12] MEDS: methylPREDNISolone SOD SUC 40 MG/1 ML VIAL IV SCH ×2 (08:53→16:55)
[2019-03-12] MEDS: MULTIVITAMIN (CENTRUM) TABLET PO SCH (08:54)
[2019-03-12] MEDS: PANTOPRAZOLE 40 MG TABLET PO SCH (08:54)
[2019-03-12] MEDS: GEMFIBROZIL 600 MG TABLET PO SCH ×2 (08:54→20:43)
[2019-03-12] MEDS: GABAPENTIN 600 MG TABLET PO SCH ×2 (08:54→20:41)
[2019-03-12] MEDS: ASCORBIC ACID 500 MG TABLET PO SCH (08:54)
[2019-03-12] MEDS: DICYCLOMINE 10 MG CAPSULE PO SCH ×2 (08:54→20:45)
[2019-03-12] MEDS: FLUTICASONE/SALMETEROL 250-50 DISKUS 14 DOSE INH SCH ×2 (08:54→20:45)
[2019-03-12] MEDS: FERROUS SULFATE 325 MG TABLET PO SCH ×2 (08:54→20:41)
[2019-03-12] MEDS: DOCUSATE SODIUM 100 MG CAPSULE PO SCH ×2 (08:54→20:43)
[2019-03-12] MEDS: ASPIRIN EC 81 MG TABLET PO SCH (08:54)
[2019-03-12] MEDS: ACIDOPHILUS PROBIOTIC PO SCH (09:05)
[2019-03-12] MEDS: TERAZOSIN 1 MG CAPSULE PO SCH ×2 (09:07→20:44)
[2019-03-12] MEDS: glipiZIDE 10 MG TABLET PO SCH (20:42)
[2019-03-12] MEDS: ACETAMINOPHEN 325 MG TABLET PO PRN (20:43)
[2019-03-13] MEDS: ALBUTEROL/IPRATROPIUM 3 ML NEB RESP TX SCH ×7 (00:09→23:39)
[2019-03-13] MEDS: INSULIN REGULAR 100 UNIT/ML SUBCUT SCH ×4 (00:43→17:44)
[2019-03-13] MEDS: methylPREDNISolone SOD SUC 40 MG/1 ML VIAL IV SCH ×3 (01:53→17:20)
[2019-03-13 06:14] LABS: Basophils % 0.2 % (0.0-0.8); Hematocrit 30.5 VOL% (35.7-47.0); Hemoglobin 9.7 GM/DL (12.0-16.0); Immature Granulocytes % 0.6 %; Immature Granulocytes Absolute 0.04 #; Lymphocytes # 0.3 10*3/uL (1.4-4.0); Lymphocytes % 4.4 % (21.3-54.2); Mean Corpuscular HGB Conc 31.8 GM/DL (32-36); Mean Corpuscular Volume 88.4 FL (87-102); Mean Platelet Volume 11.9 FL (9.6-12.0); Monocytes % 2.8 % (1.7-12.7); Platelet Count 244 T/CUMM (130-400); Red Blood Count 3.45 MC/CUMM (3.8-5.5); Red Cell Distribution Width 12.8 % (9.3-17.3); White Blood Count 6.4 T/CUMM (4-12)
[2019-03-13 06:41] LABS: Eosinophils 1 % (0-10); Hypochromasia 1+; Lymphocytes 2 % (20-55); Platelet Estimate Adequate; Segmented Neutrophils 93 % (50-85); Total Cells Counted 100
[2019-03-13 06:42] LABS: Albumin 3.1 G/DL (3.4-5.0); Bilirubin,Total 0.9 MG/DL (0.2-1.0); Calcium 8.7 MG/DL (8.5-10.1); Osmolality,Calculated 285.4 MOS/KG (273-304); Total Protein 6.7 G/DL (6.4-8.3)
[2019-03-13] MEDS ORDERED: LACTATED RINGERS 1,000 ML IV SCH (08:00)
[2019-03-13] MEDS: FUROSEMIDE 20 MG/2 ML VIAL IV SCH ×2 (08:28→15:52)
[2019-03-13] MEDS: cefTRIAXone 1,000 MG in SYRINGE 1 EACH IV SCH (08:31)
[2019-03-13] MEDS: FLUTICASONE/SALMETEROL 250-50 DISKUS 14 DOSE INH SCH ×2 (08:38→21:46)
[2019-03-13] MEDS: SODIUM CHLORIDE 0.45% 1,000 ML IV SCH (08:42)
[2019-03-13] MEDS ORDERED: LIDOCAINE 1% 5 ML VIAL ONE (09:00)
[2019-03-13] MEDS ORDERED: PROPOFOL 200 MG/20 ML VIAL IV ONE (09:00)
[2019-03-13] MEDS ORDERED: AZITHROMYCIN 250 MG TABLET PO ONE ×2 (09:00→16:00)
[2019-03-13] MEDS: FERROUS SULFATE 325 MG TABLET PO SCH ×2 (11:25→21:45)
[2019-03-13] MEDS: GEMFIBROZIL 600 MG TABLET PO SCH ×2 (11:25→21:45)
[2019-03-13] MEDS: DOCUSATE SODIUM 100 MG CAPSULE PO SCH ×2 (11:25→21:45)
[2019-03-13] MEDS: DICYCLOMINE 10 MG CAPSULE PO SCH ×2 (11:28→21:45)
[2019-03-13] MEDS: NYSTATIN 500,000 UNIT/5 ML UDCUP SWISH/SWAL SCH ×4 (11:34→21:46)
[2019-03-13] MEDS: TERAZOSIN 1 MG CAPSULE PO SCH ×2 (15:20→21:45)
[2019-03-13] MEDS: ASCORBIC ACID 500 MG TABLET PO SCH (15:51)
[2019-03-13] MEDS: ASPIRIN EC 81 MG TABLET PO SCH (15:52)
[2019-03-13] MEDS: MULTIVITAMIN (CENTRUM) TABLET PO SCH (15:52)
[2019-03-13] MEDS: PANTOPRAZOLE 40 MG TABLET PO SCH (15:52)
[2019-03-13] MEDS: GABAPENTIN 600 MG TABLET PO SCH ×2 (15:52→21:45)
[2019-03-13] MEDS: ACIDOPHILUS PROBIOTIC PO SCH (15:52)
[2019-03-13] MEDS: glipiZIDE 10 MG TABLET PO SCH (21:45)
[2019-03-13] MEDS: ACETAMINOPHEN 325 MG TABLET PO PRN (22:29)
[2019-03-13 23:31] LABS: CDT Result Negative (Negative); CDT Specimen Source STOOL
[2019-03-14] MEDS: INSULIN REGULAR 100 UNIT/ML SUBCUT SCH ×4 (00:48→17:04)
[2019-03-14] MEDS: methylPREDNISolone SOD SUC 40 MG/1 ML VIAL IV SCH ×3 (01:31→17:04)
[2019-03-14] MEDS: SODIUM CHLORIDE 0.45% 1,000 ML IV SCH ×2 (03:04→18:03)
[2019-03-14] MEDS: ALBUTEROL/IPRATROPIUM 3 ML NEB RESP TX SCH ×6 (03:07→23:05)
[2019-03-14] MEDS: ONDANSETRON 4 MG/2 ML VIAL IV PRN (04:31)
[2019-03-14 05:55] LABS: Basophils % 0.1 % (0.0-0.8); Hemoglobin 9.4 GM/DL (12.0-16.0); Immature Granulocytes % 0.4 %; Immature Granulocytes Absolute 0.04 #; Lymphocytes # 0.4 10*3/uL (1.4-4.0); Lymphocytes % 3.9 % (21.3-54.2); Mean Corpuscular HGB Conc 31.3 GM/DL (32-36); Mean Corpuscular Volume 89.8 FL (87-102); Mean Platelet Volume 12.1 FL (9.6-12.0); Monocytes % 3.4 % (1.7-12.7); Neutrophils % 92.2 % (38.7-73.9); Platelet Count 278 T/CUMM (130-400); Red Blood Count 3.34 MC/CUMM (3.8-5.5); Red Cell Distribution Width 12.7 % (9.3-17.3); White Blood Count 9.2 T/CUMM (4-12)
[2019-03-14 06:19] LABS: Hypochromasia 1+; Lymphocytes 2 % (20-55); Platelet Estimate Adequate; Segmented Neutrophils 96 % (50-85); Total Cells Counted 100
[2019-03-14 06:25] LABS: Albumin 3.2 G/DL (3.4-5.0); Bilirubin,Total 0.4 MG/DL (0.2-1.0); Calcium 8.6 MG/DL (8.5-10.1); Osmolality,Calculated 279.2 MOS/KG (273-304); Total Protein 6.5 G/DL (6.4-8.3)
[2019-03-14 06:30] LABS: Ferritin 79.9 ng/ml (8-252)
[2019-03-14] MEDS: DOCUSATE SODIUM 100 MG CAPSULE PO SCH ×2 (08:56→20:46)
[2019-03-14] MEDS: NYSTATIN 500,000 UNIT/5 ML UDCUP SWISH/SWAL SCH ×4 (08:56→20:46)
[2019-03-14] MEDS: GABAPENTIN 600 MG TABLET PO SCH ×2 (08:56→20:46)
[2019-03-14] MEDS: TERAZOSIN 1 MG CAPSULE PO SCH ×2 (08:56→20:46)
[2019-03-14] MEDS: FUROSEMIDE 20 MG/2 ML VIAL IV SCH ×2 (08:57→17:04)
[2019-03-14] MEDS: cefTRIAXone 1,000 MG in SYRINGE 1 EACH IV SCH (08:57)
[2019-03-14] MEDS: ASCORBIC ACID 500 MG TABLET PO SCH (08:58)
[2019-03-14] MEDS: PANTOPRAZOLE 40 MG TABLET PO SCH (08:58)
[2019-03-14] MEDS: FERROUS SULFATE 325 MG TABLET PO SCH ×2 (08:58→20:46)
[2019-03-14] MEDS: DICYCLOMINE 10 MG CAPSULE PO SCH ×2 (08:58→20:46)
[2019-03-14] MEDS: ACIDOPHILUS PROBIOTIC PO SCH (08:58)
[2019-03-14] MEDS: ASPIRIN EC 81 MG TABLET PO SCH (08:58)
[2019-03-14] MEDS: MULTIVITAMIN (CENTRUM) TABLET PO SCH (08:58)
[2019-03-14] MEDS: GEMFIBROZIL 600 MG TABLET PO SCH ×2 (08:58→20:46)
[2019-03-14] MEDS: FLUTICASONE/SALMETEROL 250-50 DISKUS 14 DOSE INH SCH ×2 (08:58→20:45)
[2019-03-14] MEDS: metroNIDAZOLE INJ 500 MG in PREMIX 1 EACH IV SCH ×2 (08:59→17:04)
[2019-03-14] MEDS: AZITHROMYCIN 250 MG TABLET PO SCH (09:00)
[2019-03-14] MEDS: glipiZIDE 10 MG TABLET PO SCH (20:46)
[2019-03-14] MEDS: ACETAMINOPHEN 325 MG TABLET PO PRN (23:15)
[2019-03-15] MEDS: INSULIN REGULAR 100 UNIT/ML SUBCUT SCH ×4 (00:01→18:21)
[2019-03-15] MEDS: methylPREDNISolone SOD SUC 40 MG/1 ML VIAL IV SCH ×3 (00:01→16:19)
[2019-03-15] MEDS: metroNIDAZOLE INJ 500 MG in PREMIX 1 EACH IV SCH (00:03)
[2019-03-15] MEDS: ALBUTEROL/IPRATROPIUM 3 ML NEB RESP TX SCH ×5 (03:00→19:27)
[2019-03-15 05:15] LABS: Basophils % 0.1 % (0.0-0.8); Hematocrit 29.6 VOL% (35.7-47.0); Hemoglobin 9.2 GM/DL (12.0-16.0); Immature Granulocytes % 0.5 %; Immature Granulocytes Absolute 0.04 #; Lymphocytes # 0.4 10*3/uL (1.4-4.0); Lymphocytes % 4.3 % (21.3-54.2); Mean Corpuscular HGB Conc 31.1 GM/DL (32-36); Mean Corpuscular Volume 91.1 FL (87-102); Mean Platelet Volume 12.3 FL (9.6-12.0); Neutrophils % 91.1 % (38.7-73.9); Platelet Count 297 T/CUMM (130-400); Red Blood Count 3.25 MC/CUMM (3.8-5.5); Red Cell Distribution Width 12.9 % (9.3-17.3); White Blood Count 8.8 T/CUMM (4-12)
[2019-03-15 05:39] LABS: Band Neutrophils 1 % (0-10); Hypochromasia 1+; Lymphocytes 7 % (20-55); Ovalocytes Slight; Platelet Estimate Adequate; Segmented Neutrophils 87 % (50-85); Total Cells Counted 100
[2019-03-15 06:03] LABS: Bilirubin,Total 0.4 MG/DL (0.2-1.0); Calcium 8.5 MG/DL (8.5-10.1); Osmolality,Calculated 290.8 MOS/KG (273-304); Total Protein 6.3 G/DL (6.4-8.3)
[2019-03-15] MEDS: metroNIDAZOLE 500 MG TABLET PO SCH ×3 (09:58→20:38)
[2019-03-15] MEDS: MULTIVITAMIN (CENTRUM) TABLET PO SCH (09:59)
[2019-03-15] MEDS: DOCUSATE SODIUM 100 MG CAPSULE PO SCH ×2 (09:59→20:38)
[2019-03-15] MEDS: GABAPENTIN 600 MG TABLET PO SCH ×2 (09:59→20:38)
[2019-03-15] MEDS: DICYCLOMINE 10 MG CAPSULE PO SCH ×2 (09:59→20:38)
[2019-03-15] MEDS: FERROUS SULFATE 325 MG TABLET PO SCH ×2 (09:59→20:38)
[2019-03-15] MEDS: ASPIRIN EC 81 MG TABLET PO SCH (09:59)
[2019-03-15] MEDS: GEMFIBROZIL 600 MG TABLET PO SCH ×2 (09:59→20:38)
[2019-03-15] MEDS: AZITHROMYCIN 250 MG TABLET PO SCH (09:59)
[2019-03-15] MEDS: NYSTATIN 500,000 UNIT/5 ML UDCUP SWISH/SWAL SCH ×4 (10:00→20:38)
[2019-03-15] MEDS: cefTRIAXone 1,000 MG in SYRINGE 1 EACH IV SCH (10:00)
[2019-03-15] MEDS: ASCORBIC ACID 500 MG TABLET PO SCH (10:00)
[2019-03-15] MEDS: PANTOPRAZOLE 40 MG TABLET PO SCH (10:00)
[2019-03-15] MEDS: FUROSEMIDE 20 MG/2 ML VIAL IV SCH ×2 (10:01→16:19)
[2019-03-15] MEDS: FLUTICASONE/SALMETEROL 250-50 DISKUS 14 DOSE INH SCH ×2 (10:03→20:37)
[2019-03-15] MEDS: TERAZOSIN 1 MG CAPSULE PO SCH ×2 (10:03→20:38)
[2019-03-15] MEDS: ACIDOPHILUS PROBIOTIC PO SCH (10:03)
[2019-03-15] MEDS: SODIUM CHLORIDE 0.45% 1,000 ML IV SCH ×2 (10:05)
[2019-03-15] MEDS: ACETAMINOPHEN 325 MG TABLET PO PRN (13:52)
[2019-03-15] MEDS: glipiZIDE 10 MG TABLET PO SCH (20:38)
[2019-03-16] MEDS: ALBUTEROL/IPRATROPIUM 3 ML NEB RESP TX SCH ×7 (00:34→23:15)
[2019-03-16] MEDS: methylPREDNISolone SOD SUC 40 MG/1 ML VIAL IV SCH ×3 (02:39→17:17)
[2019-03-16] MEDS: INSULIN REGULAR 100 UNIT/ML SUBCUT SCH ×4 (02:39→18:36)
[2019-03-16 06:02] LABS: Basophils % 0.1 % (0.0-0.8); Eosinophils % 0.2 % (0.00-10.9); Hematocrit 28.9 VOL% (35.7-47.0); Immature Granulocytes % 0.8 %; Immature Granulocytes Absolute 0.07 #; Lymphocytes # 0.6 10*3/uL (1.4-4.0); Lymphocytes % 5.9 % (21.3-54.2); Mean Corpuscular HGB Conc 31.1 GM/DL (32-36); Mean Corpuscular Volume 90.6 FL (87-102); Mean Platelet Volume 11.7 FL (9.6-12.0); Monocytes % 6.3 % (1.7-12.7); Neutrophils % 86.7 % (38.7-73.9); Platelet Count 306 T/CUMM (130-400); Red Blood Count 3.19 MC/CUMM (3.8-5.5); Red Cell Distribution Width 12.6 % (9.3-17.3); White Blood Count 9.3 T/CUMM (4-12)
[2019-03-16 06:22] LABS: Alanine Aminotransferase 18 U/L (13-56); Albumin 3.1 G/DL (3.4-5.0); Alkaline Phosphatase 56 U/L (45-117); Aspartate Amino Transferase 10 U/L (0-37); Bilirubin,Total < 0.39 MG/DL (0.2-1.0); Blood Urea Nitrogen 48 MG/DL (7-18); Calcium 8.7 MG/DL (8.5-10.1); Glucose 106 MG/DL (74-106); Osmolality,Calculated 289.5 MOS/KG (273-304); Total Protein 6.2 G/DL (6.4-8.3)
[2019-03-16] MEDS: SODIUM CHLORIDE 0.45% 1,000 ML IV SCH (06:46)
[2019-03-16] MEDS ORDERED: MEPERIDINE 50 MG/1 ML VIAL IM ONE (07:45)
[2019-03-16] MEDS ORDERED: PROMETHAZINE 25 MG/1 ML VIAL IM ONE (07:45)
[2019-03-16] MEDS ORDERED: MIDAZOLAM 2 MG/2 ML VIAL IV ONE (08:15)
[2019-03-16] MEDS ORDERED: LIDOCAINE 1% 20 ML VIAL MISC INJ ONE (08:15)
[2019-03-16] MEDS ORDERED: LIDOCAINE 2% 20 ML VIAL RESP TX ONE (08:15)
[2019-03-16] MEDS ORDERED: LIDOCAINE 2% VISCOUS 100 ML BOTTLE SWISH/SPIT ONE (08:15)
[2019-03-16] MEDS: cefTRIAXone 1,000 MG in SYRINGE 1 EACH IV SCH (09:41)
[2019-03-16] MEDS: FUROSEMIDE 20 MG/2 ML VIAL IV SCH ×2 (09:42→17:17)
[2019-03-16] MEDS: DORNASE ALFA 2.5 MG/2.5 ML VIAL RESP TX SCH ×2 (11:23→19:10)
[2019-03-16] MEDS: FLUTICASONE/SALMETEROL 250-50 DISKUS 14 DOSE INH SCH ×2 (12:23→20:44)
[2019-03-16] MEDS: MULTIVITAMIN (CENTRUM) TABLET PO SCH (12:24)
[2019-03-16] MEDS: NYSTATIN 500,000 UNIT/5 ML UDCUP SWISH/SWAL SCH ×4 (12:24→20:45)
[2019-03-16] MEDS: ACIDOPHILUS PROBIOTIC PO SCH (12:24)
[2019-03-16] MEDS: GEMFIBROZIL 600 MG TABLET PO SCH ×2 (12:24→20:45)
[2019-03-16] MEDS: ASPIRIN EC 81 MG TABLET PO SCH (12:24)
[2019-03-16] MEDS: ASCORBIC ACID 500 MG TABLET PO SCH (12:24)
[2019-03-16] MEDS: FERROUS SULFATE 325 MG TABLET PO SCH ×2 (12:25→20:45)
[2019-03-16] MEDS: TERAZOSIN 1 MG CAPSULE PO SCH ×2 (12:25→20:45)
[2019-03-16] MEDS: GABAPENTIN 600 MG TABLET PO SCH ×2 (12:25→20:44)
[2019-03-16] MEDS: metroNIDAZOLE 500 MG TABLET PO SCH ×3 (12:25→20:44)
[2019-03-16] MEDS: AZITHROMYCIN 250 MG TABLET PO SCH (12:25)
[2019-03-16] MEDS: DOCUSATE SODIUM 100 MG CAPSULE PO SCH ×2 (12:25→20:44)
[2019-03-16] MEDS: DICYCLOMINE 10 MG CAPSULE PO SCH ×2 (12:25→20:44)
[2019-03-16] MEDS: PANTOPRAZOLE 40 MG TABLET PO SCH (12:30)
[2019-03-16] MEDS: glipiZIDE 10 MG TABLET PO SCH (20:44)
[2019-03-17] MEDS: INSULIN REGULAR 100 UNIT/ML SUBCUT SCH ×5 (00:26→23:51)
[2019-03-17] MEDS: methylPREDNISolone SOD SUC 40 MG/1 ML VIAL IV SCH ×3 (00:27→16:25)
[2019-03-17] MEDS: SODIUM CHLORIDE 0.45% 1,000 ML IV SCH ×2 (02:28→21:16)
[2019-03-17] MEDS: ALBUTEROL/IPRATROPIUM 3 ML NEB RESP TX SCH ×6 (02:40→22:11)
[2019-03-17 05:28] LABS: Basophils % 0.2 % (0.0-0.8); Hemoglobin 9.7 GM/DL (12.0-16.0); Immature Granulocytes % 0.7 %; Immature Granulocytes Absolute 0.07 #; Lymphocytes # 0.5 10*3/uL (1.4-4.0); Lymphocytes % 5.1 % (21.3-54.2); Mean Corpuscular HGB Conc 30.3 GM/DL (32-36); Mean Platelet Volume 11.9 FL (9.6-12.0); Monocytes % 4.5 % (1.7-12.7); Neutrophils % 89.5 % (38.7-73.9); Platelet Count 347 T/CUMM (130-400); Red Blood Count 3.48 MC/CUMM (3.8-5.5); Red Cell Distribution Width 12.8 % (9.3-17.3); White Blood Count 9.8 T/CUMM (4-12)
[2019-03-17 05:43] LABS: Albumin 3.5 G/DL (3.4-5.0); Bilirubin,Total 0.4 MG/DL (0.2-1.0); Calcium 8.7 MG/DL (8.5-10.1); Osmolality,Calculated 295.7 MOS/KG (273-304); Total Protein 6.4 G/DL (6.4-8.3)
[2019-03-17] MEDS: DORNASE ALFA 2.5 MG/2.5 ML VIAL RESP TX SCH ×2 (07:17→18:47)
[2019-03-17] MEDS: FLUTICASONE/SALMETEROL 250-50 DISKUS 14 DOSE INH SCH ×2 (09:57→21:15)
[2019-03-17] MEDS: FERROUS SULFATE 325 MG TABLET PO SCH ×2 (09:58→21:15)
[2019-03-17] MEDS: NYSTATIN 500,000 UNIT/5 ML UDCUP SWISH/SWAL SCH ×4 (09:58→21:15)
[2019-03-17] MEDS: AZITHROMYCIN 250 MG TABLET PO SCH (09:58)
[2019-03-17] MEDS: ASPIRIN EC 81 MG TABLET PO SCH (09:58)
[2019-03-17] MEDS: DICYCLOMINE 10 MG CAPSULE PO SCH ×2 (09:58→21:15)
[2019-03-17] MEDS: GABAPENTIN 600 MG TABLET PO SCH ×2 (09:58→21:14)
[2019-03-17] MEDS: ASCORBIC ACID 500 MG TABLET PO SCH (09:59)
[2019-03-17] MEDS: FUROSEMIDE 20 MG/2 ML VIAL IV SCH ×2 (09:59→16:25)
[2019-03-17] MEDS: PANTOPRAZOLE 40 MG TABLET PO SCH (09:59)
[2019-03-17] MEDS: metroNIDAZOLE 500 MG TABLET PO SCH ×3 (09:59→21:15)
[2019-03-17] MEDS: cefTRIAXone 1,000 MG in SYRINGE 1 EACH IV SCH (09:59)
[2019-03-17] MEDS: GEMFIBROZIL 600 MG TABLET PO SCH ×2 (09:59→21:15)
[2019-03-17] MEDS: DOCUSATE SODIUM 100 MG CAPSULE PO SCH ×2 (09:59→21:15)
[2019-03-17] MEDS: MULTIVITAMIN (CENTRUM) TABLET PO SCH (09:59)
[2019-03-17] MEDS: TERAZOSIN 1 MG CAPSULE PO SCH ×2 (09:59→21:15)
[2019-03-17] MEDS: ACIDOPHILUS PROBIOTIC PO SCH (10:01)
[2019-03-17] MEDS: glipiZIDE 10 MG TABLET PO SCH (21:15)
[2019-03-17] MEDS ORDERED: INSULIN GLARGINE 100 UNIT/ML SUBCUT SCH (21:35)
[2019-03-18] MEDS: methylPREDNISolone SOD SUC 40 MG/1 ML VIAL IV SCH ×3 (01:20→16:06)
[2019-03-18] MEDS: ALBUTEROL/IPRATROPIUM 3 ML NEB RESP TX SCH ×4 (03:15→14:00)
[2019-03-18 05:15] LABS: Basophils % 0.1 % (0.0-0.8); Eosinophils # 0.1 10*3/uL (0.0-0.87); Eosinophils % 0.6 % (0.00-10.9); Hematocrit 29.7 VOL% (35.7-47.0); Hemoglobin 8.9 GM/DL (12.0-16.0); Immature Granulocytes Absolute 0.09 #; Lymphocytes # 0.5 10*3/uL (1.4-4.0); Lymphocytes % 5.9 % (21.3-54.2); Mean Corpuscular Volume 92.2 FL (87-102); Mean Platelet Volume 11.5 FL (9.6-12.0); Monocytes % 5.6 % (1.7-12.7); Neutrophils % 86.8 % (38.7-73.9); Platelet Count 321 T/CUMM (130-400); Red Blood Count 3.22 MC/CUMM (3.8-5.5); Red Cell Distribution Width 12.8 % (9.3-17.3)
[2019-03-18 05:29] LABS: Calcium 8.7 MG/DL (8.5-10.1); Osmolality,Calculated 296.3 MOS/KG (273-304)
[2019-03-18] MEDS: INSULIN REGULAR 100 UNIT/ML SUBCUT SCH ×3 (06:29→18:19)
[2019-03-18] MEDS: DORNASE ALFA 2.5 MG/2.5 ML VIAL RESP TX SCH (07:06)
[2019-03-18] MEDS: FUROSEMIDE 20 MG/2 ML VIAL IV SCH ×2 (09:46→16:06)
[2019-03-18] MEDS: cefTRIAXone 1,000 MG in SYRINGE 1 EACH IV SCH (09:47)
[2019-03-18] MEDS: ASPIRIN EC 81 MG TABLET PO SCH (09:48)
[2019-03-18] MEDS: GABAPENTIN 600 MG TABLET PO SCH (09:48)
[2019-03-18] MEDS: DICYCLOMINE 10 MG CAPSULE PO SCH (09:48)
[2019-03-18] MEDS: PANTOPRAZOLE 40 MG TABLET PO SCH (09:48)
[2019-03-18] MEDS: MULTIVITAMIN (CENTRUM) TABLET PO SCH (09:48)
[2019-03-18] MEDS: AZITHROMYCIN 250 MG TABLET PO SCH (09:48)
[2019-03-18] MEDS: TERAZOSIN 1 MG CAPSULE PO SCH (09:48)
[2019-03-18] MEDS: FERROUS SULFATE 325 MG TABLET PO SCH (09:48)
[2019-03-18] MEDS: ASCORBIC ACID 500 MG TABLET PO SCH (09:48)
[2019-03-18] MEDS: GEMFIBROZIL 600 MG TABLET PO SCH (09:49)
[2019-03-18] MEDS: DOCUSATE SODIUM 100 MG CAPSULE PO SCH (09:49)
[2019-03-18] MEDS: NYSTATIN 500,000 UNIT/5 ML UDCUP SWISH/SWAL SCH ×3 (09:49→18:18)
[2019-03-18] MEDS: ACIDOPHILUS PROBIOTIC PO SCH (09:49)
[2019-03-18] MEDS: FLUTICASONE/SALMETEROL 250-50 DISKUS 14 DOSE INH SCH (09:49)
[2019-03-18] MEDS: metroNIDAZOLE 500 MG TABLET PO SCH ×2 (09:53→16:05)
[2019-03-18 16:11] VITALS: BP 158/64
[2019-03-18] MEDS: ACETAMINOPHEN 325 MG TABLET PO PRN (18:51)
[2019-03-18] MEDS ORDERED: ENOXAPARIN 40 MG/0.4 ML SYRINGE SUBCUT SCH (21:00)
== END 2019-03-18 19:13 | disposition home health service (06) | DRG 178 ==
LOC: N.ED 09:57 → N.EDINP 13:21 → N.2E 15:27
PROVIDERS: ADMIT Family Medicine; ATTEND Family Medicine

== ENCOUNTER 2019-03-27 10:00 | Inpatient (IN) ==
[2019-03-27] MEDS ORDERED: ALBUTEROL/IPRATROPIUM 3 ML NEB RESP TX STA (10:55)
[2019-03-27 11:18] LABS: Basophils % 0.3 % (0.0-0.8); Eosinophils % 2.3 % (0.00-10.9); Hematocrit 28.1 VOL% (35.7-47.0); Hemoglobin 9.2 GM/DL (12.0-16.0); Lymphocytes % 6.2 % (21.3-54.2); Mean Corpuscular HGB Conc 32.7 GM/DL (32-36); Mean Corpuscular Volume 86.5 FL (87-102); Mean Platelet Volume 11.7 FL (9.6-12.0); Monocytes % 9.6 % (1.7-12.7); Neutrophils % 81.3 % (38.7-73.9); Platelet Count 236 T/CUMM (130-400); Red Blood Count 3.25 MC/CUMM (3.8-5.5); Red Cell Distribution Width 13.1 % (9.3-17.3); White Blood Count 11.8 T/CUMM (4-12)
[2019-03-27 11:19] LABS: Immature Granulocytes % 0.3 %
[2019-03-27 11:28] LABS: Alanine Aminotransferase 17 U/L (13-56); Albumin 3.1 G/DL (3.4-5.0); Alkaline Phosphatase 64 U/L (45-117); Aspartate Amino Transferase 14 U/L (0-37); Bilirubin,Total < 0.39 MG/DL (0.2-1.0); Blood Urea Nitrogen 34 MG/DL (7-18); Calcium 8.5 MG/DL (8.5-10.1); Glucose 132 MG/DL (74-106); Osmolality,Calculated 269.8 MOS/KG (273-304); Total Protein 5.6 G/DL (6.4-8.3)
[2019-03-27] MEDS ORDERED: cefTRIAXone 1,000 MG in SODIUM CHLORIDE 0.9% 100 ML IV STA (12:46)
[2019-03-27] MEDS ORDERED: AZITHROMYCIN INJ 500 MG in SODIUM CHLORIDE 0.9% 250 ML IV STA (12:46)
[2019-03-27] MEDS ORDERED: FUROSEMIDE 40 MG/4 ML VIAL IV STA (12:49)
[2019-03-27] MEDS ORDERED: SODIUM CHLORIDE 0.9% 100 ML IV ONE (12:57)
[2019-03-27 14:07] LABS: Apearance,Urine CLEAR (Clear); Bacteria,Urine Occasional /HPF (Few); Bilirubin,Urine Negative (Negative); Blood, Urine Negative (Negative); Glucose,Urine (UA) Negative (Negative); Hyaline Casts,Urine 1 /LPF (0-3); Ketones,Urine Negative (Negative); Mucus,Urine Occasional /LPF (Occasional); Nitrite,Urine Negative (Negative); Protein,Urine 30 MG/DL; RBC,Urine 1 /HPF (0-4); Squamous Epithelial Cell,Urine Occasional /HPF (0-10); Urine Color Yellow (Yellow); Urine Specific Gravity 1.006 (1.001-1.035); Urine Urobilinogen < 2.0 EU/DL (0.2-1.0); WBC,Urine <1 /HPF (0-6)
[2019-03-27] MEDS ORDERED: DEXTROSE 50% 25 GM/50 ML VIAL IV PRN (14:12)
[2019-03-27] MEDS ORDERED: ALBUTEROL/IPRATROPIUM 3 ML NEB RESP TX PRN (18:20)
[2019-03-27] MEDS ORDERED: LOPERAMIDE 2 MG CAPSULE PO PRN (18:27)
[2019-03-27] MEDS ORDERED: traMADol 50 MG TABLET PO PRN (18:27)
[2019-03-27] MEDS ORDERED: GLUCAGON 1 MG VIAL IM PRN (18:27)
[2019-03-27] MEDS ORDERED: ONDANSETRON 4 MG/2 ML VIAL IM PRN (18:36)
[2019-03-27] MEDS ORDERED: ZALEPLON 5 MG CAPSULE PO PRN (18:36)
[2019-03-27] MEDS ORDERED: ONDANSETRON 4 MG TABLET PO PRN (18:36)
[2019-03-27] MEDS ORDERED: ALUMINUM/MAGNES/SIMETH MAX STR 30 ML UDCUP PO PRN (18:36)
[2019-03-27] MEDS ORDERED: ALBUTEROL 2.5 MG/3 ML NEB RESP TX PRN (18:36)
[2019-03-27] MEDS ORDERED: PROMETHAZINE 25 MG TABLET PO PRN (18:36)
[2019-03-27] MEDS ORDERED: DIPHENOXYLATE/ATROPINE 2.5-0.025 MG TABLET PO PRN (18:36)
[2019-03-27] MEDS ORDERED: ACETAMINOPHEN 325 MG TABLET PO PRN (18:36)
[2019-03-27] MEDS ORDERED: NON-FORMULARY MEDICATION (Vancomycin 125 MG) PO SCH (18:45)
[2019-03-27] MEDS ORDERED: ALBUTEROL/IPRATROPIUM 3 ML NEB RESP TX SCH (19:00)
[2019-03-27] MEDS ORDERED: cloNIDine 0.1 MG TABLET PO SCH (21:00)
[2019-03-27] MEDS ORDERED: metroNIDAZOLE 500 MG TABLET PO SCH (21:00)
[2019-03-27] MEDS: INSULIN LISPRO 100 UNIT/ML SUBCUT SCH (22:42)
[2019-03-27] MEDS: DICYCLOMINE 10 MG CAPSULE PO SCH (22:45)
[2019-03-27] MEDS: metroNIDAZOLE 500 MG TABLET PO SCH (22:45)
[2019-03-27] MEDS: GEMFIBROZIL 600 MG TABLET PO SCH (22:45)
[2019-03-27] MEDS: TERAZOSIN 1 MG CAPSULE PO SCH (22:45)
[2019-03-27] MEDS: FERROUS SULFATE 325 MG TABLET PO SCH (22:46)
[2019-03-27] MEDS: cloNIDine 0.1 MG TABLET PO SCH (22:46)
[2019-03-27] MEDS: GABAPENTIN 600 MG TABLET PO SCH (22:46)
[2019-03-27] MEDS: cefTRIAXone 1,000 MG in SYRINGE 1 EACH IV SCH (22:47)
[2019-03-27] MEDS: FLUTICASONE/SALMETEROL 250-50 DISKUS 14 DOSE INH SCH (22:48)
[2019-03-27] MEDS: AZITHROMYCIN INJ 250 MG in SODIUM CHLORIDE 0.9% 250 ML IV SCH (22:48)
[2019-03-27] MEDS: VANCOMYCIN 50 MG/ML 60 ML/BOTTLE PO SCH (22:49)
[2019-03-27] MEDS: DOCUSATE SODIUM 100 MG CAPSULE PO SCH (23:33)
[2019-03-28] MEDS: VANCOMYCIN 50 MG/ML 60 ML/BOTTLE PO SCH ×4 (04:36→22:57)
[2019-03-28 06:02] LABS: Basophils % 0.3 % (0.0-0.8); Eosinophils # 0.2 10*3/uL (0.0-0.87); Eosinophils % 2.5 % (0.00-10.9); Hematocrit 25.7 VOL% (35.7-47.0); Hemoglobin 8.1 GM/DL (12.0-16.0); Immature Granulocytes % 0.5 %; Immature Granulocytes Absolute 0.04 #; Lymphocytes # 1.2 10*3/uL (1.4-4.0); Mean Corpuscular HGB Conc 31.5 GM/DL (32-36); Mean Corpuscular Volume 89.2 FL (87-102); Mean Platelet Volume 11.7 FL (9.6-12.0); Monocytes % 13.2 % (1.7-12.7); Neutrophils % 69.5 % (38.7-73.9); Platelet Count 208 T/CUMM (130-400); Red Blood Count 2.88 MC/CUMM (3.8-5.5); Red Cell Distribution Width 13.2 % (9.3-17.3); White Blood Count 8.8 T/CUMM (4-12)
[2019-03-28 06:35] LABS: Alanine Aminotransferase 13 U/L (13-56); Albumin 2.7 G/DL (3.4-5.0); Alkaline Phosphatase 56 U/L (45-117); Aspartate Amino Transferase 11 U/L (0-37); Bilirubin,Total < 0.39 MG/DL (0.2-1.0); Blood Urea Nitrogen 32 MG/DL (7-18); Ferritin 67.8 ng/ml (8-252); Glucose 83 MG/DL (74-106); HDL Cholesterol 69 MG/DL (40-60); Iron 30 UG/DL (50-170); Osmolality,Calculated 265.8 MOS/KG (273-304); Risk Ratio 2.36; Total Protein 5.5 G/DL (6.4-8.3); Triglycerides 56 MG/DL (2-150); VLDL CHOLESTEROL 11.2 MG/DL
[2019-03-28] MEDS ORDERED: POTASSIUM CHLORIDE INJ 20 MEQ in SODIUM CHLORIDE 0.9% 1,000 ML IV SCH (08:00)
[2019-03-28] MEDS ORDERED: AZITHROMYCIN 250 MG TABLET PO SCH (09:00)
[2019-03-28] MEDS ORDERED: predniSONE 10 MG TABLET PO SCH (09:00)
[2019-03-28] MEDS ORDERED: POLYETHYLENE GLYCOL POWDER 17 GM PACK PO PRN (09:00)
[2019-03-28] MEDS: glipiZIDE 10 MG TABLET PO SCH ×2 (09:53→18:00)
[2019-03-28] MEDS: LACTOBACILLUS ACIDOPHILUS/BULGARICUS CAPLET PO SCH (09:53)
[2019-03-28] MEDS: GEMFIBROZIL 600 MG TABLET PO SCH ×2 (09:54→21:34)
[2019-03-28] MEDS: metroNIDAZOLE 500 MG TABLET PO SCH ×3 (09:54→21:34)
[2019-03-28] MEDS: DOCUSATE SODIUM 100 MG CAPSULE PO SCH ×2 (09:54→21:33)
[2019-03-28] MEDS: GABAPENTIN 600 MG TABLET PO SCH ×2 (09:54→21:33)
[2019-03-28] MEDS: DICYCLOMINE 10 MG CAPSULE PO SCH ×2 (09:54→21:33)
[2019-03-28] MEDS: PANTOPRAZOLE 40 MG TABLET PO SCH (09:54)
[2019-03-28] MEDS: FERROUS SULFATE 325 MG TABLET PO SCH ×2 (09:54→21:33)
[2019-03-28] MEDS: cloNIDine 0.1 MG TABLET PO SCH ×3 (09:54→23:38)
[2019-03-28] MEDS: FUROSEMIDE 80 MG TABLET PO SCH (09:54)
[2019-03-28] MEDS: hydroCHLOROthiazide 25 MG TABLET PO SCH (09:54)
[2019-03-28] MEDS: MULTIVITAMIN (CENTRUM) TABLET PO SCH (09:54)
[2019-03-28] MEDS: FLUTICASONE/SALMETEROL 250-50 DISKUS 14 DOSE INH SCH ×2 (09:55→22:56)
[2019-03-28] MEDS: ASCORBIC ACID 500 MG TABLET PO SCH (09:55)
[2019-03-28] MEDS: SODIUM CHLOR 0.9% KCL 20 MEQ 20 MEQ/1,000 ML BAG IV SCH ×2 (09:56→23:39)
[2019-03-28] MEDS: INSULIN LISPRO 100 UNIT/ML SUBCUT SCH ×4 (10:04→23:53)
[2019-03-28] MEDS: TERAZOSIN 1 MG CAPSULE PO SCH ×2 (10:11→21:32)
[2019-03-28] MEDS: methylPREDNISolone SOD SUC 40 MG/1 ML VIAL IV SCH ×2 (10:11→21:34)
[2019-03-28] MEDS: ASPIRIN EC 81 MG TABLET PO SCH (10:15)
[2019-03-28] MEDS: ALBUTEROL/IPRATROPIUM 3 ML NEB RESP TX SCH ×2 (12:56→20:30)
[2019-03-28] MEDS: metFORMIN 500 MG TABLET PO SCH (17:59)
[2019-03-28] MEDS: cefTRIAXone 1,000 MG in SYRINGE 1 EACH IV SCH (19:57)
[2019-03-28] MEDS: AZITHROMYCIN INJ 250 MG in SODIUM CHLORIDE 0.9% 250 ML IV SCH (19:58)
[2019-03-29] MEDS: ALBUTEROL/IPRATROPIUM 3 ML NEB RESP TX SCH ×4 (01:44→19:46)
[2019-03-29] MEDS: VANCOMYCIN 50 MG/ML 60 ML/BOTTLE PO SCH ×4 (03:56→22:45)
[2019-03-29 04:57] LABS: Basophils % 0.1 % (0.0-0.8); Hematocrit 25.7 VOL% (35.7-47.0); Hemoglobin 8.3 GM/DL (12.0-16.0); Immature Granulocytes % 0.4 %; Immature Granulocytes Absolute 0.04 #; Lymphocytes # 0.3 10*3/uL (1.4-4.0); Lymphocytes % 3.5 % (21.3-54.2); Mean Corpuscular HGB Conc 32.3 GM/DL (32-36); Mean Corpuscular Volume 87.7 FL (87-102); Mean Platelet Volume 12.7 FL (9.6-12.0); Monocytes % 3.9 % (1.7-12.7); Neutrophils % 92.1 % (38.7-73.9); Platelet Count 201 T/CUMM (130-400); Red Blood Count 2.93 MC/CUMM (3.8-5.5)
[2019-03-29 05:18] LABS: Calcium 8.4 MG/DL (8.5-10.1); Osmolality,Calculated 271.9 MOS/KG (273-304)
[2019-03-29 05:25] LABS: Hypochromasia 1+; Lymphocytes 2 % (20-55); Platelet Estimate Adequate; Segmented Neutrophils 94 % (50-85); Total Cells Counted 100
[2019-03-29] MEDS: INSULIN LISPRO 100 UNIT/ML SUBCUT SCH ×4 (10:02→22:44)
[2019-03-29] MEDS: methylPREDNISolone SOD SUC 40 MG/1 ML VIAL IV SCH ×2 (10:03→22:44)
[2019-03-29] MEDS: ASPIRIN EC 81 MG TABLET PO SCH (10:03)
[2019-03-29] MEDS: cloNIDine 0.1 MG TABLET PO SCH ×3 (10:04→22:46)
[2019-03-29] MEDS: TERAZOSIN 1 MG CAPSULE PO SCH ×2 (10:04→20:13)
[2019-03-29] MEDS: GEMFIBROZIL 600 MG TABLET PO SCH ×2 (10:04→20:13)
[2019-03-29] MEDS: FERROUS SULFATE 325 MG TABLET PO SCH ×2 (10:04→20:12)
[2019-03-29] MEDS: metroNIDAZOLE 500 MG TABLET PO SCH ×3 (10:04→20:13)
[2019-03-29] MEDS: FUROSEMIDE 80 MG TABLET PO SCH (10:05)
[2019-03-29] MEDS: ASCORBIC ACID 500 MG TABLET PO SCH (10:05)
[2019-03-29] MEDS: LACTOBACILLUS ACIDOPHILUS/BULGARICUS CAPLET PO SCH (10:05)
[2019-03-29] MEDS: GABAPENTIN 600 MG TABLET PO SCH ×2 (10:05→20:12)
[2019-03-29] MEDS: glipiZIDE 10 MG TABLET PO SCH ×2 (10:05→17:56)
[2019-03-29] MEDS: MULTIVITAMIN (CENTRUM) TABLET PO SCH (10:05)
[2019-03-29] MEDS: hydroCHLOROthiazide 25 MG TABLET PO SCH (10:05)
[2019-03-29] MEDS: PANTOPRAZOLE 40 MG TABLET PO SCH (10:05)
[2019-03-29] MEDS: DICYCLOMINE 10 MG CAPSULE PO SCH ×2 (10:05→20:13)
[2019-03-29] MEDS: DOCUSATE SODIUM 100 MG CAPSULE PO SCH ×2 (10:06→20:12)
[2019-03-29] MEDS: FLUTICASONE/SALMETEROL 250-50 DISKUS 14 DOSE INH SCH ×2 (10:06→22:46)
[2019-03-29] MEDS: SODIUM CHLOR 0.9% KCL 20 MEQ 20 MEQ/1,000 ML BAG IV SCH ×2 (12:59→22:44)
[2019-03-29] MEDS: metFORMIN 500 MG TABLET PO SCH (17:56)
[2019-03-29] MEDS: AZITHROMYCIN INJ 250 MG in SODIUM CHLORIDE 0.9% 250 ML IV SCH (22:43)
[2019-03-29] MEDS: cefTRIAXone 1,000 MG in SYRINGE 1 EACH IV SCH (22:46)
[2019-03-30] MEDS: ALBUTEROL/IPRATROPIUM 3 ML NEB RESP TX SCH ×2 (00:08→07:38)
[2019-03-30] MEDS ORDERED: GLUCOSE GEL 15 GM TUBE PO PRN (00:33)
[2019-03-30] MEDS: VANCOMYCIN 50 MG/ML 60 ML/BOTTLE PO SCH ×2 (04:04→09:16)
[2019-03-30 04:43] LABS: Basophils % 0.2 % (0.0-0.8); Eosinophils # 0.1 10*3/uL (0.0-0.87); Hematocrit 24.2 VOL% (35.7-47.0); Immature Granulocytes % 0.6 %; Immature Granulocytes Absolute 0.07 #; Lymphocytes # 1.1 10*3/uL (1.4-4.0); Lymphocytes % 9.2 % (21.3-54.2); Mean Corpuscular HGB Conc 33.1 GM/DL (32-36); Mean Corpuscular Volume 87.7 FL (87-102); Mean Platelet Volume 12.8 FL (9.6-12.0); Monocytes % 10.1 % (1.7-12.7); Neutrophils % 78.9 % (38.7-73.9); Platelet Count 224 T/CUMM (130-400); Red Blood Count 2.76 MC/CUMM (3.8-5.5); Red Cell Distribution Width 13.2 % (9.3-17.3); White Blood Count 11.4 T/CUMM (4-12)
[2019-03-30 05:12] LABS: Calcium 8.6 MG/DL (8.5-10.1); Osmolality,Calculated 268.1 MOS/KG (273-304)
[2019-03-30] MEDS ORDERED: predniSONE 20 MG TABLET PO SCH (08:10)
[2019-03-30] MEDS: INSULIN LISPRO 100 UNIT/ML SUBCUT SCH (08:56)
[2019-03-30] MEDS: cloNIDine 0.1 MG TABLET PO SCH (09:03)
[2019-03-30] MEDS: GEMFIBROZIL 600 MG TABLET PO SCH (09:03)
[2019-03-30] MEDS: glipiZIDE 10 MG TABLET PO SCH (09:03)
[2019-03-30] MEDS: LACTOBACILLUS ACIDOPHILUS/BULGARICUS CAPLET PO SCH (09:03)
[2019-03-30] MEDS: FERROUS SULFATE 325 MG TABLET PO SCH (09:03)
[2019-03-30] MEDS: GABAPENTIN 600 MG TABLET PO SCH (09:03)
[2019-03-30] MEDS: DOCUSATE SODIUM 100 MG CAPSULE PO SCH (09:03)
[2019-03-30] MEDS: ASCORBIC ACID 500 MG TABLET PO SCH (09:03)
[2019-03-30] MEDS: MULTIVITAMIN (CENTRUM) TABLET PO SCH (09:03)
[2019-03-30] MEDS: FUROSEMIDE 80 MG TABLET PO SCH (09:04)
[2019-03-30] MEDS: ASPIRIN EC 81 MG TABLET PO SCH (09:04)
[2019-03-30] MEDS: DICYCLOMINE 10 MG CAPSULE PO SCH (09:04)
[2019-03-30] MEDS: TERAZOSIN 1 MG CAPSULE PO SCH (09:04)
[2019-03-30] MEDS: hydroCHLOROthiazide 25 MG TABLET PO SCH (09:04)
[2019-03-30] MEDS: metroNIDAZOLE 500 MG TABLET PO SCH (09:04)
[2019-03-30] MEDS: PANTOPRAZOLE 40 MG TABLET PO SCH (09:06)
[2019-03-30] MEDS: SODIUM CHLOR 0.9% KCL 20 MEQ 20 MEQ/1,000 ML BAG IV SCH (09:14)
[2019-03-30] MEDS: FLUTICASONE/SALMETEROL 250-50 DISKUS 14 DOSE INH SCH (09:14)
[2019-03-30 12:00] VITALS: BP 149/85
== END 2019-03-30 12:00 | DRG 190 ==
LOC: EDBD → EDUNIT# → N.ED 10:00 → N.EDINP 12:50 → N.5E 17:02
PROVIDERS: ADMIT Family Medicine; ATTEND Family Medicine

== ENCOUNTER 2019-04-18 10:15 | Inpatient (IN) ==
[2019-04-18 11:46] LABS: Basophils % 0.3 % (0.0-0.8); Eosinophils # 0.1 10*3/uL (0.0-0.87); Eosinophils % 0.4 % (0.00-10.9); Hematocrit 34.4 VOL% (35.7-47.0); Hemoglobin 10.8 GM/DL (12.0-16.0); Immature Granulocytes % 0.5 %; Immature Granulocytes Absolute 0.06 #; Lymphocytes # 0.4 10*3/uL (1.4-4.0); Lymphocytes % 2.8 % (21.3-54.2); Mean Corpuscular HGB Conc 31.4 GM/DL (32-36); Mean Corpuscular Volume 90.5 FL (87-102); Mean Platelet Volume 10.8 FL (9.6-12.0); Monocytes % 3.4 % (1.7-12.7); Neutrophils % 92.6 % (38.7-73.9); Platelet Count 251 T/CUMM (130-400); Red Cell Distribution Width 13.5 % (9.3-17.3); White Blood Count 12.4 T/CUMM (4-12)
[2019-04-18 12:08] LABS: Amorphous Crystals,Urine Occasional /HPF (Few); Apearance,Urine Slightly Hazy (Clear); Bilirubin,Urine Negative (Negative); Blood, Urine Negative (Negative); Glucose,Urine (UA) Negative (Negative); Hyaline Casts,Urine 8 /LPF (0-3); Ketones,Urine Negative (Negative); Mucus,Urine Occasional /LPF (Occasional); Nitrite,Urine Negative (Negative); Protein,Urine 100 MG/DL; Urine Color Amber (Yellow); Urine Specific Gravity 1.017 (1.001-1.035); Urine Urobilinogen < 2.0 EU/DL (0.2-1.0)
[2019-04-18 12:10] LABS: Band Neutrophils 1 % (0-10); Eosinophils 2 % (0-10); Hypochromasia Slight; Lymphocytes 2 % (20-55); Platelet Estimate Adequate; Segmented Neutrophils 92 % (50-85); Total Cells Counted 100
[2019-04-18 12:16] LABS: Calcium 8.9 MG/DL (8.5-10.1); Osmolality,Calculated 279.7 MOS/KG (273-304)
[2019-04-18] MEDS ORDERED: SODIUM CHLORIDE 0.9% 500 ML IV STA (13:28)
[2019-04-18] MEDS: SODIUM CHLORIDE 0.9% 1,000 ML IV SCH (16:29)
[2019-04-18] MEDS ORDERED: ALBUTEROL 2.5 MG/3 ML NEB RESP TX PRN (17:11)
[2019-04-18] MEDS ORDERED: DIPHENOXYLATE/ATROPINE 2.5-0.025 MG TABLET PO PRN (17:11)
[2019-04-18] MEDS ORDERED: GLUCAGON 1 MG VIAL IM PRN (18:08)
[2019-04-18] MEDS ORDERED: DEXTROSE 10% 250 ML BAG IV PRN (18:08)
[2019-04-18] MEDS: FERROUS SULFATE 325 MG TABLET PO SCH (21:45)
[2019-04-18] MEDS: gemfibroziL 600 MG TABLET PO SCH (21:45)
[2019-04-18] MEDS: DOCUSATE SODIUM 100 MG CAPSULE PO SCH (21:46)
[2019-04-18] MEDS: GABAPENTIN 600 MG TABLET PO SCH (21:46)
[2019-04-18] MEDS: INSULIN LISPRO 100 UNIT/ML SUBCUT SCH (21:46)
[2019-04-18] MEDS: DICYCLOMINE 10 MG CAPSULE PO SCH (21:46)
[2019-04-18] MEDS: TERAZOSIN 1 MG CAPSULE PO SCH (21:50)
[2019-04-18] MEDS: FLUTICASONE/SALMETEROL 250-50 DISKUS 14 DOSE INH SCH (21:50)
[2019-04-19] MEDS: SODIUM CHLORIDE 0.9% 1,000 ML IV SCH ×3 (00:30→21:51)
[2019-04-19 05:23] LABS: Basophils % 0.3 % (0.0-0.8); Eosinophils # 0.2 10*3/uL (0.0-0.87); Eosinophils % 2.1 % (0.00-10.9); Hemoglobin 8.7 GM/DL (12.0-16.0); Immature Granulocytes % 0.3 %; Immature Granulocytes Absolute 0.02 #; Lymphocytes # 0.8 10*3/uL (1.4-4.0); Lymphocytes % 9.8 % (21.3-54.2); Mean Corpuscular HGB Conc 32.2 GM/DL (32-36); Mean Corpuscular Volume 87.9 FL (87-102); Mean Platelet Volume 10.8 FL (9.6-12.0); Monocytes % 10.9 % (1.7-12.7); Neutrophils % 76.6 % (38.7-73.9); Platelet Count 206 T/CUMM (130-400); Red Blood Count 3.07 MC/CUMM (3.8-5.5); Red Cell Distribution Width 13.5 % (9.3-17.3); White Blood Count 7.8 T/CUMM (4-12)
[2019-04-19 05:51] LABS: Albumin 2.8 G/DL (3.4-5.0); Bilirubin,Total 0.4 MG/DL (0.2-1.0); Calcium 8.5 MG/DL (8.5-10.1); Osmolality,Calculated 278.2 MOS/KG (273-304); Thyroid Stimulating Hormone 0.515 uIU/ml (0.358-3.74); Total Protein 5.8 G/DL (6.4-8.3)
[2019-04-19] MEDS: FUROSEMIDE 20 MG TABLET PO SCH (08:09)
[2019-04-19] MEDS: ASCORBIC ACID 500 MG TABLET PO SCH (08:09)
[2019-04-19] MEDS: DICYCLOMINE 10 MG CAPSULE PO SCH ×2 (08:09→21:57)
[2019-04-19] MEDS: POTASSIUM CHLORIDE 20 MEQ TABLET PO SCH (08:09)
[2019-04-19] MEDS: DOCUSATE SODIUM 100 MG CAPSULE PO SCH ×2 (08:09→21:57)
[2019-04-19] MEDS: FERROUS SULFATE 325 MG TABLET PO SCH ×2 (08:09→21:57)
[2019-04-19] MEDS: MULTIVITAMIN (CENTRUM) TABLET PO SCH (08:09)
[2019-04-19] MEDS: gemfibroziL 600 MG TABLET PO SCH ×2 (08:09→21:57)
[2019-04-19] MEDS: PANTOPRAZOLE 40 MG TABLET PO SCH (08:10)
[2019-04-19] MEDS: glipiZIDE 10 MG TABLET PO SCH (08:10)
[2019-04-19] MEDS: predniSONE 20 MG TABLET PO SCH (08:10)
[2019-04-19] MEDS: TERAZOSIN 1 MG CAPSULE PO SCH ×2 (08:10→21:57)
[2019-04-19] MEDS: GABAPENTIN 600 MG TABLET PO SCH ×2 (08:10→21:57)
[2019-04-19] MEDS: ASPIRIN EC 81 MG TABLET PO SCH (08:12)
[2019-04-19] MEDS: INSULIN LISPRO 100 UNIT/ML SUBCUT SCH ×4 (08:13→21:58)
[2019-04-19] MEDS: cloNIDine 0.1 MG TABLET PO SCH ×3 (08:13→21:57)
[2019-04-19] MEDS: FLUTICASONE/SALMETEROL 250-50 DISKUS 14 DOSE INH SCH ×2 (08:13→21:57)
[2019-04-19] MEDS ORDERED: predniSONE 20 MG TABLET PO SCH (09:00)
[2019-04-19] MEDS ORDERED: FUROSEMIDE 80 MG TABLET PO SCH (09:00)
[2019-04-19] MEDS ORDERED: metFORMIN 500 MG TABLET PO SCH (17:00)
[2019-04-20 06:27] LABS: Basophils % 0.3 % (0.0-0.8); Eosinophils # 0.3 10*3/uL (0.0-0.87); Eosinophils % 3.5 % (0.00-10.9); Hematocrit 26.3 VOL% (35.7-47.0); Hemoglobin 8.2 GM/DL (12.0-16.0); Immature Granulocytes % 0.4 %; Immature Granulocytes Absolute 0.03 #; Mean Corpuscular HGB Conc 31.2 GM/DL (32-36); Mean Corpuscular Volume 89.2 FL (87-102); Mean Platelet Volume 11.5 FL (9.6-12.0); Monocytes % 9.7 % (1.7-12.7); Neutrophils % 73.1 % (38.7-73.9); Platelet Count 208 T/CUMM (130-400); Red Blood Count 2.95 MC/CUMM (3.8-5.5); Red Cell Distribution Width 13.5 % (9.3-17.3); White Blood Count 7.4 T/CUMM (4-12)
[2019-04-20] MEDS: SODIUM CHLORIDE 0.9% 1,000 ML IV SCH ×4 (06:44→16:54)
[2019-04-20 06:55] LABS: Albumin 2.7 G/DL (3.4-5.0); Bilirubin,Total 0.5 MG/DL (0.2-1.0); Calcium 8.4 MG/DL (8.5-10.1); Osmolality,Calculated 292.4 MOS/KG (273-304); Total Protein 5.7 G/DL (6.4-8.3)
[2019-04-20] MEDS: ASPIRIN EC 81 MG TABLET PO SCH (10:30)
[2019-04-20] MEDS: GABAPENTIN 600 MG TABLET PO SCH ×2 (10:30→20:10)
[2019-04-20] MEDS: FUROSEMIDE 20 MG TABLET PO SCH (10:30)
[2019-04-20] MEDS: MULTIVITAMIN (CENTRUM) TABLET PO SCH (10:30)
[2019-04-20] MEDS: DICYCLOMINE 10 MG CAPSULE PO SCH ×2 (10:31→20:10)
[2019-04-20] MEDS: INSULIN LISPRO 100 UNIT/ML SUBCUT SCH ×4 (10:31→20:14)
[2019-04-20] MEDS: glipiZIDE 10 MG TABLET PO SCH (10:31)
[2019-04-20] MEDS: cloNIDine 0.1 MG TABLET PO SCH ×3 (10:31→20:10)
[2019-04-20] MEDS: TERAZOSIN 1 MG CAPSULE PO SCH ×2 (10:31→20:10)
[2019-04-20] MEDS: FERROUS SULFATE 325 MG TABLET PO SCH ×2 (10:31→20:10)
[2019-04-20] MEDS: POTASSIUM CHLORIDE 20 MEQ TABLET PO SCH (10:31)
[2019-04-20] MEDS: ASCORBIC ACID 500 MG TABLET PO SCH (10:31)
[2019-04-20] MEDS: gemfibroziL 600 MG TABLET PO SCH ×2 (10:31→20:30)
[2019-04-20] MEDS: DOCUSATE SODIUM 100 MG CAPSULE PO SCH ×2 (10:32→20:13)
[2019-04-20] MEDS: PANTOPRAZOLE 40 MG TABLET PO SCH (10:33)
[2019-04-20] MEDS: predniSONE 20 MG TABLET PO SCH (10:36)
[2019-04-20] MEDS: FLUTICASONE/SALMETEROL 250-50 DISKUS 14 DOSE INH SCH ×2 (10:36→20:09)
[2019-04-21] MEDS: SODIUM CHLORIDE 0.9% 1,000 ML IV SCH ×3 (02:20→21:07)
[2019-04-21 06:03] LABS: Basophils % 0.3 % (0.0-0.8); Eosinophils # 0.2 10*3/uL (0.0-0.87); Eosinophils % 2.6 % (0.00-10.9); Hematocrit 28.4 VOL% (35.7-47.0); Hemoglobin 8.9 GM/DL (12.0-16.0); Immature Granulocytes % 0.6 %; Immature Granulocytes Absolute 0.05 #; Lymphocytes # 0.7 10*3/uL (1.4-4.0); Lymphocytes % 7.8 % (21.3-54.2); Mean Corpuscular HGB Conc 31.3 GM/DL (32-36); Mean Platelet Volume 11.3 FL (9.6-12.0); Monocytes % 7.4 % (1.7-12.7); Neutrophils % 81.3 % (38.7-73.9); Platelet Count 236 T/CUMM (130-400); Red Blood Count 3.12 MC/CUMM (3.8-5.5); Red Cell Distribution Width 13.8 % (9.3-17.3); White Blood Count 9.1 T/CUMM (4-12)
[2019-04-21 06:29] LABS: Alanine Aminotransferase 12 U/L (13-56); Albumin 2.8 G/DL (3.4-5.0); Alkaline Phosphatase 54 U/L (45-117); Aspartate Amino Transferase 10 U/L (0-37); Bilirubin,Total < 0.39 MG/DL (0.2-1.0); Blood Urea Nitrogen 48 MG/DL (7-18); Calcium 8.6 MG/DL (8.5-10.1); Estimated Glom Filtration Rate 29 ML/MIN; Glucose 108 MG/DL (74-106); Osmolality,Calculated 296.1 MOS/KG (273-304)
[2019-04-21] MEDS: INSULIN LISPRO 100 UNIT/ML SUBCUT SCH ×4 (08:42→21:04)
[2019-04-21] MEDS: FERROUS SULFATE 325 MG TABLET PO SCH ×2 (08:43→21:06)
[2019-04-21] MEDS: predniSONE 20 MG TABLET PO SCH (08:43)
[2019-04-21] MEDS: gemfibroziL 600 MG TABLET PO SCH ×2 (08:43→21:05)
[2019-04-21] MEDS: ASPIRIN EC 81 MG TABLET PO SCH (08:44)
[2019-04-21] MEDS: GABAPENTIN 600 MG TABLET PO SCH ×2 (08:44→21:05)
[2019-04-21] MEDS: glipiZIDE 10 MG TABLET PO SCH (08:44)
[2019-04-21] MEDS: ASCORBIC ACID 500 MG TABLET PO SCH (08:44)
[2019-04-21] MEDS: DICYCLOMINE 10 MG CAPSULE PO SCH ×2 (08:44→21:05)
[2019-04-21] MEDS: cloNIDine 0.1 MG TABLET PO SCH ×3 (08:44→21:05)
[2019-04-21] MEDS: MULTIVITAMIN (CENTRUM) TABLET PO SCH (08:44)
[2019-04-21] MEDS: DOCUSATE SODIUM 100 MG CAPSULE PO SCH ×2 (08:44→21:05)
[2019-04-21] MEDS: PANTOPRAZOLE 40 MG TABLET PO SCH (08:44)
[2019-04-21] MEDS: FLUTICASONE/SALMETEROL 250-50 DISKUS 14 DOSE INH SCH ×2 (08:44→21:05)
[2019-04-21] MEDS: FUROSEMIDE 20 MG TABLET PO SCH (08:44)
[2019-04-21] MEDS: TERAZOSIN 1 MG CAPSULE PO SCH ×2 (08:44→21:05)
[2019-04-21] MEDS: POTASSIUM CHLORIDE 20 MEQ TABLET PO SCH (12:57)
[2019-04-21] MEDS: NYSTATIN 500,000 UNIT/5 ML UDCUP SWISH/SWAL SCH ×3 (12:57→21:06)
[2019-04-21] MEDS: ALBUTEROL/IPRATROPIUM 3 ML NEB RESP TX PRN (14:10)
[2019-04-21] MEDS: ACETAMINOPHEN 325 MG TABLET PO PRN (23:20)
[2019-04-22 05:11] LABS: Basophils % 0.3 % (0.0-0.8); Eosinophils # 0.3 10*3/uL (0.0-0.87); Eosinophils % 3.1 % (0.00-10.9); Hematocrit 27.6 VOL% (35.7-47.0); Hemoglobin 8.6 GM/DL (12.0-16.0); Immature Granulocytes % 0.6 %; Immature Granulocytes Absolute 0.05 #; Lymphocytes # 0.8 10*3/uL (1.4-4.0); Lymphocytes % 9.4 % (21.3-54.2); Mean Corpuscular HGB Conc 31.2 GM/DL (32-36); Mean Corpuscular Volume 91.1 FL (87-102); Mean Platelet Volume 11.5 FL (9.6-12.0); Monocytes % 6.5 % (1.7-12.7); Neutrophils % 80.1 % (38.7-73.9); Platelet Count 219 T/CUMM (130-400); Red Blood Count 3.03 MC/CUMM (3.8-5.5); Red Cell Distribution Width 14.2 % (9.3-17.3); White Blood Count 8.8 T/CUMM (4-12)
[2019-04-22 05:42] LABS: Albumin 2.6 G/DL (3.4-5.0); Bilirubin,Total 0.6 MG/DL (0.2-1.0); Calcium 8.7 MG/DL (8.5-10.1); Total Protein 6.1 G/DL (6.4-8.3)
[2019-04-22] MEDS: SODIUM CHLORIDE 0.9% 1,000 ML IV SCH (06:11)
[2019-04-22] MEDS: ONDANSETRON 4 MG/2 ML VIAL IV PRN (06:46)
[2019-04-22] MEDS ORDERED: FUROSEMIDE 40 MG/4 ML VIAL IV ONE (08:20)
[2019-04-22] MEDS: ALBUTEROL/IPRATROPIUM 3 ML NEB RESP TX PRN (08:28)
[2019-04-22] MEDS: FUROSEMIDE 20 MG TABLET PO SCH (08:53)
[2019-04-22] MEDS: POTASSIUM CHLORIDE 20 MEQ TABLET PO SCH (08:54)
[2019-04-22] MEDS: TERAZOSIN 1 MG CAPSULE PO SCH ×2 (08:54→21:03)
[2019-04-22] MEDS: MULTIVITAMIN (CENTRUM) TABLET PO SCH (08:54)
[2019-04-22] MEDS: PANTOPRAZOLE 40 MG TABLET PO SCH (08:54)
[2019-04-22] MEDS: glipiZIDE 10 MG TABLET PO SCH (08:54)
[2019-04-22] MEDS: GABAPENTIN 600 MG TABLET PO SCH ×2 (08:54→21:03)
[2019-04-22] MEDS: predniSONE 20 MG TABLET PO SCH (08:54)
[2019-04-22] MEDS: gemfibroziL 600 MG TABLET PO SCH ×2 (08:55→21:03)
[2019-04-22] MEDS: DICYCLOMINE 10 MG CAPSULE PO SCH ×2 (08:55→21:03)
[2019-04-22] MEDS: ASPIRIN EC 81 MG TABLET PO SCH (08:55)
[2019-04-22] MEDS: FERROUS SULFATE 325 MG TABLET PO SCH ×2 (08:55→21:03)
[2019-04-22] MEDS: NYSTATIN 500,000 UNIT/5 ML UDCUP SWISH/SWAL SCH ×4 (08:55→21:03)
[2019-04-22] MEDS: INSULIN LISPRO 100 UNIT/ML SUBCUT SCH ×4 (08:55→21:04)
[2019-04-22] MEDS: cloNIDine 0.1 MG TABLET PO SCH ×3 (08:55→21:04)
[2019-04-22] MEDS: DOCUSATE SODIUM 100 MG CAPSULE PO SCH ×2 (08:55→21:03)
[2019-04-22] MEDS: FLUTICASONE/SALMETEROL 250-50 DISKUS 14 DOSE INH SCH ×2 (08:56→21:03)
[2019-04-22] MEDS: ALBUTEROL/IPRATROPIUM 3 ML NEB RESP TX SCH ×2 (13:56→19:31)
[2019-04-22] MEDS: ASCORBIC ACID 500 MG TABLET PO SCH (14:22)
[2019-04-23 05:56] LABS: Basophils % 0.2 % (0.0-0.8); Eosinophils # 0.3 10*3/uL (0.0-0.87); Eosinophils % 2.8 % (0.00-10.9); Hematocrit 24.4 VOL% (35.7-47.0); Hemoglobin 7.7 GM/DL (12.0-16.0); Immature Granulocytes Absolute 0.09 #; Lymphocytes # 0.8 10*3/uL (1.4-4.0); Lymphocytes % 8.5 % (21.3-54.2); Mean Corpuscular HGB Conc 31.6 GM/DL (32-36); Mean Corpuscular Volume 90.7 FL (87-102); Mean Platelet Volume 11.5 FL (9.6-12.0); Monocytes % 5.8 % (1.7-12.7); Neutrophils % 81.7 % (38.7-73.9); Platelet Count 217 T/CUMM (130-400); Red Blood Count 2.69 MC/CUMM (3.8-5.5); Red Cell Distribution Width 14.4 % (9.3-17.3); White Blood Count 8.8 T/CUMM (4-12)
[2019-04-23 06:28] LABS: Calcium 8.6 MG/DL (8.5-10.1); Osmolality,Calculated 292.5 MOS/KG (273-304)
[2019-04-23] MEDS: ALBUTEROL/IPRATROPIUM 3 ML NEB RESP TX SCH ×3 (07:54→19:40)
[2019-04-23] MEDS: MULTIVITAMIN (CENTRUM) TABLET PO SCH (10:53)
[2019-04-23] MEDS: POTASSIUM CHLORIDE 20 MEQ TABLET PO SCH (10:53)
[2019-04-23] MEDS: FUROSEMIDE 20 MG TABLET PO SCH (10:53)
[2019-04-23] MEDS: gemfibroziL 600 MG TABLET PO SCH ×2 (10:54→21:24)
[2019-04-23] MEDS: PANTOPRAZOLE 40 MG TABLET PO SCH (10:54)
[2019-04-23] MEDS: predniSONE 20 MG TABLET PO SCH (10:54)
[2019-04-23] MEDS: DOCUSATE SODIUM 100 MG CAPSULE PO SCH ×2 (10:57→21:24)
[2019-04-23] MEDS: DICYCLOMINE 10 MG CAPSULE PO SCH ×2 (10:57→21:24)
[2019-04-23] MEDS: FERROUS SULFATE 325 MG TABLET PO SCH ×2 (10:57→21:24)
[2019-04-23] MEDS: TERAZOSIN 1 MG CAPSULE PO SCH ×2 (10:57→21:24)
[2019-04-23] MEDS: cloNIDine 0.1 MG TABLET PO SCH ×3 (10:57→21:24)
[2019-04-23] MEDS: GABAPENTIN 600 MG TABLET PO SCH ×2 (10:57→21:24)
[2019-04-23] MEDS: ASPIRIN EC 81 MG TABLET PO SCH (10:58)
[2019-04-23] MEDS: glipiZIDE 10 MG TABLET PO SCH (10:58)
[2019-04-23] MEDS: ASCORBIC ACID 500 MG TABLET PO SCH (10:58)
[2019-04-23] MEDS: NYSTATIN 500,000 UNIT/5 ML UDCUP SWISH/SWAL SCH ×4 (10:58→21:24)
[2019-04-23] MEDS: FLUTICASONE/SALMETEROL 250-50 DISKUS 14 DOSE INH SCH ×2 (10:59→21:25)
[2019-04-23] MEDS: INSULIN LISPRO 100 UNIT/ML SUBCUT SCH ×4 (11:07→21:25)
[2019-04-23] MEDS: ACETAMINOPHEN 325 MG TABLET PO PRN (21:31)
[2019-04-24 04:54] LABS: Basophils % 0.4 % (0.0-0.8); Eosinophils # 0.3 10*3/uL (0.0-0.87); Eosinophils % 3.9 % (0.00-10.9); Hematocrit 23.1 VOL% (35.7-47.0); Hemoglobin 7.3 GM/DL (12.0-16.0); Immature Granulocytes % 0.9 %; Immature Granulocytes Absolute 0.06 #; Lymphocytes # 0.8 10*3/uL (1.4-4.0); Lymphocytes % 11.1 % (21.3-54.2); Mean Corpuscular HGB Conc 31.6 GM/DL (32-36); Mean Corpuscular Volume 90.9 FL (87-102); Mean Platelet Volume 11.2 FL (9.6-12.0); Monocytes % 9.4 % (1.7-12.7); Neutrophils % 74.3 % (38.7-73.9); Platelet Count 230 T/CUMM (130-400); Red Blood Count 2.54 MC/CUMM (3.8-5.5); Red Cell Distribution Width 14.2 % (9.3-17.3); White Blood Count 6.9 T/CUMM (4-12)
[2019-04-24 05:23] LABS: Albumin 2.3 G/DL (3.4-5.0); Bilirubin,Total 1.2 MG/DL (0.2-1.0); Calcium 8.6 MG/DL (8.5-10.1); Osmolality,Calculated 289.8 MOS/KG (273-304); Total Protein 5.6 G/DL (6.4-8.3)
[2019-04-24] MEDS: ALBUTEROL/IPRATROPIUM 3 ML NEB RESP TX SCH ×3 (07:23→19:00)
[2019-04-24] MEDS ORDERED: SODIUM CHLORIDE 0.9% 1,000 ML IV PRN (08:30)
[2019-04-24] MEDS: TERAZOSIN 1 MG CAPSULE PO SCH (09:45)
[2019-04-24] MEDS: MULTIVITAMIN (CENTRUM) TABLET PO SCH (09:45)
[2019-04-24] MEDS: FUROSEMIDE 20 MG TABLET PO SCH (09:45)
[2019-04-24] MEDS: cloNIDine 0.1 MG TABLET PO SCH ×3 (09:45→21:13)
[2019-04-24] MEDS: gemfibroziL 600 MG TABLET PO SCH ×2 (09:46→21:12)
[2019-04-24] MEDS: NYSTATIN 500,000 UNIT/5 ML UDCUP SWISH/SWAL SCH ×4 (09:46→21:13)
[2019-04-24] MEDS: ASPIRIN EC 81 MG TABLET PO SCH (09:46)
[2019-04-24] MEDS: GABAPENTIN 600 MG TABLET PO SCH ×2 (09:46→21:12)
[2019-04-24] MEDS: PANTOPRAZOLE 40 MG TABLET PO SCH (09:46)
[2019-04-24] MEDS: predniSONE 20 MG TABLET PO SCH (09:46)
[2019-04-24] MEDS: glipiZIDE 10 MG TABLET PO SCH (09:46)
[2019-04-24] MEDS: FERROUS SULFATE 325 MG TABLET PO SCH ×2 (09:46→21:13)
[2019-04-24] MEDS: POTASSIUM CHLORIDE 20 MEQ TABLET PO SCH (09:46)
[2019-04-24] MEDS: DICYCLOMINE 10 MG CAPSULE PO SCH ×2 (09:47→21:13)
[2019-04-24] MEDS: ASCORBIC ACID 500 MG TABLET PO SCH (09:47)
[2019-04-24] MEDS: DOCUSATE SODIUM 100 MG CAPSULE PO SCH ×2 (09:47→21:13)
[2019-04-24] MEDS: FLUTICASONE/SALMETEROL 250-50 DISKUS 14 DOSE INH SCH ×2 (09:53→21:14)
[2019-04-24] MEDS: ACETAMINOPHEN 325 MG TABLET PO PRN (14:04)
[2019-04-24] MEDS: INSULIN LISPRO 100 UNIT/ML SUBCUT SCH ×4 (14:11→21:16)
[2019-04-24 19:57] LABS: Apearance,Urine CLOUDY (Clear); Bilirubin,Urine Negative (Negative); Blood, Urine Negative (Negative); Glucose,Urine (UA) Negative (Negative); Ketones,Urine Negative (Negative); Mucus,Urine Occasional /LPF (Occasional); Nitrite,Urine Negative (Negative); Protein,Urine Negative; Squamous Epithelial Cell,Urine Occasional /HPF (0-10); Urine Color Yellow (Yellow); Urine Specific Gravity 1.006 (1.001-1.035); Urine Urobilinogen < 2.0 EU/DL (0.2-1.0); WBC,Urine 573 /HPF (0-6)
[2019-04-24 19:58] LABS: Bacteria,Urine Rare /HPF (Few)
[2019-04-24 20:58] LABS: Hematocrit 29.4 VOL% (35.7-47.0)
[2019-04-24 21:00] LABS: Hemoglobin 9.4 GM/DL (12.0-16.0)
[2019-04-25 01:36] LABS: Hematocrit 29.1 VOL% (35.7-47.0); Hemoglobin 9.4 GM/DL (12.0-16.0)
[2019-04-25 04:52] LABS: Basophils % 0.4 % (0.0-0.8); Eosinophils # 0.4 10*3/uL (0.0-0.87); Eosinophils % 4.6 % (0.00-10.9); Hematocrit 28.7 VOL% (35.7-47.0); Hemoglobin 9.1 GM/DL (12.0-16.0); Immature Granulocytes % 1.2 %; Lymphocytes # 0.8 10*3/uL (1.4-4.0); Lymphocytes % 9.7 % (21.3-54.2); Mean Corpuscular HGB Conc 31.7 GM/DL (32-36); Mean Corpuscular Volume 90.5 FL (87-102); Mean Platelet Volume 11.4 FL (9.6-12.0); Neutrophils % 75.1 % (38.7-73.9); Platelet Count 272 T/CUMM (130-400); Red Blood Count 3.17 MC/CUMM (3.8-5.5); Red Cell Distribution Width 14.1 % (9.3-17.3)
[2019-04-25 05:22] LABS: Albumin 2.4 G/DL (3.4-5.0); Bilirubin,Total 0.4 MG/DL (0.2-1.0); Calcium 8.8 MG/DL (8.5-10.1); Osmolality,Calculated 291.4 MOS/KG (273-304); Total Protein 5.9 G/DL (6.4-8.3)
[2019-04-25] MEDS: ALBUTEROL/IPRATROPIUM 3 ML NEB RESP TX SCH (07:37)
[2019-04-25] MEDS ORDERED: ALBUTEROL/IPRATROPIUM 3 ML NEB RESP TX PRN (07:46)
[2019-04-25] MEDS: INSULIN LISPRO 100 UNIT/ML SUBCUT SCH ×4 (09:56→21:04)
[2019-04-25] MEDS: PANTOPRAZOLE 40 MG TABLET PO SCH (09:57)
[2019-04-25] MEDS: glipiZIDE 10 MG TABLET PO SCH (09:57)
[2019-04-25] MEDS: FUROSEMIDE 20 MG TABLET PO SCH (09:57)
[2019-04-25] MEDS: gemfibroziL 600 MG TABLET PO SCH ×2 (09:57→21:04)
[2019-04-25] MEDS: POTASSIUM CHLORIDE 20 MEQ TABLET PO SCH (09:57)
[2019-04-25] MEDS: FERROUS SULFATE 325 MG TABLET PO SCH ×2 (09:58→21:03)
[2019-04-25] MEDS: cefTRIAXone 1,000 MG in SYRINGE 1 EACH IV SCH (09:58)
[2019-04-25] MEDS: NYSTATIN 500,000 UNIT/5 ML UDCUP SWISH/SWAL SCH ×4 (09:58→21:02)
[2019-04-25] MEDS: cloNIDine 0.1 MG TABLET PO SCH ×3 (09:58→21:03)
[2019-04-25] MEDS: MULTIVITAMIN (CENTRUM) TABLET PO SCH (09:58)
[2019-04-25] MEDS: predniSONE 20 MG TABLET PO SCH (09:58)
[2019-04-25] MEDS: methylPREDNISolone SOD SUC 40 MG/1 ML VIAL IV SCH ×3 (09:59→23:22)
[2019-04-25] MEDS: DICYCLOMINE 10 MG CAPSULE PO SCH ×2 (09:59→21:03)
[2019-04-25] MEDS: ASPIRIN EC 81 MG TABLET PO SCH (09:59)
[2019-04-25] MEDS: DOCUSATE SODIUM 100 MG CAPSULE PO SCH ×2 (10:00→21:03)
[2019-04-25] MEDS: FLUTICASONE/SALMETEROL 250-50 DISKUS 14 DOSE INH SCH ×2 (10:09→21:02)
[2019-04-25] MEDS: ASCORBIC ACID 500 MG TABLET PO SCH (10:10)
[2019-04-25] MEDS: GABAPENTIN 600 MG TABLET PO SCH ×2 (10:15→21:03)
[2019-04-25] MEDS: TERAZOSIN 1 MG CAPSULE PO SCH ×3 (10:52→21:55)
[2019-04-25] MEDS: ACETAMINOPHEN 325 MG TABLET PO PRN (21:12)
[2019-04-26 05:06] LABS: Basophils % 0.2 % (0.0-0.8); Eosinophils % 0.2 % (0.00-10.9); Hematocrit 29.9 VOL% (35.7-47.0); Hemoglobin 9.6 GM/DL (12.0-16.0); Immature Granulocytes % 1.4 %; Immature Granulocytes Absolute 0.06 #; Lymphocytes # 0.4 10*3/uL (1.4-4.0); Lymphocytes % 9.6 % (21.3-54.2); Mean Corpuscular HGB Conc 32.1 GM/DL (32-36); Mean Corpuscular Volume 90.3 FL (87-102); Monocytes % 3.4 % (1.7-12.7); Neutrophils % 85.2 % (38.7-73.9); Platelet Count 304 T/CUMM (130-400); Red Blood Count 3.31 MC/CUMM (3.8-5.5); Red Cell Distribution Width 14.2 % (9.3-17.3); White Blood Count 4.4 T/CUMM (4-12)
[2019-04-26 05:31] LABS: Alanine Aminotransferase 9 U/L (13-56); Albumin 2.4 G/DL (3.4-5.0); Alkaline Phosphatase 62 U/L (45-117); Aspartate Amino Transferase 4 U/L (0-37); Bilirubin,Total < 0.39 MG/DL (0.2-1.0); Blood Urea Nitrogen 59 MG/DL (7-18); Estimated Glom Filtration Rate 27 ML/MIN; Glucose 250 MG/DL (74-106); Osmolality,Calculated 301.5 MOS/KG (273-304); Total Protein 6.1 G/DL (6.4-8.3)
[2019-04-26] MEDS: INSULIN LISPRO 100 UNIT/ML SUBCUT SCH ×4 (09:43→20:55)
[2019-04-26] MEDS: cefTRIAXone 1,000 MG in SYRINGE 1 EACH IV SCH (09:44)
[2019-04-26] MEDS: predniSONE 20 MG TABLET PO SCH (09:44)
[2019-04-26] MEDS: gemfibroziL 600 MG TABLET PO SCH ×2 (09:44→20:55)
[2019-04-26] MEDS: DOCUSATE SODIUM 100 MG CAPSULE PO SCH ×2 (09:44→20:54)
[2019-04-26] MEDS: FERROUS SULFATE 325 MG TABLET PO SCH ×2 (09:44→20:55)
[2019-04-26] MEDS: cloNIDine 0.1 MG TABLET PO SCH ×3 (09:44→20:54)
[2019-04-26] MEDS: PANTOPRAZOLE 40 MG TABLET PO SCH (09:44)
[2019-04-26] MEDS: FLUTICASONE/SALMETEROL 250-50 DISKUS 14 DOSE INH SCH ×2 (09:44→20:53)
[2019-04-26] MEDS: NYSTATIN 500,000 UNIT/5 ML UDCUP SWISH/SWAL SCH ×4 (09:44→20:55)
[2019-04-26] MEDS: glipiZIDE 10 MG TABLET PO SCH (09:45)
[2019-04-26] MEDS: MULTIVITAMIN (CENTRUM) TABLET PO SCH (09:45)
[2019-04-26] MEDS: ASCORBIC ACID 500 MG TABLET PO SCH (09:45)
[2019-04-26] MEDS: GABAPENTIN 600 MG TABLET PO SCH ×2 (09:45→20:54)
[2019-04-26] MEDS: TERAZOSIN 1 MG CAPSULE PO SCH ×2 (09:45→20:55)
[2019-04-26] MEDS: DICYCLOMINE 10 MG CAPSULE PO SCH ×2 (09:45→20:55)
[2019-04-26] MEDS: ASPIRIN EC 81 MG TABLET PO SCH (09:45)
[2019-04-26] MEDS: FUROSEMIDE 20 MG TABLET PO SCH (09:45)
[2019-04-26] MEDS: POTASSIUM CHLORIDE 20 MEQ TABLET PO SCH (09:48)
[2019-04-27 05:24] LABS: Basophils % 0.5 % (0.0-0.8); Eosinophils # 0.3 10*3/uL (0.0-0.87); Eosinophils % 4.4 % (0.00-10.9); Hematocrit 28.4 VOL% (35.7-47.0); Immature Granulocytes % 1.6 %; Immature Granulocytes Absolute 0.12 #; Lymphocytes # 1.1 10*3/uL (1.4-4.0); Lymphocytes % 15.1 % (21.3-54.2); Mean Corpuscular HGB Conc 31.7 GM/DL (32-36); Mean Corpuscular Volume 90.7 FL (87-102); Mean Platelet Volume 11.2 FL (9.6-12.0); Monocytes % 11.4 % (1.7-12.7); Platelet Count 331 T/CUMM (130-400); Red Blood Count 3.13 MC/CUMM (3.8-5.5); Red Cell Distribution Width 14.5 % (9.3-17.3); White Blood Count 7.6 T/CUMM (4-12)
[2019-04-27 05:44] LABS: Albumin 2.4 G/DL (3.4-5.0); Bilirubin,Total 0.4 MG/DL (0.2-1.0); Calcium 9.2 MG/DL (8.5-10.1); Osmolality,Calculated 297.3 MOS/KG (273-304); Total Protein 5.7 G/DL (6.4-8.3)
[2019-04-27] MEDS: INSULIN LISPRO 100 UNIT/ML SUBCUT SCH ×4 (08:44→21:31)
[2019-04-27] MEDS: glipiZIDE 10 MG TABLET PO SCH (08:44)
[2019-04-27] MEDS: ASCORBIC ACID 500 MG TABLET PO SCH (10:42)
[2019-04-27] MEDS: PANTOPRAZOLE 40 MG TABLET PO SCH (10:42)
[2019-04-27] MEDS: DOCUSATE SODIUM 100 MG CAPSULE PO SCH ×2 (10:43→21:30)
[2019-04-27] MEDS: gemfibroziL 600 MG TABLET PO SCH ×2 (10:43→21:30)
[2019-04-27] MEDS: MULTIVITAMIN (CENTRUM) TABLET PO SCH (10:43)
[2019-04-27] MEDS: predniSONE 20 MG TABLET PO SCH (10:43)
[2019-04-27] MEDS: FERROUS SULFATE 325 MG TABLET PO SCH ×2 (10:43→21:30)
[2019-04-27] MEDS: FUROSEMIDE 20 MG TABLET PO SCH (10:43)
[2019-04-27] MEDS: NYSTATIN 500,000 UNIT/5 ML UDCUP SWISH/SWAL SCH ×4 (10:43→21:30)
[2019-04-27] MEDS: GABAPENTIN 600 MG TABLET PO SCH ×2 (10:43→21:30)
[2019-04-27] MEDS: ASPIRIN EC 81 MG TABLET PO SCH (10:44)
[2019-04-27] MEDS: DICYCLOMINE 10 MG CAPSULE PO SCH ×2 (10:44→21:30)
[2019-04-27] MEDS: cefTRIAXone 1,000 MG in SYRINGE 1 EACH IV SCH (10:50)
[2019-04-27] MEDS: TERAZOSIN 1 MG CAPSULE PO SCH ×2 (10:50→21:30)
[2019-04-27] MEDS: cloNIDine 0.1 MG TABLET PO SCH ×3 (10:50→21:30)
[2019-04-27] MEDS: FLUTICASONE/SALMETEROL 250-50 DISKUS 14 DOSE INH SCH ×2 (10:52→21:29)
[2019-04-27] MEDS: ACETAMINOPHEN 325 MG TABLET PO PRN (18:16)
[2019-04-28 05:03] LABS: Basophils # 0.1 10*3/uL (0.0-0.2); Basophils % 0.6 % (0.0-0.8); Eosinophils # 0.6 10*3/uL (0.0-0.87); Hematocrit 29.4 VOL% (35.7-47.0); Hemoglobin 9.2 GM/DL (12.0-16.0); Immature Granulocytes % 1.6 %; Immature Granulocytes Absolute 0.13 #; Lymphocytes # 0.7 10*3/uL (1.4-4.0); Mean Corpuscular HGB Conc 31.3 GM/DL (32-36); Mean Corpuscular Volume 92.5 FL (87-102); Mean Platelet Volume 10.8 FL (9.6-12.0); Monocytes % 8.6 % (1.7-12.7); Neutrophils % 73.2 % (38.7-73.9); Platelet Count 348 T/CUMM (130-400); Red Blood Count 3.18 MC/CUMM (3.8-5.5); Red Cell Distribution Width 14.6 % (9.3-17.3); White Blood Count 8.2 T/CUMM (4-12)
[2019-04-28 05:17] LABS: Calcium 8.7 MG/DL (8.5-10.1); Osmolality,Calculated 300.1 MOS/KG (273-304)
[2019-04-28] MEDS: ACETAMINOPHEN 325 MG TABLET PO PRN (06:30)
[2019-04-28] MEDS: predniSONE 20 MG TABLET PO SCH (09:32)
[2019-04-28] MEDS: cloNIDine 0.1 MG TABLET PO SCH ×3 (09:32→21:02)
[2019-04-28] MEDS: NYSTATIN 500,000 UNIT/5 ML UDCUP SWISH/SWAL SCH ×4 (09:32→21:01)
[2019-04-28] MEDS: glipiZIDE 10 MG TABLET PO SCH (09:32)
[2019-04-28] MEDS: DOCUSATE SODIUM 100 MG CAPSULE PO SCH ×2 (09:33→21:02)
[2019-04-28] MEDS: PANTOPRAZOLE 40 MG TABLET PO SCH (09:33)
[2019-04-28] MEDS: cefTRIAXone 1,000 MG in SYRINGE 1 EACH IV SCH (09:33)
[2019-04-28] MEDS: FERROUS SULFATE 325 MG TABLET PO SCH ×2 (09:33→21:01)
[2019-04-28] MEDS: GABAPENTIN 600 MG TABLET PO SCH ×2 (09:33→21:01)
[2019-04-28] MEDS: gemfibroziL 600 MG TABLET PO SCH ×2 (09:33→21:01)
[2019-04-28] MEDS: FUROSEMIDE 20 MG TABLET PO SCH (09:33)
[2019-04-28] MEDS: DICYCLOMINE 10 MG CAPSULE PO SCH ×2 (09:33→21:02)
[2019-04-28] MEDS: TERAZOSIN 1 MG CAPSULE PO SCH ×2 (09:33→21:02)
[2019-04-28] MEDS: MULTIVITAMIN (CENTRUM) TABLET PO SCH (09:33)
[2019-04-28] MEDS: ASPIRIN EC 81 MG TABLET PO SCH (09:33)
[2019-04-28] MEDS: ASCORBIC ACID 500 MG TABLET PO SCH (09:33)
[2019-04-28] MEDS: FLUTICASONE/SALMETEROL 250-50 DISKUS 14 DOSE INH SCH ×2 (09:34→21:03)
[2019-04-28] MEDS: INSULIN LISPRO 100 UNIT/ML SUBCUT SCH ×4 (09:34→21:02)
[2019-04-28] MEDS: POLYETHYLENE GLYCOL POWDER 17 GM PACK PO SCH (17:30)
[2019-04-29 05:32] LABS: Calcium 8.5 MG/DL (8.5-10.1); Osmolality,Calculated 301.3 MOS/KG (273-304)
[2019-04-29] MEDS: INSULIN LISPRO 100 UNIT/ML SUBCUT SCH ×4 (08:19→22:37)
[2019-04-29] MEDS: cefTRIAXone 1,000 MG in SYRINGE 1 EACH IV SCH (09:38)
[2019-04-29] MEDS: MULTIVITAMIN (CENTRUM) TABLET PO SCH (09:38)
[2019-04-29] MEDS: TERAZOSIN 1 MG CAPSULE PO SCH ×2 (09:38→22:35)
[2019-04-29] MEDS: GABAPENTIN 600 MG TABLET PO SCH ×2 (09:38→22:35)
[2019-04-29] MEDS: NYSTATIN 500,000 UNIT/5 ML UDCUP SWISH/SWAL SCH ×4 (09:38→22:36)
[2019-04-29] MEDS: FUROSEMIDE 20 MG TABLET PO SCH (09:38)
[2019-04-29] MEDS: ASPIRIN EC 81 MG TABLET PO SCH (09:38)
[2019-04-29] MEDS: ASCORBIC ACID 500 MG TABLET PO SCH (09:39)
[2019-04-29] MEDS: FLUTICASONE/SALMETEROL 250-50 DISKUS 14 DOSE INH SCH ×2 (09:39→22:31)
[2019-04-29] MEDS: DICYCLOMINE 10 MG CAPSULE PO SCH ×2 (09:39→22:36)
[2019-04-29] MEDS: POLYETHYLENE GLYCOL POWDER 17 GM PACK PO SCH ×2 (09:39→17:44)
[2019-04-29] MEDS: gemfibroziL 600 MG TABLET PO SCH ×2 (09:39→22:36)
[2019-04-29] MEDS: FERROUS SULFATE 325 MG TABLET PO SCH ×2 (09:39→22:35)
[2019-04-29] MEDS: DOCUSATE SODIUM 100 MG CAPSULE PO SCH ×2 (09:39→22:35)
[2019-04-29] MEDS: PANTOPRAZOLE 40 MG TABLET PO SCH (09:39)
[2019-04-29] MEDS: glipiZIDE 10 MG TABLET PO SCH (09:39)
[2019-04-29] MEDS: cloNIDine 0.1 MG TABLET PO SCH ×3 (09:39→22:36)
[2019-04-29] MEDS: predniSONE 20 MG TABLET PO SCH (09:39)
[2019-04-29] MEDS: ACETAMINOPHEN 325 MG TABLET PO PRN (22:32)
[2019-04-30] MEDS: cefTRIAXone 1,000 MG in SYRINGE 1 EACH IV SCH (10:03)
[2019-04-30] MEDS: FLUTICASONE/SALMETEROL 250-50 DISKUS 14 DOSE INH SCH ×2 (12:57→21:13)
[2019-04-30] MEDS: INSULIN LISPRO 100 UNIT/ML SUBCUT SCH ×3 (12:57→21:11)
[2019-04-30] MEDS: FERROUS SULFATE 325 MG TABLET PO SCH ×2 (13:19→21:13)
[2019-04-30] MEDS: DICYCLOMINE 10 MG CAPSULE PO SCH ×2 (13:19→21:13)
[2019-04-30] MEDS: DOCUSATE SODIUM 100 MG CAPSULE PO SCH ×2 (13:19→21:13)
[2019-04-30] MEDS: TERAZOSIN 1 MG CAPSULE PO SCH ×2 (13:19→21:13)
[2019-04-30] MEDS: cloNIDine 0.1 MG TABLET PO SCH ×3 (13:19→21:13)
[2019-04-30] MEDS: GABAPENTIN 600 MG TABLET PO SCH ×2 (13:20→21:13)
[2019-04-30] MEDS: gemfibroziL 600 MG TABLET PO SCH ×2 (13:20→21:13)
[2019-04-30] MEDS: NYSTATIN 500,000 UNIT/5 ML UDCUP SWISH/SWAL SCH ×3 (13:20→21:13)
[2019-04-30] MEDS: glipiZIDE 10 MG TABLET PO SCH (13:30)
[2019-04-30] MEDS: POLYETHYLENE GLYCOL POWDER 17 GM PACK PO SCH (15:36)
[2019-04-30] MEDS: predniSONE 20 MG TABLET PO SCH (15:37)
[2019-04-30] MEDS: PANTOPRAZOLE 40 MG TABLET PO SCH (15:37)
[2019-04-30] MEDS: FUROSEMIDE 20 MG TABLET PO SCH (15:37)
[2019-04-30] MEDS: ASCORBIC ACID 500 MG TABLET PO SCH (15:37)
[2019-04-30] MEDS: MULTIVITAMIN (CENTRUM) TABLET PO SCH (15:37)
[2019-04-30] MEDS: ASPIRIN EC 81 MG TABLET PO SCH (15:37)
[2019-04-30] MEDS: ONDANSETRON 4 MG/2 ML VIAL IV PRN (21:09)
[2019-04-30] MEDS: ACETAMINOPHEN 325 MG TABLET PO PRN (21:19)
[2019-05-01 05:22] LABS: Basophils # 0.1 10*3/uL (0.0-0.2); Basophils % 0.6 % (0.0-0.8); Eosinophils # 0.3 10*3/uL (0.0-0.87); Eosinophils % 4.2 % (0.00-10.9); Hemoglobin 8.3 GM/DL (12.0-16.0); Immature Granulocytes % 1.7 %; Immature Granulocytes Absolute 0.14 #; Lymphocytes # 1.3 10*3/uL (1.4-4.0); Lymphocytes % 15.6 % (21.3-54.2); Mean Corpuscular HGB Conc 30.7 GM/DL (32-36); Mean Corpuscular Volume 94.1 FL (87-102); Mean Platelet Volume 10.7 FL (9.6-12.0); Monocytes % 9.5 % (1.7-12.7); Neutrophils % 68.4 % (38.7-73.9); Platelet Count 391 T/CUMM (130-400); Red Blood Count 2.87 MC/CUMM (3.8-5.5); Red Cell Distribution Width 14.5 % (9.3-17.3)
[2019-05-01 05:49] LABS: Albumin 2.7 G/DL (3.4-5.0); Bilirubin,Total 1.3 MG/DL (0.2-1.0); Calcium 8.6 MG/DL (8.5-10.1); Osmolality,Calculated 296.1 MOS/KG (273-304); Total Protein 5.8 G/DL (6.4-8.3)
[2019-05-01] MEDS: gemfibroziL 600 MG TABLET PO SCH ×2 (09:06→20:52)
[2019-05-01] MEDS: FERROUS SULFATE 325 MG TABLET PO SCH ×2 (09:06→20:52)
[2019-05-01] MEDS: GABAPENTIN 600 MG TABLET PO SCH ×2 (09:06→20:52)
[2019-05-01] MEDS: DOCUSATE SODIUM 100 MG CAPSULE PO SCH ×2 (09:06→20:52)
[2019-05-01] MEDS: PANTOPRAZOLE 40 MG TABLET PO SCH (09:06)
[2019-05-01] MEDS: cefTRIAXone 1,000 MG in SYRINGE 1 EACH IV SCH ×2 (09:06→14:46)
[2019-05-01] MEDS: glipiZIDE 10 MG TABLET PO SCH (09:06)
[2019-05-01] MEDS: predniSONE 20 MG TABLET PO SCH (09:07)
[2019-05-01] MEDS: DICYCLOMINE 10 MG CAPSULE PO SCH ×2 (09:07→20:53)
[2019-05-01] MEDS: ASPIRIN EC 81 MG TABLET PO SCH (09:07)
[2019-05-01] MEDS: MULTIVITAMIN (CENTRUM) TABLET PO SCH (09:07)
[2019-05-01] MEDS: POLYETHYLENE GLYCOL POWDER 17 GM PACK PO SCH (09:07)
[2019-05-01] MEDS: FUROSEMIDE 20 MG TABLET PO SCH (09:07)
[2019-05-01] MEDS: NYSTATIN 500,000 UNIT/5 ML UDCUP SWISH/SWAL SCH ×4 (09:07→20:52)
[2019-05-01] MEDS: cloNIDine 0.1 MG TABLET PO SCH ×3 (09:07→20:52)
[2019-05-01] MEDS: ASCORBIC ACID 500 MG TABLET PO SCH (09:07)
[2019-05-01] MEDS: FLUTICASONE/SALMETEROL 250-50 DISKUS 14 DOSE INH SCH ×2 (09:07→20:53)
[2019-05-01] MEDS: TERAZOSIN 1 MG CAPSULE PO SCH ×2 (09:07→20:52)
[2019-05-01] MEDS: INSULIN LISPRO 100 UNIT/ML SUBCUT SCH ×4 (12:54→20:59)
[2019-05-01] MEDS: ACETAMINOPHEN 325 MG TABLET PO PRN (20:52)
[2019-05-02 05:34] LABS: Basophils # 0.1 10*3/uL (0.0-0.2); Basophils % 0.5 % (0.0-0.8); Eosinophils # 0.4 10*3/uL (0.0-0.87); Eosinophils % 3.8 % (0.00-10.9); Hematocrit 24.9 VOL% (35.7-47.0); Hemoglobin 7.6 GM/DL (12.0-16.0); Immature Granulocytes % 1.7 %; Immature Granulocytes Absolute 0.16 #; Lymphocytes # 1.1 10*3/uL (1.4-4.0); Lymphocytes % 11.6 % (21.3-54.2); Mean Corpuscular HGB Conc 30.5 GM/DL (32-36); Mean Corpuscular Volume 94.3 FL (87-102); Mean Platelet Volume 10.6 FL (9.6-12.0); Neutrophils % 72.4 % (38.7-73.9); Platelet Count 384 T/CUMM (130-400); Red Blood Count 2.64 MC/CUMM (3.8-5.5); Red Cell Distribution Width 14.7 % (9.3-17.3); White Blood Count 9.4 T/CUMM (4-12)
[2019-05-02 05:54] LABS: Calcium 8.8 MG/DL (8.5-10.1); Osmolality,Calculated 289.5 MOS/KG (273-304)
[2019-05-02 07:42] VITALS: BP 165/50
[2019-05-02] MEDS: INSULIN LISPRO 100 UNIT/ML SUBCUT SCH (07:44)
[2019-05-02] MEDS: DOCUSATE SODIUM 100 MG CAPSULE PO SCH (08:11)
[2019-05-02] MEDS: TERAZOSIN 1 MG CAPSULE PO SCH (08:11)
[2019-05-02] MEDS: MULTIVITAMIN (CENTRUM) TABLET PO SCH (08:11)
[2019-05-02] MEDS: NYSTATIN 500,000 UNIT/5 ML UDCUP SWISH/SWAL SCH (08:11)
[2019-05-02] MEDS: ASPIRIN EC 81 MG TABLET PO SCH (08:11)
[2019-05-02] MEDS: cloNIDine 0.1 MG TABLET PO SCH (08:11)
[2019-05-02] MEDS: gemfibroziL 600 MG TABLET PO SCH (08:11)
[2019-05-02] MEDS: POLYETHYLENE GLYCOL POWDER 17 GM PACK PO SCH (08:11)
[2019-05-02] MEDS: FUROSEMIDE 20 MG TABLET PO SCH (08:11)
[2019-05-02] MEDS: PANTOPRAZOLE 40 MG TABLET PO SCH (08:11)
[2019-05-02] MEDS: DICYCLOMINE 10 MG CAPSULE PO SCH (08:12)
[2019-05-02] MEDS: GABAPENTIN 600 MG TABLET PO SCH (08:12)
[2019-05-02] MEDS: glipiZIDE 10 MG TABLET PO SCH (08:12)
[2019-05-02] MEDS: FERROUS SULFATE 325 MG TABLET PO SCH (08:12)
[2019-05-02] MEDS: predniSONE 20 MG TABLET PO SCH (08:12)
[2019-05-02] MEDS: ASCORBIC ACID 500 MG TABLET PO SCH (08:12)
[2019-05-02] MEDS: FLUTICASONE/SALMETEROL 250-50 DISKUS 14 DOSE INH SCH (08:17)
== END 2019-05-02 10:09 | disposition home or self-care (01) | DRG 682 ==
LOC: N.ED 10:15 → N.EDINP 10:15 → N.5E 14:11
PROVIDERS: ADMIT Family Medicine; ATTEND Family Medicine

== ENCOUNTER 2019-06-23 10:28 | Inpatient (IN) ==
[2019-06-23] MEDS ORDERED: ALBUTEROL/IPRATROPIUM 3 ML NEB RESP TX STA (10:56)
[2019-06-23] MEDS ORDERED: methylPREDNISolone SOD SUC 125 MG/2 ML VIAL IV STA (11:05)
[2019-06-23 11:34] LABS: Basophils # 0.1 10*3/uL (0.0-0.2); Basophils % 0.3 % (0.0-0.8); Eosinophils # 0.2 10*3/uL (0.0-0.87); Hematocrit 21.5 VOL% (35.7-47.0); Immature Granulocytes % 0.5 %; Immature Granulocytes Absolute 0.08 #; Lymphocytes # 0.6 10*3/uL (1.4-4.0); Lymphocytes % 4.1 % (21.3-54.2); Mean Corpuscular HGB Conc 29.8 GM/DL (32-36); Mean Corpuscular Volume 94.7 FL (87-102); Mean Platelet Volume 11.8 FL (9.6-12.0); Monocytes % 6.8 % (1.7-12.7); Neutrophils % 87.3 % (38.7-73.9); Platelet Count 306 T/CUMM (130-400); Red Blood Count 2.27 MC/CUMM (3.8-5.5); Red Cell Distribution Width 14.6 % (9.3-17.3); White Blood Count 14.8 T/CUMM (4-12)
[2019-06-23 11:47] LABS: Hemoglobin 6.4 GM/DL (12.0-16.0); PT Patient Result 10.5 SECS (9.6-12.2); Partial Thromboplastin Time 24.9 SECS (20.8-36.0)
[2019-06-23 12:10] LABS: Albumin 3.8 G/DL (3.4-5.0); Bilirubin,Total 0.4 MG/DL (0.2-1.0); Calcium 9.2 MG/DL (8.5-10.1); Osmolality,Calculated 296.8 MOS/KG (273-304); Total Protein 6.4 G/DL (6.4-8.3)
[2019-06-23 12:11] LABS: Hypochromasia 1+; Lymphocytes 3 % (20-55); Platelet Estimate Adequate; Segmented Neutrophils 94 % (50-85); Total Cells Counted 100
[2019-06-23 12:12] LABS: Ovalocytes Slight
[2019-06-23] MEDS ORDERED: SODIUM CHLORIDE 0.9% 1,000 ML IV PRN (14:55)
[2019-06-23] MEDS ORDERED: ACETAMINOPHEN 325 MG TABLET PO PRN (14:55)
[2019-06-23 15:46] LABS: Troponin I 0.035 NG/ML (0.00-0.045)
[2019-06-23] MEDS ORDERED: DEXTROSE 50% 25 GM/50 ML VIAL IV PRN (19:29)
[2019-06-23] MEDS ORDERED: GLUCAGON 1 MG VIAL IM PRN (19:29)
[2019-06-23] MEDS ORDERED: FUROSEMIDE 20 MG/2 ML VIAL IV ONE (19:53)
[2019-06-23] MEDS: cefTRIAXone 1,000 MG in SYRINGE 1 EACH IV SCH (20:34)
[2019-06-23] MEDS: methylPREDNISolone SOD SUC 40 MG/1 ML VIAL IV SCH (20:35)
[2019-06-23] MEDS: metroNIDAZOLE INJ 500 MG in PREMIX 1 EACH IV SCH (20:36)
[2019-06-23] MEDS: cloNIDine 0.1 MG TABLET PO SCH (20:37)
[2019-06-23] MEDS: DICYCLOMINE 10 MG CAPSULE PO SCH (20:37)
[2019-06-23] MEDS: DOCUSATE SODIUM 100 MG CAPSULE PO SCH (20:37)
[2019-06-23] MEDS: GABAPENTIN 300 MG CAPSULE PO SCH (20:37)
[2019-06-23] MEDS: BUDESONIDE 0.25 MG/2 ML NEB RESP TX SCH (21:26)
[2019-06-23] MEDS: ALBUTEROL/IPRATROPIUM 3 ML NEB RESP TX SCH (21:26)
[2019-06-24] MEDS: ALBUTEROL/IPRATROPIUM 3 ML NEB RESP TX SCH ×4 (01:03→23:09)
[2019-06-24] MEDS: metroNIDAZOLE INJ 500 MG in PREMIX 1 EACH IV SCH ×3 (04:42→22:02)
[2019-06-24] MEDS: methylPREDNISolone SOD SUC 40 MG/1 ML VIAL IV SCH ×3 (05:28→22:01)
[2019-06-24 06:01] LABS: Hematocrit 24.2 VOL% (35.7-47.0); Hemoglobin 7.7 GM/DL (12.0-16.0); Immature Granulocytes % 0.8 %; Immature Granulocytes Absolute 0.04 #; Lymphocytes # 0.3 10*3/uL (1.4-4.0); Lymphocytes % 5.6 % (21.3-54.2); Mean Corpuscular HGB Conc 31.8 GM/DL (32-36); Mean Corpuscular Volume 90.6 FL (87-102); Monocytes % 6.4 % (1.7-12.7); Neutrophils % 87.2 % (38.7-73.9); Platelet Count 228 T/CUMM (130-400); Red Blood Count 2.67 MC/CUMM (3.8-5.5); Red Cell Distribution Width 14.6 % (9.3-17.3); White Blood Count 4.9 T/CUMM (4-12)
[2019-06-24 06:20] LABS: Calcium 6.7 MG/DL (8.5-10.1); Osmolality,Calculated 290.5 MOS/KG (273-304)
[2019-06-24] MEDS: BUDESONIDE 0.25 MG/2 ML NEB RESP TX SCH ×2 (07:37→23:09)
[2019-06-24] MEDS: INSULIN REGULAR 100 UNIT/ML SUBCUT SCH ×2 (08:13→16:50)
[2019-06-24] MEDS: ASPIRIN EC 81 MG TABLET PO SCH (08:50)
[2019-06-24] MEDS: PANTOPRAZOLE 40 MG TABLET PO SCH (08:50)
[2019-06-24] MEDS: cloNIDine 0.1 MG TABLET PO SCH ×3 (08:50→21:59)
[2019-06-24] MEDS: DICYCLOMINE 10 MG CAPSULE PO SCH ×2 (08:50→21:59)
[2019-06-24] MEDS: DOCUSATE SODIUM 100 MG CAPSULE PO SCH (08:51)
[2019-06-24] MEDS ORDERED: FUROSEMIDE 20 MG/2 ML VIAL IV SCH (09:00)
[2019-06-24] MEDS ORDERED: DOCUSATE SODIUM 100 MG CAPSULE PO SCH (09:00)
[2019-06-24 10:27] LABS: % Iron Saturation 8.5 % (18-50)
[2019-06-24] MEDS: BISACODYL 5 MG TABLET PO SCH ×2 (12:50→22:01)
[2019-06-24] MEDS: SERTRALINE 25 MG TABLET PO SCH (12:50)
[2019-06-24] MEDS ORDERED: POLYETHYLENE GLYCOL 3350/ELECTROLYTES 4,000 ML BOTTLE PO ONE (18:00)
[2019-06-24] MEDS ORDERED: MAGNESIUM CITRATE 300 ML BOTTLE PO ONE (21:00)
[2019-06-24] MEDS: cefTRIAXone 1,000 MG in SYRINGE 1 EACH IV SCH (22:00)
[2019-06-24] MEDS: GABAPENTIN 300 MG CAPSULE PO SCH (22:02)
[2019-06-24] MEDS ORDERED: SODIUM CHLORIDE 0.9% 1,000 ML IV PRN (23:58)
[2019-06-25] MEDS ORDERED: FUROSEMIDE 40 MG/4 ML VIAL IV ONE (00:03)
[2019-06-25] MEDS ORDERED: SODIUM POLYSTYRENE SULFATE 15 GM/60 ML BOTTLE PO STA (00:05)
[2019-06-25] MEDS ORDERED: CALCIUM (CITRATE) 200 MG TABLET PO ONE (00:22)
[2019-06-25] MEDS ORDERED: CIPROFLOXACIN INJ 400 MG in PREMIX 1 EACH IV SCH (01:00)
[2019-06-25] MEDS: BISACODYL 5 MG TABLET PO SCH ×2 (04:00→05:06)
[2019-06-25] MEDS: metroNIDAZOLE INJ 500 MG in PREMIX 1 EACH IV SCH (04:00)
[2019-06-25] MEDS: ALBUTEROL/IPRATROPIUM 3 ML NEB RESP TX SCH ×4 (04:06→19:11)
[2019-06-25 06:33] LABS: Hematocrit 24.3 VOL% (35.7-47.0); Hemoglobin 7.6 GM/DL (12.0-16.0); Immature Granulocytes % 0.5 %; Immature Granulocytes Absolute 0.05 #; Lymphocytes # 0.3 10*3/uL (1.4-4.0); Lymphocytes % 3.3 % (21.3-54.2); Mean Corpuscular HGB Conc 31.3 GM/DL (32-36); Mean Platelet Volume 12.1 FL (9.6-12.0); Monocytes % 2.8 % (1.7-12.7); Neutrophils % 93.4 % (38.7-73.9); Platelet Count 236 T/CUMM (130-400); Red Blood Count 2.67 MC/CUMM (3.8-5.5); Red Cell Distribution Width 14.7 % (9.3-17.3); White Blood Count 10.3 T/CUMM (4-12)
[2019-06-25] MEDS: methylPREDNISolone SOD SUC 40 MG/1 ML VIAL IV SCH ×3 (06:38→22:19)
[2019-06-25] MEDS ORDERED: MAGNESIUM CITRATE 300 ML BOTTLE PO ONE (06:50)
[2019-06-25 06:56] LABS: Calcium 8.8 MG/DL (8.5-10.1); Hypochromasia Slight; Lymphocytes 7 % (20-55); Osmolality,Calculated 292.4 MOS/KG (273-304); Platelet Estimate Normal; Polychromasia Few; Segmented Neutrophils 92 % (50-85); Total Cells Counted 100
[2019-06-25 07:11] LABS: Alanine Aminotransferase 14 U/L (13-56); Albumin 3.1 G/DL (3.4-5.0); Alkaline Phosphatase 35 U/L (45-117); Aspartate Amino Transferase 10 U/L (0-37); Bilirubin,Direct < 0.100 MG/DL (0.0-0.20); Bilirubin,Indirect 0.3 MG/DL (0.0-1.0); Bilirubin,Total < 0.39 MG/DL (0.2-1.0); Total Protein 5.9 G/DL (6.4-8.3)
[2019-06-25] MEDS: BUDESONIDE 0.25 MG/2 ML NEB RESP TX SCH ×2 (07:38→19:11)
[2019-06-25] MEDS ORDERED: FUROSEMIDE 40 MG/4 ML VIAL IV SCH (09:00)
[2019-06-25] MEDS ORDERED: LIDOCAINE 2% 5 ML VIAL ONE (10:00)
[2019-06-25] MEDS ORDERED: ETOMIDATE 20 MG/10 ML VIAL IV ONE (10:00)
[2019-06-25] MEDS ORDERED: PROPOFOL 200 MG/20 ML VIAL IV ONE (10:00)
[2019-06-25] MEDS: DICYCLOMINE 10 MG CAPSULE PO SCH ×2 (10:40→22:19)
[2019-06-25] MEDS: CALCIUM (CITRATE) 200 MG TABLET PO SCH ×2 (10:40→22:19)
[2019-06-25] MEDS: cloNIDine 0.1 MG TABLET PO SCH ×3 (10:40→22:19)
[2019-06-25] MEDS: ASPIRIN EC 81 MG TABLET PO SCH (10:40)
[2019-06-25] MEDS: INSULIN REGULAR 100 UNIT/ML SUBCUT SCH ×2 (10:40→17:10)
[2019-06-25] MEDS: SERTRALINE 25 MG TABLET PO SCH (10:41)
[2019-06-25] MEDS: PANTOPRAZOLE 40 MG TABLET PO SCH (10:41)
[2019-06-25] MEDS: FERROUS SULFATE 325 MG TABLET PO SCH (10:41)
[2019-06-25] MEDS ORDERED: FUROSEMIDE 20 MG/2 ML VIAL IV ONE (11:04)
[2019-06-25] MEDS ORDERED: hydrALAZINE 20 MG/1 ML VIAL IV PRN (11:47)
[2019-06-25] MEDS: SODIUM CHLORIDE 0.9% 1,000 ML IV SCH (12:45)
[2019-06-25] MEDS: LACTATED RINGERS 1,000 ML IV SCH (13:36)
[2019-06-25] MEDS ORDERED: GLUCAGON 1 MG VIAL IM PRN (15:40)
[2019-06-25] MEDS ORDERED: DEXTROSE 50% 25 GM/50 ML VIAL IV PRN (15:40)
[2019-06-25] MEDS: FUROSEMIDE 40 MG/4 ML VIAL IV SCH (16:51)
[2019-06-25] MEDS ORDERED: SKIN HEALING OINT (AQUAPHOR) 50 GM TUBE TOP PRN (17:17)
[2019-06-25 20:15] LABS: Hematocrit 32.7 VOL% (35.7-47.0); Hemoglobin 10.6 GM/DL (12.0-16.0)
[2019-06-25] MEDS: cefTRIAXone 1,000 MG in SYRINGE 1 EACH IV SCH (20:50)
[2019-06-25] MEDS: GABAPENTIN 300 MG CAPSULE PO SCH (22:20)
[2019-06-26] MEDS: ONDANSETRON 4 MG/2 ML VIAL IV PRN ×2 (00:32→10:39)
[2019-06-26] MEDS: MENTHOL/ZINC OXIDE OINT 71 GM JAR TOP SCH ×4 (00:32→22:05)
[2019-06-26] MEDS: methylPREDNISolone SOD SUC 40 MG/1 ML VIAL IV SCH ×3 (05:40→22:05)
[2019-06-26 06:02] LABS: Basophils % 0.1 % (0.0-0.8); Hematocrit 32.9 VOL% (35.7-47.0); Hemoglobin 10.6 GM/DL (12.0-16.0); Immature Granulocytes % 0.7 %; Immature Granulocytes Absolute 0.05 #; Lymphocytes # 0.2 10*3/uL (1.4-4.0); Lymphocytes % 2.8 % (21.3-54.2); Mean Corpuscular HGB Conc 32.2 GM/DL (32-36); Mean Corpuscular Volume 90.1 FL (87-102); Mean Platelet Volume 11.7 FL (9.6-12.0); Monocytes % 4.7 % (1.7-12.7); Neutrophils % 91.7 % (38.7-73.9); Platelet Count 232 T/CUMM (130-400); Red Blood Count 3.65 MC/CUMM (3.8-5.5); Red Cell Distribution Width 14.6 % (9.3-17.3); White Blood Count 6.8 T/CUMM (4-12)
[2019-06-26] MEDS: LACTATED RINGERS 1,000 ML IV SCH (06:09)
[2019-06-26 06:20] LABS: Calcium 9.4 MG/DL (8.5-10.1); Osmolality,Calculated 291.5 MOS/KG (273-304)
[2019-06-26 06:24] LABS: Lymphocytes 2 % (20-55); Platelet Estimate Normal; Segmented Neutrophils 95 % (50-85); Total Cells Counted 100
[2019-06-26 06:25] LABS: Hypochromasia Slight
[2019-06-26] MEDS: ALBUTEROL/IPRATROPIUM 3 ML NEB RESP TX SCH ×4 (07:12→20:09)
[2019-06-26] MEDS: BUDESONIDE 0.25 MG/2 ML NEB RESP TX SCH ×2 (07:12→20:09)
[2019-06-26] MEDS ORDERED: AZITHROMYCIN INJ 500 MG in SODIUM CHLORIDE 0.9% 250 ML IV ONE (08:07)
[2019-06-26] MEDS: FERROUS SULFATE 325 MG TABLET PO SCH (09:48)
[2019-06-26] MEDS: cloNIDine 0.1 MG TABLET PO SCH ×3 (09:48→22:05)
[2019-06-26] MEDS: SERTRALINE 25 MG TABLET PO SCH (09:48)
[2019-06-26] MEDS: PANTOPRAZOLE 40 MG TABLET PO SCH (09:48)
[2019-06-26] MEDS: CALCIUM (CITRATE) 200 MG TABLET PO SCH ×2 (09:48→22:05)
[2019-06-26] MEDS: DICYCLOMINE 10 MG CAPSULE PO SCH ×2 (09:48→22:05)
[2019-06-26] MEDS: ASPIRIN EC 81 MG TABLET PO SCH (09:48)
[2019-06-26] MEDS: INSULIN REGULAR 100 UNIT/ML SUBCUT SCH ×2 (10:01→19:44)
[2019-06-26] MEDS: POTASSIUM CHLORIDE RIDER 10 MEQ in PREMIX 1 EACH IV SCH ×2 (10:44→11:38)
[2019-06-26] MEDS: FUROSEMIDE 40 MG/4 ML VIAL IV SCH (10:45)
[2019-06-26] MEDS ORDERED: FUROSEMIDE 40 MG TABLET PO SCH (16:00)
[2019-06-26 19:32] LABS: Apearance,Urine CLEAR (Clear); Bilirubin,Urine Negative (Negative); Blood, Urine Negative (Negative); Glucose,Urine (UA) 50 mg/dL (Negative); Hyaline Casts,Urine 16 /LPF (0-3); Ketones,Urine Negative (Negative); Mucus,Urine Occasional /LPF (Occasional); Nitrite,Urine Negative (Negative); Protein,Urine 100 MG/DL; Squamous Epithelial Cell,Urine Occasional /HPF (0-10); Urine Color Yellow (Yellow); Urine Specific Gravity 1.013 (1.001-1.035); Urine Urobilinogen < 2.0 EU/DL (0.2-1.0); WBC,Urine 16 /HPF (0-6)
[2019-06-26] MEDS: GABAPENTIN 300 MG CAPSULE PO SCH (22:05)
[2019-06-26] MEDS: cefTRIAXone 1,000 MG in SYRINGE 1 EACH IV SCH (22:06)
[2019-06-27] MEDS: SODIUM CHLORIDE 0.9% 1,000 ML IV SCH (00:03)
[2019-06-27] MEDS: ALBUTEROL/IPRATROPIUM 3 ML NEB RESP TX SCH ×4 (01:37→19:09)
[2019-06-27 04:04] LABS: Hematocrit 33.6 VOL% (35.7-47.0); Hemoglobin 10.8 GM/DL (12.0-16.0); Immature Granulocytes % 0.4 %; Immature Granulocytes Absolute 0.03 #; Lymphocytes # 0.2 10*3/uL (1.4-4.0); Lymphocytes % 2.9 % (21.3-54.2); Mean Corpuscular HGB Conc 32.1 GM/DL (32-36); Mean Corpuscular Volume 90.6 FL (87-102); Mean Platelet Volume 12.2 FL (9.6-12.0); Neutrophils % 93.7 % (38.7-73.9); Platelet Count 236 T/CUMM (130-400); Red Blood Count 3.71 MC/CUMM (3.8-5.5); Red Cell Distribution Width 14.3 % (9.3-17.3)
[2019-06-27 04:22] LABS: Albumin 3.1 G/DL (3.4-5.0); Bilirubin,Total 0.5 MG/DL (0.2-1.0); Osmolality,Calculated 298.5 MOS/KG (273-304); Total Protein 6.1 G/DL (6.4-8.3)
[2019-06-27] MEDS: methylPREDNISolone SOD SUC 40 MG/1 ML VIAL IV SCH ×3 (04:50→20:28)
[2019-06-27 04:51] LABS: Hypochromasia 1+; Lymphocytes 3 % (20-55); Segmented Neutrophils 94 % (50-85); Total Cells Counted 100
[2019-06-27 04:52] LABS: Microcytosis Slight; Ovalocytes Slight; Platelet Estimate Normal
[2019-06-27] MEDS: BUDESONIDE 0.25 MG/2 ML NEB RESP TX SCH ×2 (07:40→19:09)
[2019-06-27] MEDS: CALCIUM (CITRATE) 200 MG TABLET PO SCH ×2 (09:35→21:00)
[2019-06-27] MEDS: DICYCLOMINE 10 MG CAPSULE PO SCH ×2 (09:36→21:00)
[2019-06-27] MEDS: ASPIRIN EC 81 MG TABLET PO SCH (09:36)
[2019-06-27] MEDS: FERROUS SULFATE 325 MG TABLET PO SCH (09:36)
[2019-06-27] MEDS: FUROSEMIDE 40 MG TABLET PO SCH (09:36)
[2019-06-27] MEDS: AZITHROMYCIN 250 MG TABLET PO SCH (09:36)
[2019-06-27] MEDS: SERTRALINE 25 MG TABLET PO SCH (09:36)
[2019-06-27] MEDS: MENTHOL/ZINC OXIDE OINT 71 GM JAR TOP SCH ×3 (09:36→21:00)
[2019-06-27] MEDS: PANTOPRAZOLE 40 MG TABLET PO SCH (09:36)
[2019-06-27] MEDS: cloNIDine 0.1 MG TABLET PO SCH ×3 (09:39→21:00)
[2019-06-27] MEDS: INSULIN REGULAR 100 UNIT/ML SUBCUT SCH ×2 (10:01→16:32)
[2019-06-27] MEDS: ONDANSETRON 4 MG/2 ML VIAL IV PRN (20:24)
[2019-06-27] MEDS: cefTRIAXone 1,000 MG in SYRINGE 1 EACH IV SCH (20:25)
[2019-06-27] MEDS: GABAPENTIN 300 MG CAPSULE PO SCH (21:00)
[2019-06-28] MEDS: ALBUTEROL/IPRATROPIUM 3 ML NEB RESP TX SCH ×3 (00:18→13:40)
[2019-06-28 04:45] LABS: Basophils % 0.1 % (0.0-0.8); Hemoglobin 10.2 GM/DL (12.0-16.0); Immature Granulocytes % 0.7 %; Immature Granulocytes Absolute 0.06 #; Lymphocytes # 0.2 10*3/uL (1.4-4.0); Lymphocytes % 2.2 % (21.3-54.2); Mean Corpuscular HGB Conc 30.9 GM/DL (32-36); Mean Corpuscular Volume 91.9 FL (87-102); Mean Platelet Volume 11.9 FL (9.6-12.0); Monocytes % 2.7 % (1.7-12.7); Neutrophils % 94.3 % (38.7-73.9); Platelet Count 219 T/CUMM (130-400); Red Blood Count 3.59 MC/CUMM (3.8-5.5); Red Cell Distribution Width 14.1 % (9.3-17.3); White Blood Count 9.2 T/CUMM (4-12)
[2019-06-28 05:02] LABS: Osmolality,Calculated 301.7 MOS/KG (273-304)
[2019-06-28 05:12] LABS: Hypochromasia 1+; Lymphocytes 3 % (20-55); Platelet Estimate Normal; Segmented Neutrophils 95 % (50-85); Total Cells Counted 100
[2019-06-28] MEDS: methylPREDNISolone SOD SUC 40 MG/1 ML VIAL IV SCH ×2 (05:44→14:27)
[2019-06-28] MEDS: BUDESONIDE 0.25 MG/2 ML NEB RESP TX SCH (07:50)
[2019-06-28] MEDS: SERTRALINE 25 MG TABLET PO SCH (10:18)
[2019-06-28] MEDS: DICYCLOMINE 10 MG CAPSULE PO SCH (10:18)
[2019-06-28] MEDS: ASPIRIN EC 81 MG TABLET PO SCH (10:18)
[2019-06-28] MEDS: cloNIDine 0.1 MG TABLET PO SCH ×2 (10:18→14:42)
[2019-06-28] MEDS: PANTOPRAZOLE 40 MG TABLET PO SCH (10:19)
[2019-06-28] MEDS: AZITHROMYCIN 250 MG TABLET PO SCH (10:19)
[2019-06-28] MEDS: MENTHOL/ZINC OXIDE OINT 71 GM JAR TOP SCH ×2 (10:19→14:42)
[2019-06-28] MEDS: INSULIN REGULAR 100 UNIT/ML SUBCUT SCH (10:19)
[2019-06-28] MEDS: FERROUS SULFATE 325 MG TABLET PO SCH (10:19)
[2019-06-28] MEDS: CALCIUM (CITRATE) 200 MG TABLET PO SCH (10:19)
[2019-06-28] MEDS: FUROSEMIDE 40 MG TABLET PO SCH (10:22)
[2019-06-28 11:49] VITALS: BP 149/58
[2019-06-28] MEDS ORDERED: LEVOFLOXACIN 500 MG TABLET PO SCH (13:30)
== END 2019-06-28 16:05 | disposition swing bed (61) | DRG 377 ==
LOC: N.ED 10:28 → N.EDINP 13:42 → N.TELEN 14:05
PROVIDERS: ADMIT Family Medicine; ATTEND Family Medicine

== ENCOUNTER 2019-07-14 08:21 | Inpatient (IN) ==
[2019-07-14 10:10] LABS: Hematocrit 26.3 VOL% (35.7-47.0); Hemoglobin 8.5 GM/DL (12.0-16.0)
[2019-07-14 10:26] LABS: INR 0.9; Partial Thromboplastin Time 23.3 SECS (20.8-36.0)
[2019-07-14 10:29] LABS: Alanine Aminotransferase 11 U/L (13-56); Albumin 2.9 G/DL (3.4-5.0); Alkaline Phosphatase 39 U/L (45-117); Aspartate Amino Transferase 9 U/L (0-37); Bilirubin,Total < 0.39 MG/DL (0.2-1.0); Blood Urea Nitrogen 134 MG/DL (7-18); Calcium 9.6 MG/DL (8.5-10.1); Estimated Glom Filtration Rate 31 ML/MIN; Glucose 199 MG/DL (74-106); Osmolality,Calculated 321.8 MOS/KG (273-304); Total Protein 5.8 G/DL (6.4-8.3)
[2019-07-14] MEDS ORDERED: SODIUM CHLORIDE 0.9% 1,000 ML IV PRN (12:36)
[2019-07-14] MEDS ORDERED: DEXTROSE 10% 25 GM/250 ML BAG IV PRN (12:43)
[2019-07-14] MEDS ORDERED: GLUCAGON 1 MG VIAL IM PRN (13:04)
[2019-07-14] MEDS ORDERED: DEXTROSE 50% 25 GM/50 ML VIAL IV PRN (13:04)
[2019-07-14] MEDS: SODIUM CHLORIDE 0.45% 1,000 ML IV SCH (13:35)
[2019-07-14 14:03] LABS: Hemoglobin 8.4 GM/DL (12.0-16.0)
[2019-07-14] MEDS: ACETAMINOPHEN 325 MG TABLET PO PRN (14:49)
[2019-07-14] MEDS: INSULIN LISPRO 100 UNIT/ML SUBCUT SCH ×2 (16:51→22:35)
[2019-07-14 19:41] LABS: Hematocrit 26.3 VOL% (35.7-47.0); Hemoglobin 8.5 GM/DL (12.0-16.0)
[2019-07-14] MEDS: BUDESONIDE 0.25 MG/2 ML NEB RESP TX SCH (20:43)
[2019-07-14] MEDS: DOCUSATE SODIUM 100 MG CAPSULE PO SCH (22:36)
[2019-07-15 00:45] LABS: Hematocrit 27.3 VOL% (35.7-47.0); Hemoglobin 8.8 GM/DL (12.0-16.0)
[2019-07-15] MEDS: SODIUM CHLORIDE 0.45% 1,000 ML IV SCH ×4 (04:58→21:19)
[2019-07-15 05:55] LABS: Basophils # 0.1 10*3/uL (0.0-0.2); Basophils % 0.5 % (0.0-0.8); Eosinophils # 0.2 10*3/uL (0.0-0.87); Hematocrit 31.1 VOL% (35.7-47.0); Immature Granulocytes % 1.1 %; Immature Granulocytes Absolute 0.12 #; Lymphocytes # 0.7 10*3/uL (1.4-4.0); Lymphocytes % 6.9 % (21.3-54.2); Mean Corpuscular HGB Conc 32.2 GM/DL (32-36); Mean Corpuscular Volume 89.9 FL (87-102); Mean Platelet Volume 11.7 FL (9.6-12.0); Monocytes % 6.6 % (1.7-12.7); Neutrophils % 82.9 % (38.7-73.9); Platelet Count 187 T/CUMM (130-400); Red Blood Count 3.46 MC/CUMM (3.8-5.5); Red Cell Distribution Width 14.5 % (9.3-17.3); White Blood Count 10.8 T/CUMM (4-12)
[2019-07-15] MEDS: ONDANSETRON 4 MG/2 ML VIAL IV PRN (07:51)
[2019-07-15] MEDS: BUDESONIDE 0.25 MG/2 ML NEB RESP TX SCH ×2 (08:11→19:59)
[2019-07-15] MEDS: INSULIN LISPRO 100 UNIT/ML SUBCUT SCH (08:37)
[2019-07-15] MEDS: PANTOPRAZOLE 40 MG TABLET PO SCH (09:40)
[2019-07-15] MEDS: DOCUSATE SODIUM 100 MG CAPSULE PO SCH ×2 (09:40→21:03)
[2019-07-15] MEDS: LACTOBACILLUS ACIDOPHILUS/BULGARICUS CAPLET PO SCH (09:40)
[2019-07-15] MEDS: ASCORBIC ACID 500 MG TABLET PO SCH (09:40)
[2019-07-15] MEDS: ACETAMINOPHEN 325 MG TABLET PO PRN ×2 (09:47→15:55)
[2019-07-16] MEDS: PROMETHAZINE 25 MG TABLET PO PRN (01:48)
[2019-07-16] MEDS: SODIUM CHLORIDE 0.45% 1,000 ML IV SCH ×2 (06:03→14:53)
[2019-07-16 07:27] LABS: Basophils % 0.3 % (0.0-0.8); Eosinophils # 0.2 10*3/uL (0.0-0.87); Eosinophils % 2.2 % (0.00-10.9); Hematocrit 33.2 VOL% (35.7-47.0); Hemoglobin 10.6 GM/DL (12.0-16.0); Immature Granulocytes % 1.2 %; Immature Granulocytes Absolute 0.12 #; Lymphocytes # 0.8 10*3/uL (1.4-4.0); Lymphocytes % 7.8 % (21.3-54.2); Mean Corpuscular HGB Conc 31.9 GM/DL (32-36); Mean Corpuscular Volume 91.2 FL (87-102); Mean Platelet Volume 10.7 FL (9.6-12.0); Monocytes % 7.4 % (1.7-12.7); Neutrophils % 81.1 % (38.7-73.9); Platelet Count 195 T/CUMM (130-400); Red Blood Count 3.64 MC/CUMM (3.8-5.5); Red Cell Distribution Width 14.3 % (9.3-17.3); White Blood Count 10.2 T/CUMM (4-12)
[2019-07-16 07:54] LABS: Calcium 8.3 MG/DL (8.5-10.1); Osmolality,Calculated 302.1 MOS/KG (273-304)
[2019-07-16] MEDS ORDERED: MENTHOL/ZINC OXIDE OINT 71 GM JAR TOP PRN (07:59)
[2019-07-16] MEDS: BUDESONIDE 0.25 MG/2 ML NEB RESP TX SCH ×2 (08:00→19:44)
[2019-07-16] MEDS ORDERED: LIDOCAINE 2% 5 ML VIAL ONE (09:00)
[2019-07-16] MEDS ORDERED: ETOMIDATE 20 MG/10 ML VIAL IV ONE (09:00)
[2019-07-16] MEDS ORDERED: PROPOFOL 200 MG/20 ML VIAL IV ONE (09:00)
[2019-07-16] MEDS: DOCUSATE SODIUM 100 MG CAPSULE PO SCH ×2 (11:45→21:28)
[2019-07-16] MEDS: predniSONE 20 MG TABLET PO SCH (11:45)
[2019-07-16] MEDS: LACTOBACILLUS ACIDOPHILUS/BULGARICUS CAPLET PO SCH (11:45)
[2019-07-16] MEDS: GEMFIBROZIL 600 MG TABLET PO SCH ×2 (11:45→21:27)
[2019-07-16] MEDS: POTASSIUM CHLORIDE 20 MEQ TABLET PO SCH ×2 (11:45→21:27)
[2019-07-16] MEDS: MULTIVITAMIN (CENTRUM) TABLET PO SCH (11:45)
[2019-07-16] MEDS: ASCORBIC ACID 500 MG TABLET PO SCH (11:46)
[2019-07-16] MEDS: PANTOPRAZOLE 40 MG TABLET PO SCH (11:46)
[2019-07-16] MEDS: LACTATED RINGERS 1,000 ML IV SCH (12:35)
[2019-07-16] MEDS: POTASSIUM CHLORIDE RIDER 10 MEQ in PREMIX 1 EACH IV SCH ×2 (17:47→18:52)
[2019-07-16] MEDS: ACETAMINOPHEN 325 MG TABLET PO PRN (17:54)
[2019-07-16] MEDS: ONDANSETRON 4 MG/2 ML VIAL IV PRN (23:35)
[2019-07-17 05:18] LABS: Basophils % 0.3 % (0.0-0.8); Eosinophils # 0.2 10*3/uL (0.0-0.87); Eosinophils % 2.6 % (0.00-10.9); Hematocrit 32.3 VOL% (35.7-47.0); Hemoglobin 10.4 GM/DL (12.0-16.0); Immature Granulocytes % 0.8 %; Immature Granulocytes Absolute 0.07 #; Lymphocytes # 0.8 10*3/uL (1.4-4.0); Lymphocytes % 8.7 % (21.3-54.2); Mean Corpuscular HGB Conc 32.2 GM/DL (32-36); Mean Corpuscular Volume 90.2 FL (87-102); Mean Platelet Volume 11.2 FL (9.6-12.0); Monocytes % 8.3 % (1.7-12.7); Neutrophils % 79.3 % (38.7-73.9); Platelet Count 220 T/CUMM (130-400); Red Blood Count 3.58 MC/CUMM (3.8-5.5); Red Cell Distribution Width 14.3 % (9.3-17.3); White Blood Count 9.2 T/CUMM (4-12)
[2019-07-17] MEDS: SODIUM CHLORIDE 0.45% 1,000 ML IV SCH ×2 (05:20→18:32)
[2019-07-17 05:37] LABS: Albumin 2.4 G/DL (3.4-5.0); Bilirubin,Total 0.4 MG/DL (0.2-1.0); Calcium 7.6 MG/DL (8.5-10.1); Osmolality,Calculated 301.6 MOS/KG (273-304)
[2019-07-17] MEDS: BUDESONIDE 0.25 MG/2 ML NEB RESP TX SCH ×2 (07:53→19:36)
[2019-07-17] MEDS: MULTIVITAMIN (CENTRUM) TABLET PO SCH (09:22)
[2019-07-17] MEDS: predniSONE 20 MG TABLET PO SCH (09:22)
[2019-07-17] MEDS: LACTOBACILLUS ACIDOPHILUS/BULGARICUS CAPLET PO SCH (09:22)
[2019-07-17] MEDS: GEMFIBROZIL 600 MG TABLET PO SCH ×2 (09:22→21:37)
[2019-07-17] MEDS: PANTOPRAZOLE 40 MG TABLET PO SCH (09:23)
[2019-07-17] MEDS: DOCUSATE SODIUM 100 MG CAPSULE PO SCH ×2 (09:24→21:37)
[2019-07-17] MEDS: ASCORBIC ACID 500 MG TABLET PO SCH (09:24)
[2019-07-17] MEDS: POTASSIUM CHLORIDE 20 MEQ TABLET PO SCH ×2 (09:30→21:37)
[2019-07-17] MEDS: LACTATED RINGERS 1,000 ML IV SCH (14:29)
[2019-07-17] MEDS: ONDANSETRON 4 MG/2 ML VIAL IV PRN (19:16)
[2019-07-18] MEDS: ONDANSETRON 4 MG/2 ML VIAL IV PRN ×3 (00:10→19:58)
[2019-07-18] MEDS: PROMETHAZINE 25 MG TABLET PO PRN ×3 (04:42→16:58)
[2019-07-18 05:27] LABS: Hematocrit 33.2 VOL% (35.7-47.0); Hemoglobin 10.5 GM/DL (12.0-16.0); Red Blood Count 3.61 MC/CUMM (3.8-5.5); White Blood Count 9.3 T/CUMM (4-12)
[2019-07-18 05:28] LABS: Basophils % 0.2 % (0.0-0.8); Eosinophils # 0.2 10*3/uL (0.0-0.87); Eosinophils % 2.1 % (0.00-10.9); Immature Granulocytes % 0.5 %; Immature Granulocytes Absolute 0.05 #; Lymphocytes % 10.7 % (21.3-54.2); Mean Corpuscular HGB Conc 31.6 GM/DL (32-36); Mean Platelet Volume 11.2 FL (9.6-12.0); Monocytes % 8.5 % (1.7-12.7); Platelet Count 253 T/CUMM (130-400); Red Cell Distribution Width 14.6 % (9.3-17.3)
[2019-07-18 06:01] LABS: Calcium 7.4 MG/DL (8.5-10.1)
[2019-07-18] MEDS: BUDESONIDE 0.25 MG/2 ML NEB RESP TX SCH ×2 (07:47→19:50)
[2019-07-18] MEDS: ASCORBIC ACID 500 MG TABLET PO SCH (08:59)
[2019-07-18] MEDS: predniSONE 20 MG TABLET PO SCH (08:59)
[2019-07-18] MEDS: LACTOBACILLUS ACIDOPHILUS/BULGARICUS CAPLET PO SCH (08:59)
[2019-07-18] MEDS: DOCUSATE SODIUM 100 MG CAPSULE PO SCH ×2 (08:59→22:34)
[2019-07-18] MEDS: POTASSIUM CHLORIDE 20 MEQ TABLET PO SCH ×2 (08:59→22:34)
[2019-07-18] MEDS: GEMFIBROZIL 600 MG TABLET PO SCH ×2 (09:00→22:35)
[2019-07-18] MEDS: LACTATED RINGERS 1,000 ML IV SCH (09:00)
[2019-07-18] MEDS: MULTIVITAMIN (CENTRUM) TABLET PO SCH (09:00)
[2019-07-18] MEDS: SODIUM CHLORIDE 0.45% 1,000 ML IV SCH ×2 (09:01→17:01)
[2019-07-18] MEDS: PANTOPRAZOLE 40 MG TABLET PO SCH (09:35)
[2019-07-18] MEDS: PROMETHAZINE 25 MG/1 ML VIAL IM PRN (13:49)
[2019-07-18] MEDS: ALBUTEROL/IPRATROPIUM 3 ML NEB RESP TX PRN (19:50)
[2019-07-19] MEDS: PROMETHAZINE 25 MG TABLET PO PRN ×2 (00:31→21:43)
[2019-07-19 06:37] LABS: Basophils % 0.3 % (0.0-0.8); Eosinophils # 0.2 10*3/uL (0.0-0.87); Eosinophils % 1.8 % (0.00-10.9); Hematocrit 31.7 VOL% (35.7-47.0); Immature Granulocytes % 0.5 %; Immature Granulocytes Absolute 0.04 #; Lymphocytes # 0.9 10*3/uL (1.4-4.0); Lymphocytes % 9.7 % (21.3-54.2); Mean Corpuscular HGB Conc 31.5 GM/DL (32-36); Mean Corpuscular Volume 91.1 FL (87-102); Monocytes % 8.5 % (1.7-12.7); Neutrophils % 79.2 % (38.7-73.9); Platelet Count 243 T/CUMM (130-400); Red Blood Count 3.48 MC/CUMM (3.8-5.5); Red Cell Distribution Width 14.9 % (9.3-17.3); White Blood Count 8.7 T/CUMM (4-12)
[2019-07-19] MEDS: ONDANSETRON 4 MG/2 ML VIAL IV PRN (06:41)
[2019-07-19] MEDS: SODIUM CHLORIDE 0.45% 1,000 ML IV SCH ×2 (06:42→09:38)
[2019-07-19 07:08] LABS: Calcium 7.5 MG/DL (8.5-10.1); Osmolality,Calculated 291.8 MOS/KG (273-304)
[2019-07-19] MEDS: BUDESONIDE 0.25 MG/2 ML NEB RESP TX SCH ×2 (07:20→20:20)
[2019-07-19] MEDS: ALBUTEROL/IPRATROPIUM 3 ML NEB RESP TX PRN (07:20)
[2019-07-19] MEDS: PROMETHAZINE 25 MG/1 ML VIAL IM PRN ×3 (07:25→17:12)
[2019-07-19] MEDS: LACTATED RINGERS 1,000 ML IV SCH (09:38)
[2019-07-19] MEDS: LACTOBACILLUS ACIDOPHILUS/BULGARICUS CAPLET PO SCH (12:50)
[2019-07-19] MEDS: MULTIVITAMIN (CENTRUM) TABLET PO SCH (12:50)
[2019-07-19] MEDS: POTASSIUM CHLORIDE 20 MEQ TABLET PO SCH ×2 (12:53→21:43)
[2019-07-19] MEDS: GEMFIBROZIL 600 MG TABLET PO SCH ×2 (12:53→21:43)
[2019-07-19] MEDS: ASCORBIC ACID 500 MG TABLET PO SCH (12:54)
[2019-07-19] MEDS: PANTOPRAZOLE 40 MG TABLET PO SCH (13:00)
[2019-07-19] MEDS: DOCUSATE SODIUM 100 MG CAPSULE PO SCH ×2 (13:00→21:43)
[2019-07-19] MEDS: predniSONE 5 MG TABLET PO SCH (13:03)
[2019-07-19] MEDS: LEVOFLOXACIN INJ 500 MG in PREMIX 1 EACH IV SCH (17:06)
[2019-07-19] MEDS: metroNIDAZOLE INJ 500 MG in PREMIX 1 EACH IV SCH (18:06)
[2019-07-19] MEDS: ACETAMINOPHEN 325 MG TABLET PO PRN (21:43)
[2019-07-20] MEDS: metroNIDAZOLE INJ 500 MG in PREMIX 1 EACH IV SCH ×3 (00:12→16:52)
[2019-07-20] MEDS: ALBUTEROL/IPRATROPIUM 3 ML NEB RESP TX PRN ×3 (02:28→20:09)
[2019-07-20] MEDS: SODIUM CHLORIDE 0.45% 1,000 ML IV SCH ×2 (02:51→18:15)
[2019-07-20 05:30] LABS: Basophils % 0.5 % (0.0-0.8); Eosinophils # 0.2 10*3/uL (0.0-0.87); Eosinophils % 2.3 % (0.00-10.9); Hematocrit 30.9 VOL% (35.7-47.0); Hemoglobin 9.9 GM/DL (12.0-16.0); Immature Granulocytes % 0.4 %; Immature Granulocytes Absolute 0.03 #; Lymphocytes # 0.8 10*3/uL (1.4-4.0); Lymphocytes % 10.6 % (21.3-54.2); Mean Corpuscular Volume 91.2 FL (87-102); Mean Platelet Volume 11.1 FL (9.6-12.0); Monocytes % 9.6 % (1.7-12.7); Neutrophils % 76.6 % (38.7-73.9); Platelet Count 228 T/CUMM (130-400); Red Blood Count 3.39 MC/CUMM (3.8-5.5); Red Cell Distribution Width 14.9 % (9.3-17.3); White Blood Count 7.9 T/CUMM (4-12)
[2019-07-20 06:00] LABS: Albumin 2.7 G/DL (3.4-5.0); Bilirubin,Total 0.5 MG/DL (0.2-1.0); Calcium 7.4 MG/DL (8.5-10.1); Osmolality,Calculated 292.7 MOS/KG (273-304); Total Protein 5.4 G/DL (6.4-8.3)
[2019-07-20] MEDS: BUDESONIDE 0.25 MG/2 ML NEB RESP TX SCH ×2 (07:25→20:09)
[2019-07-20] MEDS: PROMETHAZINE 25 MG/1 ML VIAL IM PRN ×3 (08:02→20:46)
[2019-07-20] MEDS: POTASSIUM CHLORIDE 20 MEQ TABLET PO SCH ×2 (11:18→20:46)
[2019-07-20] MEDS: DOCUSATE SODIUM 100 MG CAPSULE PO SCH ×2 (11:18→20:46)
[2019-07-20] MEDS: MULTIVITAMIN (CENTRUM) TABLET PO SCH (11:18)
[2019-07-20] MEDS: PANTOPRAZOLE 40 MG TABLET PO SCH (11:19)
[2019-07-20] MEDS: predniSONE 5 MG TABLET PO SCH (11:19)
[2019-07-20] MEDS: ASCORBIC ACID 500 MG TABLET PO SCH (11:19)
[2019-07-20] MEDS: LACTOBACILLUS ACIDOPHILUS/BULGARICUS CAPLET PO SCH (11:19)
[2019-07-20] MEDS: GEMFIBROZIL 600 MG TABLET PO SCH ×2 (11:19→20:46)
[2019-07-20] MEDS: PROMETHAZINE 25 MG TABLET PO PRN (12:37)
[2019-07-20] MEDS: LEVOFLOXACIN INJ 500 MG in PREMIX 1 EACH IV SCH (15:17)
[2019-07-20] MEDS: ALBUTEROL 2.5 MG/3 ML NEB RESP TX PRN (20:09)
[2019-07-20] MEDS ORDERED: MORPHINE 4 MG/1 ML VIAL IV PRN (22:45)
[2019-07-21] MEDS: metroNIDAZOLE INJ 500 MG in PREMIX 1 EACH IV SCH ×3 (00:17→16:37)
[2019-07-21] MEDS: PROMETHAZINE 25 MG/1 ML VIAL IM PRN (02:19)
[2019-07-21] MEDS: SODIUM CHLORIDE 0.45% 1,000 ML IV SCH ×2 (02:19→21:11)
[2019-07-21] MEDS: ALBUTEROL 2.5 MG/3 ML NEB RESP TX PRN (05:33)
[2019-07-21] MEDS: BUDESONIDE 0.25 MG/2 ML NEB RESP TX SCH ×2 (05:33→20:17)
[2019-07-21] MEDS: ALBUTEROL/IPRATROPIUM 3 ML NEB RESP TX PRN (05:33)
[2019-07-21 06:41] LABS: Albumin 2.7 G/DL (3.4-5.0); Bilirubin,Total 1.2 MG/DL (0.2-1.0); Calcium 7.6 MG/DL (8.5-10.1); Osmolality,Calculated 287.8 MOS/KG (273-304); Total Protein 5.2 G/DL (6.4-8.3)
[2019-07-21 07:06] LABS: Basophils % 0.3 % (0.0-0.8); Eosinophils # 0.2 10*3/uL (0.0-0.87); Eosinophils % 2.1 % (0.00-10.9); Hematocrit 31.7 VOL% (35.7-47.0); Hemoglobin 9.8 GM/DL (12.0-16.0); Immature Granulocytes % 0.6 %; Immature Granulocytes Absolute 0.04 #; Lymphocytes # 0.7 10*3/uL (1.4-4.0); Mean Corpuscular HGB Conc 30.9 GM/DL (32-36); Mean Platelet Volume 11.5 FL (9.6-12.0); Monocytes % 10.3 % (1.7-12.7); Neutrophils % 76.7 % (38.7-73.9); Platelet Count 231 T/CUMM (130-400); Red Blood Count 3.41 MC/CUMM (3.8-5.5); Red Cell Distribution Width 14.8 % (9.3-17.3); White Blood Count 7.1 T/CUMM (4-12)
[2019-07-21] MEDS: PROMETHAZINE 25 MG TABLET PO PRN ×2 (11:36→23:17)
[2019-07-21] MEDS: DOCUSATE SODIUM 100 MG CAPSULE PO SCH ×2 (14:18→21:14)
[2019-07-21] MEDS: POTASSIUM CHLORIDE 20 MEQ TABLET PO SCH ×2 (14:18→21:13)
[2019-07-21] MEDS: MULTIVITAMIN (CENTRUM) TABLET PO SCH (14:18)
[2019-07-21] MEDS: LACTOBACILLUS ACIDOPHILUS/BULGARICUS CAPLET PO SCH (14:18)
[2019-07-21] MEDS: PANTOPRAZOLE 40 MG TABLET PO SCH (14:19)
[2019-07-21] MEDS: predniSONE 5 MG TABLET PO SCH (14:19)
[2019-07-21] MEDS: GEMFIBROZIL 600 MG TABLET PO SCH ×2 (14:19→21:13)
[2019-07-21] MEDS: ASCORBIC ACID 500 MG TABLET PO SCH (14:20)
[2019-07-21] MEDS: LEVOFLOXACIN INJ 500 MG in PREMIX 1 EACH IV SCH (15:07)
[2019-07-21] MEDS: ACETAMINOPHEN 325 MG TABLET PO PRN (21:13)
[2019-07-22] MEDS: metroNIDAZOLE INJ 500 MG in PREMIX 1 EACH IV SCH ×4 (00:15→23:52)
[2019-07-22 05:10] LABS: Basophils % 0.3 % (0.0-0.8); Eosinophils # 0.2 10*3/uL (0.0-0.87); Eosinophils % 2.8 % (0.00-10.9); Hematocrit 30.1 VOL% (35.7-47.0); Hemoglobin 9.7 GM/DL (12.0-16.0); Immature Granulocytes % 0.4 %; Immature Granulocytes Absolute 0.03 #; Lymphocytes # 0.7 10*3/uL (1.4-4.0); Lymphocytes % 9.3 % (21.3-54.2); Mean Corpuscular HGB Conc 32.2 GM/DL (32-36); Mean Corpuscular Volume 90.1 FL (87-102); Mean Platelet Volume 11.1 FL (9.6-12.0); Monocytes % 10.3 % (1.7-12.7); Neutrophils % 76.9 % (38.7-73.9); Platelet Count 221 T/CUMM (130-400); Red Blood Count 3.34 MC/CUMM (3.8-5.5); Red Cell Distribution Width 14.5 % (9.3-17.3); White Blood Count 7.1 T/CUMM (4-12)
[2019-07-22] MEDS: BUDESONIDE 0.25 MG/2 ML NEB RESP TX SCH ×2 (05:16→19:45)
[2019-07-22 05:39] LABS: Albumin 2.5 G/DL (3.4-5.0); Bilirubin,Total 0.7 MG/DL (0.2-1.0); Calcium 7.8 MG/DL (8.5-10.1)
[2019-07-22] MEDS: DOCUSATE SODIUM 100 MG CAPSULE PO SCH ×2 (10:58→21:44)
[2019-07-22] MEDS: POTASSIUM CHLORIDE 20 MEQ TABLET PO SCH ×2 (10:58→21:44)
[2019-07-22] MEDS: LACTOBACILLUS ACIDOPHILUS/BULGARICUS CAPLET PO SCH (10:58)
[2019-07-22] MEDS: ASCORBIC ACID 500 MG TABLET PO SCH (10:58)
[2019-07-22] MEDS: MULTIVITAMIN (CENTRUM) TABLET PO SCH (10:58)
[2019-07-22] MEDS: predniSONE 5 MG TABLET PO SCH (10:58)
[2019-07-22] MEDS: ACETAMINOPHEN 325 MG TABLET PO PRN (10:58)
[2019-07-22] MEDS: GEMFIBROZIL 600 MG TABLET PO SCH ×2 (10:59→21:44)
[2019-07-22] MEDS: PANTOPRAZOLE 40 MG TABLET PO SCH (10:59)
[2019-07-22] MEDS: ONDANSETRON 4 MG/2 ML VIAL IV PRN ×2 (11:06→19:45)
[2019-07-22] MEDS: LEVOFLOXACIN INJ 500 MG in PREMIX 1 EACH IV SCH (14:17)
[2019-07-22] MEDS: SODIUM CHLORIDE 0.45% 1,000 ML IV SCH (14:17)
[2019-07-22] MEDS: PROMETHAZINE 25 MG TABLET PO PRN ×2 (15:22→23:48)
[2019-07-22] MEDS: MORPHINE 4 MG/1 ML VIAL IV PRN ×2 (19:45→23:48)
[2019-07-23] MEDS: PROMETHAZINE 25 MG/1 ML VIAL IM PRN ×2 (00:02→23:52)
[2019-07-23] MEDS: BUDESONIDE 0.25 MG/2 ML NEB RESP TX SCH ×2 (07:55→19:56)
[2019-07-23] MEDS: SODIUM CHLORIDE 0.45% 1,000 ML IV SCH ×2 (09:14)
[2019-07-23] MEDS ORDERED: LIDOCAINE 1%/EPI INJ 20 ML VIAL ONE (10:14)
[2019-07-23] MEDS ORDERED: BUPIVACAINE MPF 0.25% 30 ML VIAL ONE (10:14)
[2019-07-23] MEDS ORDERED: TISSUE ADHESIVE 1 EACH APPLICATOR TOP ONE (10:14)
[2019-07-23] MEDS: metroNIDAZOLE INJ 500 MG in PREMIX 1 EACH IV SCH ×2 (11:05→17:54)
[2019-07-23] MEDS: DOCUSATE SODIUM 100 MG CAPSULE PO SCH ×2 (11:07→21:40)
[2019-07-23] MEDS: LACTOBACILLUS ACIDOPHILUS/BULGARICUS CAPLET PO SCH (11:07)
[2019-07-23] MEDS: MULTIVITAMIN (CENTRUM) TABLET PO SCH (11:07)
[2019-07-23] MEDS: GEMFIBROZIL 600 MG TABLET PO SCH ×2 (11:08→21:40)
[2019-07-23] MEDS: POTASSIUM CHLORIDE 20 MEQ TABLET PO SCH ×2 (11:08→21:40)
[2019-07-23] MEDS: predniSONE 5 MG TABLET PO SCH (11:09)
[2019-07-23] MEDS: PANTOPRAZOLE 40 MG TABLET PO SCH (11:11)
[2019-07-23] MEDS: ASCORBIC ACID 500 MG TABLET PO SCH (11:11)
[2019-07-23] MEDS ORDERED: ONDANSETRON 4 MG/2 ML VIAL ONE (11:54)
[2019-07-23] MEDS ORDERED: ONDANSETRON 4 MG/2 ML VIAL IV PRN (11:56)
[2019-07-23] MEDS ORDERED: LIDOCAINE 2% 5 ML VIAL ONE (11:58)
[2019-07-23] MEDS ORDERED: PROPOFOL 200 MG/20 ML VIAL IV ONE (11:58)
[2019-07-23] MEDS ORDERED: SEVOFLURANE 1 UNIT/15 MINUTE INH ONE (11:58)
[2019-07-23] MEDS ORDERED: methylPREDNISolone SOD SUC 125 MG/2 ML VIAL ONE (11:59)
[2019-07-23] MEDS ORDERED: ePHEDrine 50 MG/ML AMP ONE (11:59)
[2019-07-23] MEDS ORDERED: ACETAMINOPHEN 1,000 MG/100 ML VIAL IV ONE (11:59)
[2019-07-23] MEDS ORDERED: fentaNYL 100 MCG/2 ML VIAL ONE (11:59)
[2019-07-23] MEDS ORDERED: ROCURONIUM 100 MG/10 ML VIAL IV ONE (11:59)
[2019-07-23] MEDS ORDERED: PHENYLEPHRINE 1 MG/10 ML SYRINGE IV ONE (11:59)
[2019-07-23] MEDS: LEVOFLOXACIN INJ 500 MG in PREMIX 1 EACH IV SCH (14:46)
[2019-07-23] MEDS: ONDANSETRON 4 MG/2 ML VIAL IV PRN (21:55)
[2019-07-24] MEDS: metroNIDAZOLE INJ 500 MG in PREMIX 1 EACH IV SCH ×3 (00:13→16:18)
[2019-07-24] MEDS: ONDANSETRON 4 MG/2 ML VIAL IV PRN (03:46)
[2019-07-24] MEDS: SODIUM CHLORIDE 0.45% 1,000 ML IV SCH ×2 (05:22→19:32)
[2019-07-24 06:21] LABS: Basophils % 0.2 % (0.0-0.8); Eosinophils # 0.1 10*3/uL (0.0-0.87); Eosinophils % 0.9 % (0.00-10.9); Immature Granulocytes % 0.5 %; Immature Granulocytes Absolute 0.04 #; Lymphocytes # 0.9 10*3/uL (1.4-4.0); Lymphocytes % 11.1 % (21.3-54.2); Mean Corpuscular Volume 93.2 FL (87-102); Mean Platelet Volume 11.2 FL (9.6-12.0); Monocytes % 10.3 % (1.7-12.7); Platelet Count 234 T/CUMM (130-400); Red Blood Count 3.11 MC/CUMM (3.8-5.5); Red Cell Distribution Width 14.3 % (9.3-17.3); White Blood Count 8.5 T/CUMM (4-12)
[2019-07-24 06:44] LABS: Albumin 2.5 G/DL (3.4-5.0); Bilirubin,Total 0.5 MG/DL (0.2-1.0); Calcium 7.7 MG/DL (8.5-10.1); Osmolality,Calculated 282.3 MOS/KG (273-304); Total Protein 4.9 G/DL (6.4-8.3)
[2019-07-24] MEDS: BUDESONIDE 0.25 MG/2 ML NEB RESP TX SCH ×2 (07:45→18:45)
[2019-07-24] MEDS: DOCUSATE SODIUM 100 MG CAPSULE PO SCH ×2 (08:58→21:24)
[2019-07-24] MEDS: ASCORBIC ACID 500 MG TABLET PO SCH (08:58)
[2019-07-24] MEDS: LACTOBACILLUS ACIDOPHILUS/BULGARICUS CAPLET PO SCH (08:58)
[2019-07-24] MEDS: predniSONE 5 MG TABLET PO SCH (08:58)
[2019-07-24] MEDS: POTASSIUM CHLORIDE 20 MEQ TABLET PO SCH ×2 (08:58→21:24)
[2019-07-24] MEDS: MULTIVITAMIN (CENTRUM) TABLET PO SCH (08:58)
[2019-07-24] MEDS: GEMFIBROZIL 600 MG TABLET PO SCH ×2 (08:59→21:24)
[2019-07-24] MEDS: PANTOPRAZOLE 40 MG TABLET PO SCH (08:59)
[2019-07-24] MEDS: MORPHINE 4 MG/1 ML VIAL IV PRN ×2 (11:16→19:27)
[2019-07-24] MEDS: LEVOFLOXACIN INJ 500 MG in PREMIX 1 EACH IV SCH (16:18)
[2019-07-25] MEDS: metroNIDAZOLE INJ 500 MG in PREMIX 1 EACH IV SCH ×4 (00:44→23:51)
[2019-07-25] MEDS: MORPHINE 4 MG/1 ML VIAL IV PRN ×2 (01:47→22:36)
[2019-07-25 06:19] LABS: Basophils % 0.4 % (0.0-0.8); Eosinophils # 0.1 10*3/uL (0.0-0.87); Eosinophils % 1.6 % (0.00-10.9); Hematocrit 29.8 VOL% (35.7-47.0); Hemoglobin 9.2 GM/DL (12.0-16.0); Immature Granulocytes % 0.3 %; Immature Granulocytes Absolute 0.02 #; Lymphocytes # 0.8 10*3/uL (1.4-4.0); Lymphocytes % 11.1 % (21.3-54.2); Mean Corpuscular HGB Conc 30.9 GM/DL (32-36); Mean Corpuscular Volume 92.8 FL (87-102); Mean Platelet Volume 11.6 FL (9.6-12.0); Monocytes % 9.8 % (1.7-12.7); Neutrophils % 76.8 % (38.7-73.9); Platelet Count 239 T/CUMM (130-400); Red Blood Count 3.21 MC/CUMM (3.8-5.5); Red Cell Distribution Width 14.6 % (9.3-17.3); White Blood Count 6.9 T/CUMM (4-12)
[2019-07-25 06:44] LABS: Calcium 8.3 MG/DL (8.5-10.1); Osmolality,Calculated 277.7 MOS/KG (273-304)
[2019-07-25] MEDS: BUDESONIDE 0.25 MG/2 ML NEB RESP TX SCH ×2 (07:39→19:36)
[2019-07-25] MEDS: SODIUM CHLORIDE 0.45% 1,000 ML IV SCH ×2 (08:17→21:48)
[2019-07-25] MEDS: GEMFIBROZIL 600 MG TABLET PO SCH ×2 (09:21→21:39)
[2019-07-25] MEDS: DOCUSATE SODIUM 100 MG CAPSULE PO SCH ×2 (09:21→21:39)
[2019-07-25] MEDS: MULTIVITAMIN (CENTRUM) TABLET PO SCH (09:21)
[2019-07-25] MEDS: LACTOBACILLUS ACIDOPHILUS/BULGARICUS CAPLET PO SCH (09:21)
[2019-07-25] MEDS: PANTOPRAZOLE 40 MG TABLET PO SCH (09:21)
[2019-07-25] MEDS: predniSONE 5 MG TABLET PO SCH (09:21)
[2019-07-25] MEDS: POTASSIUM CHLORIDE 20 MEQ TABLET PO SCH ×2 (09:21→21:39)
[2019-07-25] MEDS: ASCORBIC ACID 500 MG TABLET PO SCH (09:21)
[2019-07-25] MEDS: LEVOFLOXACIN INJ 500 MG in PREMIX 1 EACH IV SCH (14:07)
[2019-07-25] MEDS ORDERED: FUROSEMIDE 40 MG/4 ML VIAL IV ONE (15:40)
[2019-07-25] MEDS: SERTRALINE 25 MG TABLET PO SCH (18:19)
[2019-07-26] MEDS: MORPHINE 4 MG/1 ML VIAL IV PRN ×2 (04:44→23:05)
[2019-07-26 05:48] LABS: Calcium 8.5 MG/DL (8.5-10.1); Osmolality,Calculated 277.7 MOS/KG (273-304)
[2019-07-26] MEDS: BUDESONIDE 0.25 MG/2 ML NEB RESP TX SCH ×2 (07:05→19:09)
[2019-07-26] MEDS: DOCUSATE SODIUM 100 MG CAPSULE PO SCH ×2 (09:50→21:08)
[2019-07-26] MEDS: PANTOPRAZOLE 40 MG TABLET PO SCH (09:50)
[2019-07-26] MEDS: ASCORBIC ACID 500 MG TABLET PO SCH (09:50)
[2019-07-26] MEDS: MULTIVITAMIN (CENTRUM) TABLET PO SCH (09:50)
[2019-07-26] MEDS: LACTOBACILLUS ACIDOPHILUS/BULGARICUS CAPLET PO SCH (09:50)
[2019-07-26] MEDS: POTASSIUM CHLORIDE 20 MEQ TABLET PO SCH ×2 (09:50→21:08)
[2019-07-26] MEDS: SERTRALINE 25 MG TABLET PO SCH (09:50)
[2019-07-26] MEDS: predniSONE 5 MG TABLET PO SCH (09:50)
[2019-07-26] MEDS: GEMFIBROZIL 600 MG TABLET PO SCH ×2 (09:50→21:08)
[2019-07-26] MEDS: metroNIDAZOLE INJ 500 MG in PREMIX 1 EACH IV SCH ×3 (09:51→23:08)
[2019-07-26] MEDS: SODIUM CHLORIDE 0.45% 1,000 ML IV SCH (11:25)
[2019-07-26] MEDS: ONDANSETRON 4 MG/2 ML VIAL IV PRN (13:58)
[2019-07-26] MEDS: PROMETHAZINE 25 MG TABLET PO PRN ×2 (14:29→22:08)
[2019-07-26] MEDS: LEVOFLOXACIN INJ 500 MG in PREMIX 1 EACH IV SCH (16:37)
[2019-07-26] MEDS ORDERED: SERTRALINE 25 MG TABLET PO SCH (18:30)
[2019-07-26] MEDS: ACETAMINOPHEN 325 MG TABLET PO PRN (21:21)
[2019-07-27] MEDS: SODIUM CHLORIDE 0.45% 1,000 ML IV SCH ×2 (02:08→14:48)
[2019-07-27] MEDS ORDERED: VANCOMYCIN INJ 1,000 MG in SODIUM CHLORIDE 0.9% 250 ML IV SCH (07:30)
[2019-07-27] MEDS: BUDESONIDE 0.25 MG/2 ML NEB RESP TX SCH ×2 (07:53→19:49)
[2019-07-27] MEDS: LEVOFLOXACIN INJ 500 MG in PREMIX 1 EACH IV SCH (08:14)
[2019-07-27] MEDS ORDERED: TEMAZEPAM 7.5 MG CAPSULE PO PRN (08:38)
[2019-07-27] MEDS: POLYETHYLENE GLYCOL POWDER 17 GM PACK PO SCH (09:40)
[2019-07-27] MEDS: VANCOMYCIN INJ 1,250 MG in SODIUM CHLORIDE 0.9% 250 ML IV SCH ×2 (09:40→20:27)
[2019-07-27] MEDS: DOCUSATE SODIUM 100 MG CAPSULE PO SCH ×2 (09:41→20:27)
[2019-07-27] MEDS: PANTOPRAZOLE 40 MG TABLET PO SCH (09:41)
[2019-07-27] MEDS: MULTIVITAMIN (CENTRUM) TABLET PO SCH (09:42)
[2019-07-27] MEDS: predniSONE 5 MG TABLET PO SCH (09:42)
[2019-07-27] MEDS: GEMFIBROZIL 600 MG TABLET PO SCH ×2 (09:42→20:27)
[2019-07-27] MEDS: ASCORBIC ACID 500 MG TABLET PO SCH (09:42)
[2019-07-27] MEDS: LACTOBACILLUS ACIDOPHILUS/BULGARICUS CAPLET PO SCH (09:42)
[2019-07-27] MEDS: SERTRALINE 25 MG TABLET PO SCH (09:42)
[2019-07-27] MEDS: POTASSIUM CHLORIDE 20 MEQ TABLET PO SCH ×2 (09:42→20:27)
[2019-07-27] MEDS: MORPHINE 4 MG/1 ML VIAL IV PRN ×4 (09:48→20:22)
[2019-07-27] MEDS ORDERED: SKIN HEALING OINT (AQUAPHOR) 50 GM TUBE TOP PRN (15:07)
[2019-07-27] MEDS: clonazePAM 0.5 MG TABLET PO PRN (23:25)
[2019-07-28 06:22] LABS: Basophils # 0.1 10*3/uL (0.0-0.2); Basophils % 0.7 % (0.0-0.8); Eosinophils # 0.1 10*3/uL (0.0-0.87); Eosinophils % 1.5 % (0.00-10.9); Hematocrit 31.4 VOL% (35.7-47.0); Hemoglobin 9.7 GM/DL (12.0-16.0); Immature Granulocytes % 0.3 %; Immature Granulocytes Absolute 0.02 #; Lymphocytes # 0.8 10*3/uL (1.4-4.0); Lymphocytes % 10.3 % (21.3-54.2); Mean Corpuscular HGB Conc 30.9 GM/DL (32-36); Mean Corpuscular Volume 92.6 FL (87-102); Mean Platelet Volume 11.4 FL (9.6-12.0); Monocytes % 15.1 % (1.7-12.7); Neutrophils % 72.1 % (38.7-73.9); Platelet Count 275 T/CUMM (130-400); Red Blood Count 3.39 MC/CUMM (3.8-5.5); Red Cell Distribution Width 14.6 % (9.3-17.3); White Blood Count 7.4 T/CUMM (4-12)
[2019-07-28 06:44] LABS: Calcium 8.5 MG/DL (8.5-10.1); Osmolality,Calculated 287.8 MOS/KG (273-304)
[2019-07-28] MEDS: BUDESONIDE 0.25 MG/2 ML NEB RESP TX SCH ×2 (07:33→19:46)
[2019-07-28] MEDS: LEVOFLOXACIN INJ 500 MG in PREMIX 1 EACH IV SCH (08:32)
[2019-07-28] MEDS: POLYETHYLENE GLYCOL POWDER 17 GM PACK PO SCH (08:34)
[2019-07-28] MEDS: PANTOPRAZOLE 40 MG TABLET PO SCH (08:35)
[2019-07-28] MEDS: GEMFIBROZIL 600 MG TABLET PO SCH ×2 (08:35→21:06)
[2019-07-28] MEDS: predniSONE 5 MG TABLET PO SCH (08:35)
[2019-07-28] MEDS: ASCORBIC ACID 500 MG TABLET PO SCH (08:35)
[2019-07-28] MEDS: SERTRALINE 25 MG TABLET PO SCH (08:35)
[2019-07-28] MEDS: DOCUSATE SODIUM 100 MG CAPSULE PO SCH ×2 (08:35→21:06)
[2019-07-28] MEDS: LACTOBACILLUS ACIDOPHILUS/BULGARICUS CAPLET PO SCH (08:35)
[2019-07-28] MEDS: POTASSIUM CHLORIDE 20 MEQ TABLET PO SCH ×2 (08:35→21:06)
[2019-07-28] MEDS: MULTIVITAMIN (CENTRUM) TABLET PO SCH (08:35)
[2019-07-28] MEDS: SODIUM CHLORIDE 0.45% 1,000 ML IV SCH ×2 (08:40→21:12)
[2019-07-28] MEDS: ONDANSETRON 4 MG/2 ML VIAL IV PRN (09:27)
[2019-07-28] MEDS: VANCOMYCIN INJ 1,250 MG in SODIUM CHLORIDE 0.9% 250 ML IV SCH ×2 (10:22→22:43)
[2019-07-28] MEDS ORDERED: MAGNESIUM HYDROXIDE SUSP 30 ML UDCUP PO ONE (11:11)
[2019-07-28] MEDS: ALBUTEROL/IPRATROPIUM 3 ML NEB RESP TX PRN (15:13)
[2019-07-28] MEDS: clonazePAM 0.5 MG TABLET PO PRN (15:24)
[2019-07-29 05:35] LABS: Basophils % 0.6 % (0.0-0.8); Eosinophils # 0.1 10*3/uL (0.0-0.87); Eosinophils % 1.7 % (0.00-10.9); Hematocrit 27.7 VOL% (35.7-47.0); Hemoglobin 8.5 GM/DL (12.0-16.0); Immature Granulocytes % 0.4 %; Immature Granulocytes Absolute 0.02 #; Lymphocytes # 0.8 10*3/uL (1.4-4.0); Lymphocytes % 14.5 % (21.3-54.2); Mean Corpuscular HGB Conc 30.7 GM/DL (32-36); Mean Corpuscular Volume 93.9 FL (87-102); Mean Platelet Volume 11.3 FL (9.6-12.0); Monocytes % 17.1 % (1.7-12.7); Neutrophils % 65.7 % (38.7-73.9); Platelet Count 218 T/CUMM (130-400); Red Blood Count 2.95 MC/CUMM (3.8-5.5); Red Cell Distribution Width 14.6 % (9.3-17.3); White Blood Count 5.5 T/CUMM (4-12)
[2019-07-29 05:51] LABS: Calcium 8.2 MG/DL (8.5-10.1); Osmolality,Calculated 294.6 MOS/KG (273-304)
[2019-07-29 06:25] LABS: Anisocytosis 1+; Eosinophils 1 % (0-10); Hypochromasia 1+; Lymphocytes 15 % (20-55); Microcytosis 1+; Platelet Estimate Adequate; Segmented Neutrophils 68 % (50-85); Total Cells Counted 100
[2019-07-29] MEDS: BUDESONIDE 0.25 MG/2 ML NEB RESP TX SCH ×2 (07:37→19:54)
[2019-07-29] MEDS: POLYETHYLENE GLYCOL POWDER 17 GM PACK PO SCH (08:22)
[2019-07-29] MEDS: DOCUSATE SODIUM 100 MG CAPSULE PO SCH ×2 (08:22→21:27)
[2019-07-29] MEDS: PANTOPRAZOLE 40 MG TABLET PO SCH (08:22)
[2019-07-29] MEDS: ASCORBIC ACID 500 MG TABLET PO SCH (08:22)
[2019-07-29] MEDS: MULTIVITAMIN (CENTRUM) TABLET PO SCH (08:22)
[2019-07-29] MEDS: SERTRALINE 25 MG TABLET PO SCH (08:23)
[2019-07-29] MEDS: LACTOBACILLUS ACIDOPHILUS/BULGARICUS CAPLET PO SCH (08:23)
[2019-07-29] MEDS: GEMFIBROZIL 600 MG TABLET PO SCH ×2 (08:23→21:26)
[2019-07-29] MEDS: predniSONE 5 MG TABLET PO SCH (08:23)
[2019-07-29] MEDS: POTASSIUM CHLORIDE 20 MEQ TABLET PO SCH ×2 (08:23→21:25)
[2019-07-29] MEDS: LEVOFLOXACIN INJ 500 MG in PREMIX 1 EACH IV SCH (08:24)
[2019-07-29] MEDS: VANCOMYCIN INJ 1,250 MG in SODIUM CHLORIDE 0.9% 250 ML IV SCH (09:51)
[2019-07-29] MEDS: clonazePAM 0.5 MG TABLET PO PRN ×2 (10:24→16:09)
[2019-07-29] MEDS: SODIUM CHLORIDE 0.45% 1,000 ML IV SCH (12:31)
[2019-07-29] MEDS ORDERED: MAGNESIUM HYDROXIDE SUSP 30 ML UDCUP PO ONE (17:09)
[2019-07-29] MEDS: ALBUTEROL/IPRATROPIUM 3 ML NEB RESP TX PRN (19:54)
[2019-07-29] MEDS: PROMETHAZINE 25 MG TABLET PO PRN (22:39)
[2019-07-29] MEDS ORDERED: diphenhydrAMINE 50 MG/1 ML VIAL IM PRN (23:17)
[2019-07-30 05:15] LABS: Basophils % 0.6 % (0.0-0.8); Eosinophils # 0.1 10*3/uL (0.0-0.87); Eosinophils % 1.7 % (0.00-10.9); Hematocrit 30.2 VOL% (35.7-47.0); Hemoglobin 9.4 GM/DL (12.0-16.0); Immature Granulocytes % 0.6 %; Immature Granulocytes Absolute 0.03 #; Lymphocytes # 0.9 10*3/uL (1.4-4.0); Lymphocytes % 15.9 % (21.3-54.2); Mean Corpuscular HGB Conc 31.1 GM/DL (32-36); Mean Corpuscular Volume 94.1 FL (87-102); Mean Platelet Volume 10.9 FL (9.6-12.0); Monocytes % 13.8 % (1.7-12.7); Neutrophils % 67.4 % (38.7-73.9); Platelet Count 262 T/CUMM (130-400); Red Blood Count 3.21 MC/CUMM (3.8-5.5); Red Cell Distribution Width 14.7 % (9.3-17.3); White Blood Count 5.4 T/CUMM (4-12)
[2019-07-30 05:16] LABS: Basophils % 0.8 % (0.0-0.8); Eosinophils # 0.1 10*3/uL (0.0-0.87); Eosinophils % 2.1 % (0.00-10.9); Hematocrit 30.3 VOL% (35.7-47.0); Hemoglobin 9.2 GM/DL (12.0-16.0); Immature Granulocytes % 0.8 %; Immature Granulocytes Absolute 0.04 #; Lymphocytes # 0.9 10*3/uL (1.4-4.0); Lymphocytes % 16.6 % (21.3-54.2); Mean Corpuscular HGB Conc 30.4 GM/DL (32-36); Mean Corpuscular Volume 95.3 FL (87-102); Mean Platelet Volume 10.9 FL (9.6-12.0); Monocytes % 14.5 % (1.7-12.7); Neutrophils % 65.2 % (38.7-73.9); Platelet Count 242 T/CUMM (130-400); Red Blood Count 3.18 MC/CUMM (3.8-5.5); Red Cell Distribution Width 14.6 % (9.3-17.3); White Blood Count 5.3 T/CUMM (4-12)
[2019-07-30 05:59] LABS: Calcium 8.9 MG/DL (8.5-10.1)
[2019-07-30 06:01] LABS: Calcium 8.7 MG/DL (8.5-10.1); Osmolality,Calculated 297.4 MOS/KG (273-304)
[2019-07-30] MEDS: BUDESONIDE 0.25 MG/2 ML NEB RESP TX SCH ×2 (07:40→20:20)
[2019-07-30] MEDS: SODIUM CHLORIDE 0.45% 1,000 ML IV SCH (10:00)
[2019-07-30] MEDS: POTASSIUM CHLORIDE 20 MEQ TABLET PO SCH ×2 (10:01→21:26)
[2019-07-30] MEDS: LACTOBACILLUS ACIDOPHILUS/BULGARICUS CAPLET PO SCH (10:01)
[2019-07-30] MEDS: MULTIVITAMIN (CENTRUM) TABLET PO SCH (10:01)
[2019-07-30] MEDS: LEVOFLOXACIN INJ 500 MG in PREMIX 1 EACH IV SCH (10:01)
[2019-07-30] MEDS: DOCUSATE SODIUM 100 MG CAPSULE PO SCH ×2 (10:01→21:24)
[2019-07-30] MEDS: GEMFIBROZIL 600 MG TABLET PO SCH ×2 (10:01→21:26)
[2019-07-30] MEDS: SERTRALINE 25 MG TABLET PO SCH (10:02)
[2019-07-30] MEDS: predniSONE 5 MG TABLET PO SCH (10:02)
[2019-07-30] MEDS: POLYETHYLENE GLYCOL POWDER 17 GM PACK PO SCH (10:02)
[2019-07-30] MEDS: ASCORBIC ACID 500 MG TABLET PO SCH (10:02)
[2019-07-30] MEDS: PANTOPRAZOLE 40 MG TABLET PO SCH (10:02)
[2019-07-30] MEDS: PROMETHAZINE 25 MG TABLET PO PRN (11:50)
[2019-07-30] MEDS: clonazePAM 0.5 MG TABLET PO PRN (13:36)
[2019-07-30] MEDS: ALBUTEROL/IPRATROPIUM 3 ML NEB RESP TX PRN (20:20)
[2019-07-30] MEDS: ACETAMINOPHEN 325 MG TABLET PO PRN (21:30)
[2019-07-31 06:27] LABS: Basophils % 0.7 % (0.0-0.8); Eosinophils # 0.1 10*3/uL (0.0-0.87); Eosinophils % 1.8 % (0.00-10.9); Hematocrit 29.7 VOL% (35.7-47.0); Immature Granulocytes % 0.5 %; Immature Granulocytes Absolute 0.03 #; Lymphocytes # 0.8 10*3/uL (1.4-4.0); Lymphocytes % 12.9 % (21.3-54.2); Mean Corpuscular HGB Conc 30.3 GM/DL (32-36); Mean Corpuscular Volume 94.6 FL (87-102); Mean Platelet Volume 10.9 FL (9.6-12.0); Monocytes % 12.6 % (1.7-12.7); Neutrophils % 71.5 % (38.7-73.9); Platelet Count 255 T/CUMM (130-400); Red Blood Count 3.14 MC/CUMM (3.8-5.5); Red Cell Distribution Width 14.6 % (9.3-17.3)
[2019-07-31] MEDS: SODIUM CHLORIDE 0.45% 1,000 ML IV SCH ×2 (07:33→22:03)
[2019-07-31] MEDS: BUDESONIDE 0.25 MG/2 ML NEB RESP TX SCH ×2 (07:35→19:32)
[2019-07-31 08:21] LABS: Apearance,Urine CLOUDY (Clear); Bilirubin,Urine Negative (Negative); Blood, Urine Negative (Negative); Glucose,Urine (UA) Negative (Negative); Ketones,Urine Negative (Negative); Mucus,Urine Occasional /LPF (Occasional); Nitrite,Urine Negative (Negative); Protein,Urine 100 MG/DL; RBC,Urine 41 /HPF (0-4); Urine Color Yellow (Yellow); Urine Urobilinogen < 2.0 EU/DL (0.2-1.0); WBC,Urine 484 /HPF (0-6)
[2019-07-31] MEDS: POTASSIUM CHLORIDE 20 MEQ TABLET PO SCH ×2 (09:54→21:59)
[2019-07-31] MEDS: LACTOBACILLUS ACIDOPHILUS/BULGARICUS CAPLET PO SCH (09:54)
[2019-07-31] MEDS: LEVOFLOXACIN 500 MG TABLET PO SCH (09:54)
[2019-07-31] MEDS: POLYETHYLENE GLYCOL POWDER 17 GM PACK PO SCH (09:54)
[2019-07-31] MEDS: ASCORBIC ACID 500 MG TABLET PO SCH (09:54)
[2019-07-31] MEDS: PANTOPRAZOLE 40 MG TABLET PO SCH (09:55)
[2019-07-31] MEDS: GEMFIBROZIL 600 MG TABLET PO SCH ×2 (09:55→21:59)
[2019-07-31] MEDS: MULTIVITAMIN (CENTRUM) TABLET PO SCH (09:55)
[2019-07-31] MEDS: SERTRALINE 25 MG TABLET PO SCH (09:55)
[2019-07-31] MEDS: predniSONE 5 MG TABLET PO SCH (09:55)
[2019-07-31] MEDS: DOCUSATE SODIUM 100 MG CAPSULE PO SCH ×2 (09:56→21:59)
[2019-07-31] MEDS: ONDANSETRON 4 MG/2 ML VIAL IV PRN (12:40)
[2019-07-31] MEDS: clonazePAM 0.5 MG TABLET PO PRN (13:38)
[2019-07-31] MEDS: PROMETHAZINE 25 MG/1 ML VIAL IM PRN (14:04)
[2019-07-31] MEDS: ACETAMINOPHEN 325 MG TABLET PO PRN (21:59)
[2019-08-01 05:36] LABS: Basophils % 0.3 % (0.0-0.8); Eosinophils # 0.1 10*3/uL (0.0-0.87); Eosinophils % 2.4 % (0.00-10.9); Hemoglobin 8.9 GM/DL (12.0-16.0); Immature Granulocytes % 0.5 %; Immature Granulocytes Absolute 0.03 #; Lymphocytes % 17.4 % (21.3-54.2); Mean Corpuscular HGB Conc 30.7 GM/DL (32-36); Mean Corpuscular Volume 93.2 FL (87-102); Mean Platelet Volume 11.2 FL (9.6-12.0); Monocytes % 13.1 % (1.7-12.7); Neutrophils % 66.3 % (38.7-73.9); Platelet Count 273 T/CUMM (130-400); Red Blood Count 3.11 MC/CUMM (3.8-5.5); Red Cell Distribution Width 14.7 % (9.3-17.3); White Blood Count 5.9 T/CUMM (4-12)
[2019-08-01 06:10] LABS: Alanine Aminotransferase 13 U/L (13-56); Albumin 2.7 G/DL (3.4-5.0); Alkaline Phosphatase 147 U/L (45-117); Aspartate Amino Transferase 9 U/L (0-37); Bilirubin,Total < 0.39 MG/DL (0.2-1.0); Blood Urea Nitrogen 20 MG/DL (7-18); Calcium 8.9 MG/DL (8.5-10.1); Estimated Glom Filtration Rate 58 ML/MIN; Glucose 127 MG/DL (74-106); Osmolality,Calculated 290.8 MOS/KG (273-304); Total Protein 5.4 G/DL (6.4-8.3)
[2019-08-01] MEDS: BUDESONIDE 0.25 MG/2 ML NEB RESP TX SCH ×2 (07:45→19:19)
[2019-08-01] MEDS: SODIUM CHLORIDE 0.45% 1,000 ML IV SCH ×2 (07:53→12:16)
[2019-08-01] MEDS: LEVOFLOXACIN 500 MG TABLET PO SCH (08:23)
[2019-08-01] MEDS: GEMFIBROZIL 600 MG TABLET PO SCH ×2 (08:23→21:03)
[2019-08-01] MEDS: POTASSIUM CHLORIDE 20 MEQ TABLET PO SCH ×2 (08:23→21:04)
[2019-08-01] MEDS: predniSONE 5 MG TABLET PO SCH (08:23)
[2019-08-01] MEDS: PROMETHAZINE 25 MG TABLET PO PRN (08:23)
[2019-08-01] MEDS: MULTIVITAMIN (CENTRUM) TABLET PO SCH (08:23)
[2019-08-01] MEDS: DOCUSATE SODIUM 100 MG CAPSULE PO SCH ×2 (08:23→21:04)
[2019-08-01] MEDS: PANTOPRAZOLE 40 MG TABLET PO SCH (08:23)
[2019-08-01] MEDS: LACTOBACILLUS ACIDOPHILUS/BULGARICUS CAPLET PO SCH (08:23)
[2019-08-01] MEDS: POLYETHYLENE GLYCOL POWDER 17 GM PACK PO SCH (08:24)
[2019-08-01] MEDS: SERTRALINE 25 MG TABLET PO SCH (08:24)
[2019-08-01] MEDS: ASCORBIC ACID 500 MG TABLET PO SCH (08:24)
[2019-08-01] MEDS: clonazePAM 0.5 MG TABLET PO PRN ×2 (10:18→21:03)
[2019-08-01] MEDS: PROMETHAZINE 25 MG/1 ML VIAL IM PRN (10:49)
[2019-08-01] MEDS ORDERED: cefTRIAXone 1,000 MG in SYRINGE 1 EACH IV SCH (17:00)
[2019-08-02 06:38] LABS: Basophils % 0.3 % (0.0-0.8); Eosinophils # 0.1 10*3/uL (0.0-0.87); Eosinophils % 0.9 % (0.00-10.9); Hematocrit 29.7 VOL% (35.7-47.0); Immature Granulocytes % 1.8 %; Immature Granulocytes Absolute 0.18 #; Lymphocytes # 0.7 10*3/uL (1.4-4.0); Mean Corpuscular HGB Conc 30.3 GM/DL (32-36); Mean Corpuscular Volume 93.7 FL (87-102); Monocytes % 9.3 % (1.7-12.7); Neutrophils % 80.7 % (38.7-73.9); Platelet Count 268 T/CUMM (130-400); Red Blood Count 3.17 MC/CUMM (3.8-5.5); Red Cell Distribution Width 14.4 % (9.3-17.3); White Blood Count 10.2 T/CUMM (4-12)
[2019-08-02 06:58] LABS: Calcium 8.7 MG/DL (8.5-10.1); Osmolality,Calculated 292.7 MOS/KG (273-304)
[2019-08-02] MEDS: BUDESONIDE 0.25 MG/2 ML NEB RESP TX SCH (07:36)
[2019-08-02] MEDS: SERTRALINE 25 MG TABLET PO SCH (08:54)
[2019-08-02] MEDS: POTASSIUM CHLORIDE 20 MEQ TABLET PO SCH (08:54)
[2019-08-02] MEDS: predniSONE 5 MG TABLET PO SCH (08:54)
[2019-08-02] MEDS: DOCUSATE SODIUM 100 MG CAPSULE PO SCH (08:55)
[2019-08-02] MEDS: PANTOPRAZOLE 40 MG TABLET PO SCH (08:55)
[2019-08-02] MEDS: ASCORBIC ACID 500 MG TABLET PO SCH (08:55)
[2019-08-02] MEDS: MULTIVITAMIN (CENTRUM) TABLET PO SCH (08:55)
[2019-08-02] MEDS: GEMFIBROZIL 600 MG TABLET PO SCH (08:55)
[2019-08-02] MEDS: SODIUM CHLORIDE 0.45% 1,000 ML IV SCH ×2 (08:56→08:57)
[2019-08-02] MEDS: POLYETHYLENE GLYCOL POWDER 17 GM PACK PO SCH (08:56)
[2019-08-02] MEDS: LACTOBACILLUS ACIDOPHILUS/BULGARICUS CAPLET PO SCH (08:56)
[2019-08-02] MEDS ORDERED: FLUCONAZOLE 200 MG TABLET PO SCH (09:00)
[2019-08-02] MEDS: clonazePAM 0.5 MG TABLET PO PRN (11:16)
[2019-08-02 12:39] VITALS: BP 186/72
== END 2019-08-02 16:30 | disposition swing bed (61) | DRG 356 ==
LOC: EDUNIT# → EDBD → N.ED 08:21 → N.EDINP 11:23 → N.5E 12:36
PROVIDERS: ADMIT Family Medicine; ATTEND Family Medicine
PROC: LAPCHOL (2019-07-23 10:34)